=== PATIENT | male | born 1990 | race Caucasian/White ===

== ENCOUNTER 2020-07-27 10:48 | Outpatient (REF) | payer OTHER, SELFPAY ==
[2020-07-27 11:26] LABS: COVID-19 Test Negative (Negative); IDNOW Serial# 55D5AD1C
== END 2020-07-27 10:49 | disposition home or self-care (01) ==
LOC: HO.LAB 10:48
PROVIDERS: Visit Provider Internal Medicine
DX: Z20.822 Contact with and (suspected) exposure to COVID-19 (principal)
CPT/HCPCS: 36415; 87635; C9803

== ENCOUNTER 2021-02-19 04:57 | Inpatient (IN) | payer MEDICAID, SELFPAY ==
--- NOTE | ~2021-02-19 | MR_ITS ---
EXAMINATION: MR ABDOMEN WITHOUT CONTRAST CLINICAL INFORMATION: Acute gallstone pancreatitis COMPARISON: None. TECHNIQUE: MR abdomen is performed without gadolinium contrast. MRCP sequences were also performed. FINDINGS: LUNG BASES: The visualized lung bases are unremarkable. LIVER, GALLBLADDER, AND BILIARY TREE: The liver is normal in size, smooth in contour, and normal in signal. No focal hepatic lesion. There are gallstones in the gallbladder. The gallbladder wall is thickened and edematous. The gallbladder wall measures up to 1 cm. The gallbladder is normal in size. There is no intrahepatic biliary duct dilatation. The common bile duct is minimally dilated measuring 8 to 9 mm. No common bile duct stone is seen. PANCREAS: The pancreas is enlarged. There is diffuse interstitial edema of the pancreas. The main pancreatic duct does not appear dilated. There is peripancreatic fluid and small amount of fluid in the bilateral anterior pararenal spaces and bilateral paracolic gutters likely related to pancreatitis. No focal fluid in or adjacent to the pancreas is seen. SPLEEN: Unremarkable. ADRENAL GLANDS: Unremarkable. KIDNEYS AND URETERS: The kidneys are normal in size and shape. No hydronephrosis. No perinephric stranding. GASTROINTESTINAL TRACT: No bowel obstruction. No ascites or fluid collection. ABDOMINAL WALL: No significant hernia is appreciated. LYMPH NODES: No lymphadenopathy. VASCULAR: Unremarkable. OSSEOUS STRUCTURES: Marrow signal normal. MR/MR MRCP IMPRESSION: Acute interstitial pancreatitis similar to recent CT scan. Small amount of ascites. No organized fluid collection or pancreatic duct dilatation seen. Gallstones. Diffuse gallbladder wall thickening and edema. Normal caliber intrahepatic bile ducts. Minimally dilated common bile duct measuring 8 to 9 mm. No common bile duct stone seen.
--- NOTE | ~2021-02-19 | US_ITS ---
EXAMINATION: US ABDOMEN LIMITED CLINICAL INFORMATION: Right upper quadrant pain. COMPARISON: Corresponding CT abdomen pelvis TECHNIQUE: Real-time imaging of the right upper quadrant abdominal viscera. Today's examination is mildly limited secondary to overlying bowel gas. FINDINGS: PANCREAS: The pancreas is primarily obscured by overlying bowel gas and therefore not accurately evaluated. A small amount of peripancreatic fluid is noted. LIVER: The liver is normal in size. The liver contour is normal. Parenchymal echogenicity is normal. No focal hepatic lesion. Trace intrahepatic biliary ductal dilatation demonstrated. GALLBLADDER: Abnormal appearance of the gallbladder. The gallbladder wall demonstrates diffuse heterogeneous thickening measuring up to 1.7 cm. Fluid is noted within the gallbladder wall. Echogenic foci in the uterus of the gallbladder wall suggests adenomyomatosis. Gallstones are also noted within the gallbladder lumen. A sonographic Su sign is also present. COMMON BILE DUCT: Poorly visualized but measures approximately 8 mm in diameter. RIGHT KIDNEY: Normal. No hydronephrosis. No renal calculi or focal parenchymal lesions. The kidney measures 11.2 cm in maximum dimension. FREE FLUID: Minimal US/US abdomen limited IMPRESSION: 1. The pancreas is poorly visualized although peripancreatic fluid is noted consistent with suspected pancreatitis identified on corresponding CT imaging. 2. Abnormal appearance of the gallbladder demonstrates gallstones, diffuse gallbladder wall thickening and a positive sonographic Su's sign. Ultrasound findings would be consistent with acute cholecystitis, however, it is also possible they are reactive secondary to adjacent pancreatitis. Clinical correlation is recommended. Short-term interval follow-up imaging is recommended at a minimum.
--- NOTE | ~2021-02-19 | CT_ITS ---
EXAMINATION: CT ABDOMEN AND PELVIS WITH CONTRAST CLINICAL INFORMATION: Follow-up pancreatitis COMPARISON: Previous CT scan, ultrasound and MRI of the abdomen 02/19/2021 TECHNIQUE: Multidetector volumetric images were obtained from the superior aspect of the liver through the pubic symphysis following administration 85 mL of Omnipaque 350 intravenous contrast. Sagittal and coronal reformatted images were obtained on the technologist's workstation. Oral contrast: Yes This CT examination was performed using dose optimization techniques as appropriate, variously including the following: *Automated exposure control *Adjustment of mA and/or kV according to patient size (this includes techniques or standardized protocols for targeted exams where dose is matched to indication/reason for exam; i.e. extremities or head) *Use of iterative reconstruction technique DLP: 499 mGy-cm FINDINGS: LUNG BASES: There are bilateral pleural effusions and lower lobe atelectasis/consolidation, left greater than right. This is increased from previous exam. LIVER, GALLBLADDER, AND BILIARY TREE: The liver is normal in size, shape, and attenuation. No focal hepatic lesion or biliary ductal dilatation is present. The gallbladder is normal in size. There is pericholecystic fluid and mild gallbladder wall edema. PANCREAS: The pancreas enhances normally. The pancreas appears enlarged. There is interval increase in fluid seen surrounding the pancreas, in the lesser sac, periportal region, pararenal fascia, small bowel mesentery, bilateral paracolic gutters and pelvis. There is no focal collection in the pancreas. The main pancreatic duct does not appear dilated. SPLEEN: The spleen is slightly enlarged and measures 14 cm in length. The spleen is otherwise unremarkable. ADRENAL GLANDS: Unremarkable. KIDNEYS AND URETERS: The kidneys are normal in size, shape, and attenuation. No hydronephrosis, hydroureter, or calculi seen. No perinephric stranding. BLADDER: Unremarkable. GASTROINTESTINAL TRACT: The small and large bowel are unremarkable. ABDOMINAL WALL: No significant hernia is appreciated. LYMPH NODES: Normal. VASCULAR: Unremarkable. The splenic vein and portal vein are patent. PELVIC VISCERA: Unremarkable. OSSEOUS STRUCTURES: Unremarkable. CT/CT abdomen pelvis w con IMPRESSION: Acute interstitial pancreatitis. The pancreas enhances normally. There is interval increase in ascites and fluid surrounding the pancreas. There is interval increase in bilateral pleural effusions and adjacent lower lobe atelectasis or consolidation.
--- NOTE | ~2021-02-19 | CT_ITS ---
EXAMINATION: CT ABDOMEN AND PELVIS WITH CONTRAST CLINICAL INFORMATION: Follow-up pancreatitis COMPARISON: Previous CT scans most recent 02/23/2021 TECHNIQUE: Multidetector volumetric images were obtained from the superior aspect of the liver through the pubic symphysis following administration 85 mL of Omnipaque 350 intravenous contrast. Sagittal and coronal reformatted images were obtained on the technologist's workstation. Oral contrast: Yes This CT examination was performed using dose optimization techniques as appropriate, variously including the following: *Automated exposure control *Adjustment of mA and/or kV according to patient size (this includes techniques or standardized protocols for targeted exams where dose is matched to indication/reason for exam; i.e. extremities or head) *Use of iterative reconstruction technique DLP: 462 mGy-cm FINDINGS: LUNG BASES: There are bilateral pleural effusions and lower lobe atelectasis or elevation. This consolidation. This LIVER, GALLBLADDER, AND BILIARY TREE: The liver is normal in size, shape, and attenuation. No focal hepatic lesion or biliary ductal dilatation is present. The gallbladder is normal in size. There is gallbladder wall thickening or pericholecystic fluid that appears unchanged. PANCREAS: There is enlargement of the pancreas and peripancreatic fluid again suggestive of acute interstitial pancreatitis. There is no evidence of pancreatic necrosis. No focal fluid collection in the pancreas or pancreatic duct dilatation is seen. There are fluid collections are seen surrounding the pancreas, surrounding the stomach and spleen, in the lesser sac, periportal region, bilateral pararenal spaces and at the root of the small bowel mesentery. There is a small amount of fluid around the liver and in the pelvis. This does not appear appreciably changed from most recent exam 02/23/2021. SPLEEN: The spleen is slightly enlarged measuring 14.5 cm in length. ADRENAL GLANDS: Unremarkable. KIDNEYS AND URETERS: The kidneys are normal in size, shape, and attenuation. No hydronephrosis, hydroureter, or calculi seen. No perinephric stranding. BLADDER: Unremarkable. GASTROINTESTINAL TRACT: The small and large bowel are unremarkable. The appendix is unremarkable. ABDOMINAL WALL: No significant hernia is appreciated. LYMPH NODES: Normal. VASCULAR: Unremarkable. PELVIC VISCERA: Unremarkable. OSSEOUS STRUCTURES: Unremarkable. CT/CT abdomen pelvis w con IMPRESSION: No change in acute pancreatitis and surrounding peripancreatic fluid and ascites from most recent exam 02/23/2021. Bilateral pleural effusions and adjacent lower lobe atelectasis or consolidation which appears slightly improved on the right.
--- NOTE | ~2021-02-19 | CT_ITS ---
EXAMINATION: CT ABDOMEN AND PELVIS WITH CONTRAST CLINICAL INFORMATION: Severe diffuse abdominal pain, nausea and vomiting for 2 days. COMPARISON: Abdomen CT from 01/24/2016 TECHNIQUE: Multidetector volumetric images were obtained from the superior aspect of the liver through the pubic symphysis following administration 85 mL of Omnipaque 350 intravenous contrast. Sagittal and coronal reformatted images were obtained on the technologist's workstation. Oral contrast was given. This CT examination was performed using dose optimization techniques as appropriate, variously including the following: *Automated exposure control *Adjustment of mA and/or kV according to patient size (this includes techniques or standardized protocols for targeted exams where dose is matched to indication/reason for exam; i.e. extremities or head) *Use of iterative reconstruction technique DLP: 511 mGy-cm FINDINGS: LUNG BASES: Normal. No pulmonary consolidation or pleural effusion at either lung base. HEPATOBILIARY: Liver has normal size and contour. No focal liver lesion. Gallbladder wall is diffusely thickened/edematous, and this appears to be reactive to the pancreatitis. No radiopaque gallstones. Common bile duct measures up to 0.7 cm. There are no radiopaque stones within the common duct. PANCREAS: Diffuse interstitial edema and enlargement of the pancreas without focal necrosis. Peripancreatic fluid is present without focal organized collection. No pancreatic ductal dilatation. SPLEEN: Normal size. There appears to be a very small subcapsular cyst in the superior spleen. ADRENAL GLANDS: Normal. KIDNEYS AND URETERS: The kidneys have normal size and cortical thickness. No perinephric fluid collection. No urolithiasis or hydroureteronephrosis. BLADDER: Normal. No calculi or wall thickening. BOWEL AND PERITONEUM: Stomach is unremarkable. No dilated loops of bowel. The appendix is normal. No overt bowel wall thickening or mesenteric fat stranding. No pneumoperitoneum. Small volume of ascitic fluid is present in the abdomen and pelvis.. ABDOMINAL WALL: Unremarkable. VASCULATURE: Unremarkable. LYMPH NODES: No pathologic sized lymph nodes in the abdomen or pelvis. No inguinal lymphadenopathy. PELVIC VISCERA: Prostate gland is unremarkable. SKELETAL: The visualized lower thoracic and lumbar vertebra are unremarkable. There is a bone island of the proximal right femur. No suspicious osseous lesion. CT/CT abdomen pelvis w con IMPRESSION: * Acute interstitial pancreatitis with peripancreatic fluid. No focal organized collection. * The diffuse gallbladder wall thickening/edema appears to be reactive to the pancreatitis. No gallstones are seen. * Small amount of ascitic fluid is present in the abdomen and pelvis.
[2021-02-19 05:10] VITALS: BP 181/114; PULSE 58; RESP 16; TEMP 36.7; O2SAT 97; BMI 28.2
--- NOTE | 2021-02-19 05:26 | ED.ABDPAIN ---
HPI - Abdominal Pain General Chief Complaint: Abdominal Pain Stated Complaint: stomach pain Time Seen by Provider: 02/19/21 05:18 Source: patient Mode of arrival: ambulatory Limitations: no limitations History of Present Illness HPI narrative: 30-year-old male who presents emergency department for evaluation of 3 days of abdominal pain, nausea and vomiting. The patient states that he is having pain throughout his entire abdomen. The pain is a constant, ripping like pain which is 10/10 at its worst. Patient complains of constant nausea with 2-3 episodes of vomiting per day. States he has not been able to eat or drink the last 24 hours. The patient denied change in his bowel movements; he has had no diarrhea, dark tarry stools or bloody stools. He states that he is constipated is not moved his bowels and 24 hours. He denied fever, chills, chest pain, shortness of breath, frequency, urgency or dysuria. This is his 1st episode of this type of severe pain. The patient denies alcohol and drug use. Related Data Home Medications Medication Instructions Recorded Confirmed bismuth subsalicylate 525 mg/15 mL 525 mg PO Q30M PRN 02/19/21 02/19/21 oral suspension ibuprofen 200 mg tablet 400 mg PO Q6H PRN 02/19/21 02/19/21 Allergies Allergy/AdvReac Type Severity Reaction Status Date / Time No Known Allergies Allergy Verified 02/19/21 05:10 [No Known Allergies*] Review of Systems Review of Systems Yes all other systems are reviewed and are negative Physical Exam Vital Signs: Vital Signs: Last Vital Signs Temp 98 F 02/21/21 15:43 Pulse 100 02/21/21 15:43 Resp 18 02/21/21 15:43 BP 165/90 H 02/21/21 15:43 Pulse Ox 94 02/21/21 15:43 Body Mass Index 28.2 Const: Other: Awake, alert, male patient, he does appear to be pale, jaundice with icteric sclera, he also appears to be in distress secondary to his abdominal pain. He is able to answer all questions appropriately. HENMT: Head: Yes normal to inspection, Yes normocephalic and Yes atraumatic Ears: external ears normal General nose exam: Normal external nose present Face and sinus: Yes normal facial exam Mouth: Normal oral and palatal mucosa present Throat: Yes posterior oropharynx normal Eyes: Alignment and Position: position normal Periorbital: periorbital findings normal Eyelids: Yes eyelids normal Conjunctivae: conjunctivae normal Sclerae: scleral abnormal (Icteric) Pupils: Equal, round and reactive pupils present Neck: Neck: Yes normal visual inspection, Yes no lymphadenopathy, Yes trachea midline and Yes supple Chest: Chest palpation & inspection: normal inspection of the chest and normal palpation of entire chest wall Resp: Effort & Inspection: normal respiratory effort and able to speak in complete sentences Auscultation: clear to auscultation bilaterally Cardio: Rate: regular rate Rhythm: regular rhythm Heart sounds: S1 normal heart sound present, S2 normal heart sound present and no murmurs GI: Inspection: Yes normal to inspection Palpation (GI): Soft to palpation, Tenderness to palpation present (GI) in the epigastrum (Mild), in the LLQ (Mild), in the RLQ (Moderate), in the LUQ (Mild) and in the RUQ (Moderate) and no guarding Auscultation: normal bowel sounds : General: Yes no CVA tenderness Back/Spine/Pelvis: Back: no CVA tenderness Skin: Other: Pale, jaundice Neuro: Cranial nerves: Yes CN's II-XII intact bilaterally and Yes Equal, round and reactive pupils present Cognition (Neuro): normal cognition Motor exam (neuro): 5/5 motor strength present throughout Extrem: General: Yes normal to inspection Psych: Appearance: grossly normal Speech and movement: Normal speech and movement present Affect: normal affect Attitude: cooperative Thought process: Normal thought process present Thought content: Normal thought content present Course Course Course Narrative: 30-year-old male with a history of hypertension not on medications who presents emergency department for evaluation of 2-3 days severe abdominal pain with constant nausea and 2-3 episodes of vomiting per day. Patient is not been able to eat or drink for lost 24 hours secondary to symptoms. The patient's vital signs did reveal that he was hypertensive with a blood pressure of 181/114 otherwise were unremarkable. The patient appeared to be pale, his skin was jaundice and sq tearing. The patient abdominal exam revealed diffuse abdominal tenderness with increased tenderness in the right upper quadrant and right lower quadrant. The differential includes was not limited to gastritis, esophagitis, biliary disease, appendicitis, diverticulitis, gallstone pancreatitis, acute hepatitis, infectious hepatitis. I ordered a CBC, CMP, lipase, urinalysis, alcohol level, urine drug screen. CT scan of the abdomen pelvis with IV contrast will also be obtained . The patient's's pain was treated Toradol 30 mg IV, Zofran 4 mg IV and normal saline x1 L. 0643: The patient got no improvement with the Toradol and I did order morphine 4 mg IV. The patient's laboratory evaluation [place] [address], and elevated H&H of 17 and 53 and an elevated platelet count of 459. The patient's LFTs were abnormal with an elevated AST and ALT of 119 into 139. Patient's alk-phos was elevated 243 in the patient's total bilirubin was elevated at 6.3. These findings suggest that the patient does have an obstructive process, most likely gallstone pancreatitis. Patient's lipase is pending but the lab states that his high and they are trying to dilute it to get a number. Given the potential for pancreatic necrosis, I did order lactic acid lipase and blood cultures x2. Patient will be treated with Zosyn 4.5 g IV. 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 He states however he does purchase gabapentin and takes 6000 mg of gabapentin per day. It is possible that high does the gabapentin could be causing his pancreatitis as well. At the end of my shift, the lipase is pending in the patient's CT scan is pending. The patient's care was turned over to my colleague, Dr. Coffey. MDM - Abdominal Pain Lab Data Result diagrams: 02/21/21 08:35 02/21/21 08:35 Labs: Lab Results 02/19/21 02/19/21 02/19/21 Range/Units 05:24 05:24 05:24 WBC 23.7 H (4.8-10.8) X10*3/uL RBC 6.31 H (4.60-5.80) X10*6/uL Hgb 17.2 (14.0-18.0) g/dl Hct 53.0 H (42.0-52.0) % MCV 84.0 (80.0-98.0) fL MCH 27.3 (27.0-33.0) pg MCHC 32.5 (31.0-36.0) g/dl RDW 15.0 (11.0-16.0) % Plt Count 459 H (160-400) X10*3/uL MPV 10.8 (9.4-12.4) fL Immature Gran % (Auto) 0.5 H (0.0-0.4) % Neut % (Auto) 87.8 H (45-73) % Lymph % (Auto) 4.5 L (20-40) % [place] % (Auto) 7.0 (2-11) % Eos % (Auto) 0.0 (0-4) % Baso % (Auto) 0.2 (0-2) % Lymph # (Auto) 1.1 L (1.2-4.9) X10*3/uL [place] # (Auto) 1.7 H (0.1-1.2) X10*3/uL Eos # (Auto) 0.0 (0.0-0.4) X10*3/uL Baso # (Auto) 0.1 (0.0-0.2) X10*3/uL Abs Immat Gran (auto) 0.11 H (0.00-0.03) X10*3/uL Absolute Neuts (auto) 20.8 H (2.0-8.3) x10*3/uL Absolute Nucleated RBC 0.000 (0.0-0.012) X10*3/uL Nucleated RBC % (auto) 0.0 (0.0-0.2) /100WBC Smear Tech's Comments VERIFIED Sodium 142 (135-145) mmol/L Potassium 4.2 (3.3-5.1) mmol/L Chloride 99 (96-108) mmol/L Carbon Dioxide 26 (22-29) mmol/L Anion Gap 21 H (12-20) BUN 8 L (9-16) mg/dL Creatinine 1.04 (0.5-1.4) mg/dL Estim Creat Clear Calc 105.3 Estimated GFR > 60 Random Glucose TNP Fasting Glucose 197 H (60-99) mg/dL Lactic Acid (0.5-2.0) mmol/L Calcium 9.5 (8.4-10.2) mg/dL Total Bilirubin 6.2 H (0.0-1.0) mg/dL AST 119 H (5-37) U/L ALT 239 H (0-40) U/L Alkaline Phosphatase 243 H (39-117) U/L Total Protein 7.9 (6.5-8.0) g/dL Albumin 4.7 (3.5-5.0) g/dL Triglycerides 121 mg/dL Lipase 39218 H (8-78) U/L Ethyl Alcohol < 10 mg/dL COVID-19 ([facility]) (Negative) COVID-19 Clin Com 02/19/21 02/19/21 Range/Units 05:37 07:21 WBC (4.8-10.8) X10*3/uL RBC (4.60-5.80) X10*6/uL Hgb (14.0-18.0) g/dl Hct (42.0-52.0) % MCV (80.0-98.0) fL MCH (27.0-33.0) pg MCHC (31.0-36.0) g/dl RDW (11.0-16.0) % Plt Count (160-400) X10*3/uL MPV (9.4-12.4) fL Immature Gran % (Auto) (0.0-0.4) % Neut % (Auto) (45-73) % Lymph % (Auto) (20-40) % [place] % (Auto) (2-11) % Eos % (Auto) (0-4) % Baso % (Auto) (0-2) % Lymph # (Auto) (1.2-4.9) X10*3/uL [place] # (Auto) (0.1-1.2) X10*3/uL Eos # (Auto) (0.0-0.4) X10*3/uL Baso # (Auto) (0.0-0.2) X10*3/uL Abs Immat Gran (auto) (0.00-0.03) X10*3/uL Absolute Neuts (auto) (2.0-8.3) x10*3/uL Absolute Nucleated RBC (0.0-0.012) X10*3/uL Nucleated RBC % (auto) (0.0-0.2) /100WBC Smear Tech's Comments Sodium (135-145) mmol/L Potassium (3.3-5.1) mmol/L Chloride (96-108) mmol/L Carbon Dioxide (22-29) mmol/L Anion Gap (12-20) BUN (9-16) mg/dL Creatinine (0.5-1.4) mg/dL Estim Creat Clear Calc Estimated GFR Random Glucose Fasting Glucose (60-99) mg/dL Lactic Acid 1.3 (0.5-2.0) mmol/L Calcium (8.4-10.2) mg/dL Total Bilirubin (0.0-1.0) mg/dL AST (5-37) U/L ALT (0-40) U/L Alkaline Phosphatase (39-117) U/L Total Protein (6.5-8.0) g/dL Albumin (3.5-5.0) g/dL Triglycerides mg/dL Lipase (8-78) U/L Ethyl Alcohol mg/dL COVID-19 (LESLY) Negative (Negative) COVID-19 Clin Com See Note Discharge Plan Discharge Clinical Impression: Pancreatitis Patient Disposition: Admitted As Inpatient Interventions: Admission Worksheet (ED) Last Done: 02/20/21 07:50 Discharge Date/Time: 02/20/21 07:53 [facility] Past Medical History [facility] Narrative: Social history: The patient denies tobacco use. He denies alcohol use. He denies drug use. Medical History HTN (hypertension) Social History Social History Household Members: Family Housing: Apartment Do you presently have visiting nurse or other home services: No Patient Tobacco Use Status: Never used Tobacco Use of substances other than those prescribed or required for medical reasons: No Substance Use Type: Former Substance User Currently Displaying Signs/Symptoms of Drug Intoxication Withdrawal: No Have you been hit, kicked, punched, or otherwise hurt by someone within the past year? If so, by whom?: No Do you feel safe in your current relationship?: Yes Is there a partner from a previous relationship who is making you feel unsafe now?: No Are you made to feel afraid or neglected: No Advance Directives: No Advance Directives Information Provided: Yes Advance Directives on File: No Do you have thoughts of harming others: None Do you have a plan to hurt others: No Plan Recently lost weight without trying: No Nutrition Risks: No Nutritional Risk Poor oral hygiene: No service: No Current occupational status: employed
[2021-02-19] MEDS: ondansetron HCL 4 MG/2 ML VIAL IVPUSH (05:32)
[2021-02-19] MEDS: Ketorolac Tromethamine 15 MG/ML VIAL 30 MG IVPUSH (05:32)
[2021-02-19 05:33] LABS: Basophils Absolute Auto 0.1 X10*3/uL (0.0-0.2); Basophils Percent Auto 0.2 % (0-2); Hemoglobin 17.2 g/dl (14.0-18.0); Imm Gran Abs Auto 0.11 X10*3/uL (0.00-0.03); Imm Gran Pct Auto 0.5 % (0.0-0.4); Lymphocytes Absolute Auto 1.1 X10*3/uL (1.2-4.9); Lymphocytes Percent Auto 4.5 % (20-40); MANUAL DIFF FLAG SCAN; Mean Corpuscular HGB Conc 32.5 g/dl (31.0-36.0); Mean Corpuscular Hemoglobin 27.3 pg (27.0-33.0); Mean Platelet Volume 10.8 fL (9.4-12.4); Monocytes Absolute Auto 1.7 X10*3/uL (0.1-1.2); Neutrophils Absolute Auto 20.8 x10*3/uL (2.0-8.3); Neutrophils Percent Auto 87.8 % (45-73); Platelet Count 459 X10*3/uL (160-400); Red Blood Count 6.31 X10*6/uL (4.60-5.80); SCAN SMEAR FLAG 1; White Blood Count 23.7 X10*3/uL (4.8-10.8)
[2021-02-19] MEDS: 0.9 % Sodium Chloride 1,000 ML 999 ML IV ×2 (05:34→07:23)
[2021-02-19 05:49] LABS: SLIDE REVIEW VERIFIED
[2021-02-19 05:55] LABS: Ethanol < 10 mg/dL
[2021-02-19 05:57] LABS: COVID-19 Test Negative (Negative)
[2021-02-19 06:06] LABS: Alanine Aminotransferase 239 U/L (0-40); Albumin Level 4.7 g/dL (3.5-5.0); Alkaline Phosphatase 243 U/L (39-117); Anion Gap 21 (12-20); Aspartate Amino Transferase 119 U/L (5-37); Bilirubin Total 6.2 mg/dL (0.0-1.0); Blood Urea Nitrogen 8 mg/dL (9-16); Calcium 9.5 mg/dL (8.4-10.2); Carbon Dioxide 26 mmol/L (22-29); Chloride 99 mmol/L (96-108); Creatinine Clr Calc Pharmacy 105.3; Estimated Glomerular Filt Rate > 60; Glucose Fasting 197 mg/dL (60-99); Potassium 4.2 mmol/L (3.3-5.1); Sodium 142 mmol/L (135-145); Total Protein 7.9 g/dL (6.5-8.0)
[2021-02-19] MEDS: Morphine Sulfate 4 MG/ML CARTRIDGE IVPUSH (06:20)
[2021-02-19] MEDS: iohexoL 350 MG/ML 100 ML INFUS..BTL 85 ML IV (06:53)
[2021-02-19 06:57] LABS: Lipase 12376 U/L (8-78)
[2021-02-19] MEDS: HYDROmorphone HCl 1 MG/ML SYRINGE IVPUSH ×3 (07:23→22:31)
[2021-02-19] MEDS: Piperacillin Sodium/Tazobactam 4.5 GM in 0.9 % Sodium Chloride 100 ML IV (07:24)
[2021-02-19 07:43] LABS: Lactic Acid 1.3 mmol/L (0.5-2.0)
[2021-02-19] MEDS: HYDROmorphone HCl 0.5 MG/0.5 ML SYRINGE IVPUSH ×3 (08:10→11:18)
--- NOTE | 2021-02-19 08:12 | PHA.MEDREC ---
Pharmacy Consult ? Medication Reconciliation Pharmacy has completed the medication reconciliation. Patient reports taking up to 6000 mg of gabapentin throughout the day. Reports he gets gabapentin from off the street. Iveth Muller, TracyD
[2021-02-19] MEDS: cefTRIAXone sodium 2 GM in 0.9 % Sodium Chloride 50 ML IV (09:36)
[2021-02-19 10:00] VITALS: BP 132/68; PULSE 58; RESP 16; TEMP 36.6; O2SAT 97
--- NOTE | 2021-02-19 10:51 | PM.IMHP ---
History of Present Illness Date of Service: 02/19/21 Chief Complaint: Abdominal pain 30 year make with history of substance use but has been clean for 3 years, but has been using gabapentin up to 6000 mg a day. He presents with abdominal pain since 3 days, described as epigastric pain that very severe initially intermittent and now persistent, and can't get comfortable in any position, associated with nausea and vomitting. His work up has revealed severe pancreatitis with Lipase of 12, 376, CT shows pancreatitis, US demonstarate gallstones and diffuse gallbladder wall thickening. Some [facility] releieve with dilaudid Review of Systems Review of Systems: No fever, abdominal pain N/V PENDING SALE TO [facility] Medical History HTN (hypertension) Social History Household Members: Family Housing: Apartment Do you presently have visiting nurse or other home services: No Patient Tobacco Use Status: Never used Tobacco Use of substances other than those prescribed or required for medical reasons: No Substance Use Type: Former Substance User Currently Displaying Signs/Symptoms of Drug Intoxication Withdrawal: No Have you been hit, kicked, punched, or otherwise hurt by someone within the past year? If so, by whom?: No Do you feel safe in your current relationship?: Yes Is there a partner from a previous relationship who is making you feel unsafe now?: No Are you made to feel afraid or neglected: No Advance Directives: No Advance Directives Information Provided: Yes Advance Directives on File: No Do you have thoughts of harming others: None Do you have a plan to hurt others: No Plan Recently lost weight without trying: No Nutrition Risks: No Nutritional Risk Poor oral hygiene: No service: No Current occupational status: employed Meds Allergies Allergy/AdvReac Type Severity Reaction Status Date / Time No Known Allergies Allergy Verified 02/19/21 05:10 [No Known Allergies*] Active Medications: Current Medications Pharmacy Consult (Consult Rx Perform Med Rec) 1 each MISCELLANE ONCE PRN PRN Reason: Consult order Home Medications Medication Instructions Recorded Confirmed Last Taken Type bismuth subsalicylate 525 mg/15 mL 525 mg PO Q30M PRN 02/19/21 02/19/21 02/19/21 History oral suspension ibuprofen 200 mg tablet 400 mg PO Q6H PRN 02/19/21 02/19/21 Unknown History Physical Exam Vital Signs and Narrative: Vital Signs: Last Vital Signs Temp 98.0 F 02/19/21 05:10 Pulse 58 02/19/21 05:10 Resp 16 02/19/21 05:10 BP 181/114 H 02/19/21 05:10 Pulse Ox 97 02/19/21 05:10 Body Mass Index 28.2 Const: Other: Constitutional: Alert, in no distress, overweight. Mental Status: Oriented to person, place and time. Eyes: Pupils are equal, round and reactive to light. Sclear icteris Ear, Nose and Throat: Oropharynx clear, mucous membranes moist. Respiratory: Clear to auscultation. No wheezing, rales or rhonchi. Cardiovascular: S1 S2 regular. No murmurs, rubs or gallops. Gastrointestinal: Abdomen soft, epigastric tenderness Neurologic: Cranial nerves II-XII grossly intact. No focal neurological deficits. Moves all extremities spontaneously.? Skin: No rashes or lesions.? Musculoskeletal: No cyanosis or clubbing. Psychiatric: Normal mood and affect? Results Labs CBC and Chem 7: 02/20/21 06:33 02/20/21 06:33 Labs: Laboratory Results - last 24 hr 02/19/21 02/19/21 02/19/21 05:24 05:24 05:24 MCV 84.0 MCH 27.3 MCHC 32.5 RDW 15.0 Plt Count 459 H MPV 10.8 Immature Gran % (Auto) 0.5 H Neut % (Auto) 87.8 H Lymph % (Auto) 4.5 L [place] % (Auto) 7.0 Eos % (Auto) 0.0 Baso % (Auto) 0.2 Lymph # (Auto) 1.1 L [place] # (Auto) 1.7 H Eos # (Auto) 0.0 Baso # (Auto) 0.1 Abs Immat Gran (auto) 0.11 H Absolute Neuts (auto) 20.8 H Absolute Nucleated RBC 0.000 Nucleated RBC % (auto) 0.0 Smear Tech's Comments VERIFIED Anion Gap 21 H Estim Creat Clear Calc 105.3 Estimated GFR > 60 Random Glucose TNP Fasting Glucose 197 H Lactic Acid Calcium 9.5 Total Bilirubin 6.2 H AST 119 H ALT 239 H Alkaline Phosphatase 243 H Total Protein 7.9 Albumin 4.7 Lipase 80700 H Ethyl Alcohol < 10 COVID-19 ([facility]) COVID-19 Clin Com 02/19/21 02/19/21 05:37 07:21 MCV MCH MCHC RDW Plt Count MPV Immature Gran % (Auto) Neut % (Auto) Lymph % (Auto) [place] % (Auto) Eos % (Auto) Baso % (Auto) Lymph # (Auto) [place] # (Auto) Eos # (Auto) Baso # (Auto) Abs Immat Gran (auto) Absolute Neuts (auto) Absolute Nucleated RBC Nucleated RBC % (auto) Smear Tech's Comments Anion Gap Estim Creat Clear Calc Estimated GFR Random Glucose Fasting Glucose Lactic Acid 1.3 Calcium Total Bilirubin AST ALT Alkaline Phosphatase Total Protein Albumin Lipase Ethyl Alcohol COVID-19 (LESLY) Negative COVID-19 Clin Com See Note Imaging Radiologist's Impressions: Impressions Abdomen/Pelvis CT 02/19/21 05:25 IMPRESSION: * Acute interstitial pancreatitis with peripancreatic fluid. No focal organized collection. * The diffuse gallbladder wall thickening/edema appears to be reactive to the pancreatitis. No gallstones are seen. * Small amount of ascitic fluid is present in the abdomen and pelvis. Abdomen Ultrasound 02/19/21 07:38 IMPRESSION: 1. The pancreas is poorly visualized although peripancreatic fluid is noted consistent with suspected pancreatitis identified on corresponding CT imaging. 2. Abnormal appearance of the gallbladder demonstrates gallstones, diffuse gallbladder wall thickening and a positive sonographic Su's sign. Ultrasound findings would be consistent with acute cholecystitis, however, it is also possible they are reactive secondary to adjacent pancreatitis. Clinical correlation is recommended. Short-term interval follow-up imaging is recommended at a minimum. Assessment and Plan (1) Pancreatitis, acute: Status: Acute 30 year old male with acute severe pancraitis, gallstone, elevated LFTS. Suspect gallstone pancreatitis or possible drug induced, ie gabapentin Plan: Acute pancreatitis Elevated LFTS -NPO, IVF, Dilaudid for pain -LFTS tomorrow -WBC level tomorrow -MRCP showed no stone -Empiric Zosyn if fever -Dilaudid for pain Quality Stroke Does the patient have a stroke diagnosis?: No VTE Prior VTE?: No VTE Risk Level:: Medical - low VTE Device Contraindication: Treatment Not Indicated VTE Drug Contraindication: Treatment Not Indicated
[2021-02-19 11:04] VITALS: BP 173/94; PULSE 54; RESP 22; TEMP 36.5; O2SAT 97
[2021-02-19 11:20] LABS: Triglycerides 121 mg/dL
[2021-02-19] MEDS: Dextrose 5 % and 0.45 % NaCl 1,000 ML 200 ML IVCONT ×2 (11:40→18:56)
--- NOTE | 2021-02-19 12:20 | P.CONGS_ITS ---
History of Present Illness Consult details Consult date: 02/19/21 Narrative: 30-year-old male referred for gallstone pancreatitis. He came to the ER this morning because of epigastric pain. He said that this has been going on for about 2-3 days now. He says that the pain extends to the entire upper abdomen. This seems to have been constant starting last night that so I decided to come to the ER early this morning. He has a little bit of nausea but no vomiting. He says he has had no similar problems in the past. He does have a history of drug abuse before. Review of Systems Constitutional: Constitutional: Denies chills and Denies fever(s) Cardiovascular: Cardiovascular: Denies chest pain, Denies dyspnea and Denies dyspnea on exertion Respiratory: Respiratory: Denies cough, Denies dyspnea and Denies dyspnea on exertion Gastrointestinal: Gastrointestinal: Denies hematochezia and Denies change in bowel habits Genitourinary: Genitourinary: Denies hematuria and Denies difficulty urinating Musculoskeletal: Musculoskeletal: Denies back pain and Denies limited range of motion Neurologic: Denies focal weakness and Denies convulsions Psychiatric: Psychiatric: Denies depression and Denies mood swings PMFSH Past Medical History Medical History HTN (hypertension) Social History Social History Household Members: Family Housing: Apartment Do you presently have visiting nurse or other home services: No Patient Tobacco Use Status: Never used Tobacco Use of substances other than those prescribed or required for medical reasons: No Substance Use Type: Former Substance User Currently Displaying Signs/Symptoms of Drug Intoxication Withdrawal: No Have you been hit, kicked, punched, or otherwise hurt by someone within the past year? If so, by whom?: No Do you feel safe in your current relationship?: Yes Is there a partner from a previous relationship who is making you feel unsafe now?: No Are you made to feel afraid or neglected: No Advance Directives: No Advance Directives Information Provided: Yes Advance Directives on File: No Do you have thoughts of harming others: None Do you have a plan to hurt others: No Plan Recently lost weight without trying: No Nutrition Risks: No Nutritional Risk Poor oral hygiene: No service: No Current occupational status: employed Meds Allergies Allergy/AdvReac Type Severity Reaction Status Date / Time No Known Allergies Allergy Verified 02/19/21 05:10 [No Known Allergies*] Active Medications: Current Medications Hydromorphone HCl (Hydromorphone Hcl 0.5 Mg/0.5 Ml Syringe) 0.5 mg SUBCUT Q4H PRN; Protocol PRN Reason: Pain, Severe (Pain Scale 7-10) Dextrose/Sodium Chloride (D51/2ns) 1,000 mls @ 200 mls/hr IVCONT .Q5H [facility] Melatonin (Melatonin 3 Mg Tablet) 6 mg PO BEDTIME PRN PRN Reason: Insomnia Ondansetron HCl (Ondansetron Hcl 4 Mg/2 Ml Vial) 4 mg IVPUSH Q8H PRN PRN Reason: Nausea and Vomiting Pharmacy Consult (Consult Rx Perform Med Rec) 1 each MISCELLANE ONCE PRN PRN Reason: Consult order Sodium Chloride (0.9 % Sodium Chloride Flush 3 Ml Syringe) 3 ml IVFLUSH QSHIFT [facility] Home Medications Medication Instructions Recorded Confirmed Last Taken Type bismuth subsalicylate 525 mg/15 mL 525 mg PO Q30M PRN 02/19/21 02/19/21 02/19/21 History oral suspension ibuprofen 200 mg tablet 400 mg PO Q6H PRN 02/19/21 02/19/21 Unknown History Physical Exam 2 Vital Signs: Vital Signs: Last Vital Signs Temp 97.7 F 02/19/21 11:04 Pulse 54 02/19/21 11:04 Resp 22 H 02/19/21 11:04 BP 173/94 H 02/19/21 11:04 Pulse Ox 97 02/19/21 11:04 Body Mass Index 28.2 Const: General: comfortable and no acute distress Orientation/consciousness: patient oriented x3 Neck: Neck: Yes no lymphadenopathy Resp: Auscultation: clear to auscultation bilaterally Cardio: Rhythm: regular rhythm GI: Other: Tender on the epigastric area, no guarding rebound, not distended Palpation (GI): Soft to palpation, no guarding and not rigid Neuro: General: patient oriented x3 Results Labs Result diagrams: 02/20/21 06:33 02/20/21 06:33 Labs: Abnormal lab results 02/19/21 02/19/21 Range/Units 05:24 05:24 WBC 23.7 H (4.8-10.8) X10*3/uL RBC 6.31 H (4.60-5.80) X10*6/uL Hct 53.0 H (42.0-52.0) % Plt Count 459 H (160-400) X10*3/uL Immature Gran % (Auto) 0.5 H (0.0-0.4) % Neut % (Auto) 87.8 H (45-73) % Lymph % (Auto) 4.5 L (20-40) % Lymph # (Auto) 1.1 L (1.2-4.9) X10*3/uL [place] # (Auto) 1.7 H (0.1-1.2) X10*3/uL Abs Immat Gran (auto) 0.11 H (0.00-0.03) X10*3/uL Absolute Neuts (auto) 20.8 H (2.0-8.3) x10*3/uL Anion Gap 21 H (12-20) BUN 8 L (9-16) mg/dL Fasting Glucose 197 H (60-99) mg/dL Total Bilirubin 6.2 H (0.0-1.0) mg/dL AST 119 H (5-37) U/L ALT 239 H (0-40) U/L Alkaline Phosphatase 243 H (39-117) U/L Lipase 55922 H (8-78) U/L Short CBC 02/19/21 Range/Units 05:24 WBC 23.7 H (4.8-10.8) X10*3/uL Hgb 17.2 (14.0-18.0) g/dl Hct 53.0 H (42.0-52.0) % Plt Count 459 H (160-400) X10*3/uL BMP 02/19/21 05:24 Sodium 142 Potassium 4.2 Chloride 99 Carbon Dioxide 26 BUN 8 L Creatinine 1.04 Calcium 9.5 Liver Function 02/19/21 Range/Units 05:24 Total Bilirubin 6.2 H (0.0-1.0) mg/dL AST 119 H (5-37) U/L ALT 239 H (0-40) U/L Alkaline Phosphatase 243 H (39-117) U/L Albumin 4.7 (3.5-5.0) g/dL All other labs normal. Imaging Abdomen CT scan report/results: report reviewed and image reviewed CT scan - pelvis: report reviewed and image reviewed Assessment and Plan (1) Pancreatitis, acute: Status: Acute He came in with with a 2-3 day history of epigastric pain. His CAT scan is consistent with pancreatitis. His lipase is at 12,000 as well. He denies any history of alcohol bingeing alcohol abuse. He said it has been about 4 years since he had alcohol. His ultrasound does show gallstones and this may be the likely etiology, although a lipase this high is unusual for gallstone pancreatitis. The changes seen on the gallbladder appears to be more of reactive from the pancreatitis. Management at this time is mostly supportive with pain management. He should be on clear liquids only at this point as well. His leukocytosis should be followed along with his lipase levels. I will follow along while he is in the hospital. His mother was with him during the discussion. I explained to both of them the plan and they said that they understand. Procedures Date of Service Date of Service: 02/19/21
--- NOTE | 2021-02-19 12:42 | PC.NURSE ---
pt medicated with Dilauded 0.5mg as documented in JUN. transporter at bedside to take pt to MRI. Pt requesting additional pain medication at this time, will message
[2021-02-19 12:46] LABS: Appearance Urine CLEAR; Color Urine DK YELLOW; Glucose Urine UA NEG (NEG); Leukocyte Esterase Urine NEG (NEG); Nitrite Urine NEG (NEG); PH 5.5 (5.0-8.0); Specific Gravity - Urine 1.015 (1.005-1.025); Urine Blood NEG (NEG); Urine Ketones 15 MG/DL (NEG); Urine Protein TRACE MG/DL (NEG-TRACE)
[2021-02-19 13:05] LABS: Amphetamine Screen Urine Not Detected (Not Detect); Barbiturates, Urine Not Detected (Not Detect); Benzodiazepines Screen Urine Not Detected (Not Detect); Cannabinoid Screen Urine POSITIVE (Not Detect); Cocaine Screen Urine Not Detected (Not Detect); Fentanyl, urine Not Detected (Not Detect); Opiate Screen Urine POSITIVE (Not Detect); Phencyclidine Screen Urine Not Detected (Not Detect)
[2021-02-19 14:33] VITALS: BP 152/70; PULSE 56
[2021-02-19] MEDS: HYDROmorphone HCl 0.5 MG/0.5 ML SYRINGE SUBCUT (15:04)
[2021-02-19 15:17] LABS: Hematocrit 49.6 % (42.0-52.0); Hemoglobin 16.2 g/dl (14.0-18.0); Mean Corpuscular HGB Conc 32.7 g/dl (31.0-36.0); Mean Corpuscular Hemoglobin 27.2 pg (27.0-33.0); Mean Corpuscular Volume 83.2 fL (80.0-98.0); Mean Platelet Volume 10.9 fL (9.4-12.4); Platelet Count 393 X10*3/uL (160-400); Red Blood Count 5.96 X10*6/uL (4.60-5.80); Red Cell Distribution Width 15.2 % (11.0-16.0); White Blood Count 18.8 X10*3/uL (4.8-10.8)
[2021-02-19 16:17] LABS: Lipase 3002 U/L (8-78)
--- NOTE | 2021-02-19 17:24 | PM.EVENT ---
Event Note Date of Service: 02/19/21 Event Note: still with epigastric pain responding well to pain meds, but says he needs this more frequently abd soft, tender on epig area stable VS lipase much improved, WBC lower this afternoon await GI consult - bilirubin elevated pain mgt - increased frequency of pain meds MRCP - no obvious CBD stone ffup labs ordered for tomorrow - lfts, lipase
[2021-02-19] MEDS: oxyCODONE HCl Immed Release 5 MG TABLET 10 MG PO (17:29)
--- NOTE | 2021-02-19 17:59 | PC.NURSE ---
Addendum entered by Janet Villegas RN 02/19/21 18:02: phone Original Note: ok to talk to aunt Shakila per pt
[2021-02-19 22:23] VITALS: BP 159/97; PULSE 102; RESP 16; TEMP 36.6; O2SAT 98
--- NOTE | 2021-02-19 22:37 | PC.NURSE ---
pt calm and cooperative, awaiting bed assignment.
--- NOTE | 2021-02-19 23:05 | MHC.CM.PN ---
CM attempted to meet with admitted patient with bed assignment pending. Pt sleeping. Unable to wake. CM to follow for d/c needs.
[2021-02-19 23:27] VITALS: BP 142/93; PULSE 95; RESP 16; O2SAT 97
[2021-02-20] VITALS (9 sets, daily range): BP systolic 133–165; BP diastolic 77–95; PULSE 69–108; RESP 16–20; TEMP 36.3–36.9; O2SAT 94–96
[2021-02-20] MEDS: Dextrose 5 % and 0.45 % NaCl 1,000 ML 200 ML IVCONT ×5 (00:09→22:09)
[2021-02-20] MEDS: HYDROmorphone HCl 1 MG/ML SYRINGE IVPUSH ×8 (02:04→23:29)
[2021-02-20 06:44] LABS: Hematocrit 53.1 % (42.0-52.0); Hemoglobin 17.1 g/dl (14.0-18.0); Mean Corpuscular HGB Conc 32.2 g/dl (31.0-36.0); Mean Corpuscular Hemoglobin 27.1 pg (27.0-33.0); Mean Corpuscular Volume 84.3 fL (80.0-98.0); Mean Platelet Volume 11.4 fL (9.4-12.4); Platelet Count 407 X10*3/uL (160-400); White Blood Count 21.3 X10*3/uL (4.8-10.8)
[2021-02-20 07:36] LABS: Alanine Aminotransferase 94 U/L (0-40); Albumin Level 3.4 g/dL (3.5-5.0); Alkaline Phosphatase 140 U/L (39-117); Anion Gap 11 (12-20); Aspartate Amino Transferase 18 U/L (5-37); Bilirubin Direct 1.1 mg/dL (0.0-0.5); Bilirubin Total 2.3 mg/dL (0.0-1.0); Blood Urea Nitrogen 8 mg/dL (9-16); Calcium 7.7 mg/dL (8.4-10.2); Carbon Dioxide 26 mmol/L (22-29); Chloride 104 mmol/L (96-108); Estimated Glomerular Filt Rate > 60; Glucose Random 138 mg/dL (60-115); Potassium 4.1 mmol/L (3.3-5.1); Sodium 137 mmol/L (135-145); Total Protein 5.3 g/dL (6.5-8.0)
--- NOTE | 2021-02-20 07:49 | PC.NURSE ---
nurse to nurse given to iván. pt aware of plan of care for admission to hosp.
[2021-02-20] MEDS: 0.9 % Sodium Chloride Flush 3 ML SYRINGE IVFLUSH (08:13)
--- NOTE | 2021-02-20 09:06 | MHC.CM.PN ---
PATIENT IS FULLY INDEPENDENT. HE USES NO DME OR VNA SERVICES AND IS EMPLOYED AND ABLE TO TRANSPORT SELF. HE HAS NO INSURANCE OR PCP. HE IS IN AGREEMENT WITH REQUEST FOR ASSIST FROM [facility] [employer] FACE SHEET FAXED ALONG WITH REQUEST FOR ASSIST. PATIENT STATES THAT HE HAS HAD THE FULL PFIZER SERIES, WITH THE LAST DOSE AT [facility] ON [address] IN [place] HE IS UNABLE TO RECALL THE DATES, BUT DOES STATE THAT HIS VACCINATION CARD IS IN HIS CAR NO HCP ON FILE AND PATIENT OFFERED ASSISTANCE FOR COMPLETION OF DOCUMENTATION IF HE CHOOSES AN AGENT CASE MANAGEMENT FOLLOWING..
--- NOTE | 2021-02-20 10:36 | P.PNIM_ITS ---
Subjective Subjective Date of Service: 02/20/21 Interval History: F/u on acute pancreatitis, elevated LFTs. Pain is controlled Review of Systems abd pain no fever Physical Exam Vital Signs: Vital Signs: Last Vital Signs Temp 97.5 F 02/20/21 08:00 Pulse 99 02/20/21 08:00 Resp 18 02/20/21 08:00 BP 154/90 H 02/20/21 08:00 Pulse Ox 95 02/20/21 08:00 Body Mass Index 28.2 Const: Other: General: AO X 3, no acute distress Resp: CTA bilateral CVS: S1,S2,RRR GI: +epgi tenderness, no guarding, no rebound Skin: No rash Neuro: motor grossly intact Psych: appropriate affect Objective Data Active Medications Hydromorphone HCl (Hydromorphone Hcl 1 Mg/Ml Syringe) 1 mg IVPUSH Q3H PRN; Protocol PRN Reason: Pain, Severe (Pain Scale 7-10) Last Admin: 02/20/21 08:14 Dose: 1 mg Documented by: PAU Dextrose/Sodium Chloride (D51/2ns) 1,000 mls @ 200 mls/hr IVCONT .Q5H [facility] Last Admin: 02/20/21 09:01 Dose: Not Given Documented by: PAU Non-Admin Reason: IV Running Piperacillin Sod/Tazobactam (Sod 3.375 gm/ Sodium Chloride) 50 mls @ 100 mls/hr IV Q6H [facility] Melatonin (Melatonin 3 Mg Tablet) 6 mg PO BEDTIME PRN PRN Reason: Insomnia Ondansetron HCl (Ondansetron Hcl 4 Mg/2 Ml Vial) 4 mg IVPUSH Q8H PRN PRN Reason: Nausea and Vomiting Oxycodone HCl (Oxycodone Hcl Immed Release 5 Mg Tablet) 10 mg PO Q4H PRN PRN Reason: Pain, Moderate (Pain Scale 4-6 Last Admin: 02/19/21 17:29 Dose: 10 mg Documented by: ALEJANDRINA Pharmacy Consult (Consult Rx Perform Med Rec) 1 each MISCELLANE ONCE PRN PRN Reason: Consult order Sodium Chloride (0.9 % Sodium Chloride Flush 3 Ml Syringe) 3 ml IVFLUSH QSHIFT [facility] Last Admin: 02/20/21 08:13 Dose: 3 ml Documented by: PAU Labs CBC & Chem 7: 02/20/21 06:33 02/20/21 06:33 Labs: Laboratory Results - last 24 hr 02/19/21 02/19/21 02/19/21 05:24 05:24 12:37 WBC 23.7 H MCV MCH MCHC RDW Plt Count MPV Absolute Nucleated RBC Nucleated RBC % (auto) Anion Gap Estim Creat Clear Calc Estimated GFR Random Glucose Calcium Total Bilirubin Direct Bilirubin AST ALT Alkaline Phosphatase Total Protein Albumin Triglycerides 121 Lipase Urine Color Urine Appearance Urine pH Ur Specific [place] Urine Protein Urine Glucose (UA) Urine Ketones Urine Blood Urine Nitrite Ur Leukocyte Esterase Urine Opiates Screen POSITIVE H Urine Fentanyl Screen Not Detected Ur Barbiturates Screen Not Detected Ur Phencyclidine Scrn Not Detected Ur Amphetamines Screen Not Detected U Benzodiazepines Scrn Not Detected Urine Cocaine Screen Not Detected U Marijuana (THC) Screen POSITIVE H 02/19/21 02/19/21 02/19/21 12:37 15:11 15:11 WBC 18.8 H MCV 83.2 MCH 27.2 MCHC 32.7 RDW 15.2 Plt Count 393 MPV 10.9 Absolute Nucleated RBC 0.000 Nucleated RBC % (auto) 0.0 Anion Gap Estim Creat Clear Calc Estimated GFR Random Glucose Calcium Total Bilirubin Direct Bilirubin AST ALT Alkaline Phosphatase Total Protein Albumin Triglycerides Lipase 3002 H Urine Color DK YELLOW Urine Appearance CLEAR Urine pH 5.5 Ur Specific [place] 1.015 Urine Protein TRACE Urine Glucose (UA) NEG Urine Ketones 15 Urine Blood NEG Urine Nitrite NEG Ur Leukocyte Esterase NEG Urine Opiates Screen Urine Fentanyl Screen Ur Barbiturates Screen Ur Phencyclidine Scrn Ur Amphetamines Screen U Benzodiazepines Scrn Urine Cocaine Screen U Marijuana (THC) Screen 02/20/21 02/20/21 06:33 06:33 WBC 21.3 H MCV 84.3 MCH 27.1 MCHC 32.2 RDW 16.0 Plt Count 407 H MPV 11.4 Absolute Nucleated RBC 0.000 Nucleated RBC % (auto) 0.0 Anion Gap 11 L Estim Creat Clear Calc 146.0 Estimated GFR > 60 Random Glucose 138 H Calcium 7.7 L D Total Bilirubin 2.3 H Direct Bilirubin 1.1 H AST 18 D ALT 94 H Alkaline Phosphatase 140 H D Total Protein 5.3 L D Albumin 3.4 L D Triglycerides Lipase > 1101 H Urine Color Urine Appearance Urine pH Ur Specific [place] Urine Protein Urine Glucose (UA) Urine Ketones Urine Blood Urine Nitrite Ur Leukocyte Esterase Urine Opiates Screen Urine Fentanyl Screen Ur Barbiturates Screen Ur Phencyclidine Scrn Ur Amphetamines Screen U Benzodiazepines Scrn Urine Cocaine Screen U Marijuana (THC) Screen Microbiology Microbiology Results: Microbiology 02/19/21 07:21 Blood Culture - Preliminary Blood - Venous No growth after 24 hours. 02/19/21 07:21 Blood Culture - Preliminary Blood - Venous No growth after 24 hours. Assessment and Plan (1) Pancreatitis, acute: Status: Acute Assessment and Plan: 30 year old male with acute severe pancraitis, gallstone, elevated LFTS. Suspect gallstone pancreatitis or possible drug induced, ie gabapentin Plan: Acute pancreatitis, probably related to [place] Elevated LFTS--coming down WBC is up, no fever -Start liquid diet -continue IVF -continue dialudid -Empiric Zosyn for increasing WBC Out of bed, ambulate Quality Stroke Does the patient have a stroke diagnosis?: No VTE Prior VTE?: No VTE Risk Level:: Medical - low VTE Device Contraindication: Treatment Not Indicated VTE Drug Contraindication: Treatment Not Indicated
[2021-02-20] MEDS: Piperacillin Sodium/Tazobactam 3.375 GM in 0.9 % Sodium Chloride 50 ML IV ×3 (10:38→23:29)
[2021-02-20] MEDS: Magnesium Hydrox/Alum Hydrox 30 ML ORAL.SUSP 15 ML PO (11:10)
--- NOTE | 2021-02-20 11:33 | PM.GICN ---
History of Present Illness Data of Consult Service Date: 02/20/21 Requesting physician: Beto Ga Primary Care Provider: Unknown Physician HPI Reason for consult: pancreatitis 30 yr old m w/ hx of prior substance use who I am seeing for assessment of pancreatitis. He had 3 d hx of worsening 10/10 epigastric pain, initially intermittent but then more persistent with restlessness associated with nausea and non bloody emesis. Denies fevers or chills. He never had this pain before. No new meds or OTC meds, on gabapentin chronically. Denies alcohol use. Initial Imaging with CT and US revealed pancreatitis, with galltones and GB thickening and labs with marked lipase and elevated LFT with Bili 6. He then had an MRCP with mild dilated CBD and gallstones but no CBD stone. LFT also trending down. Patient now on clear liquid diet. Review of Systems Review of Systems: abd pain no fever Yes all other systems are reviewed and are negative Constitutional: Constitutional: Denies chills and Denies fever(s) Cardiovascular: Cardiovascular: Denies chest pain, Denies dyspnea and Denies dyspnea on exertion Respiratory: Respiratory: Denies cough, Denies dyspnea and Denies dyspnea on exertion Gastrointestinal: Gastrointestinal: Denies hematochezia and Denies change in bowel habits Genitourinary: Genitourinary: Denies hematuria and Denies difficulty urinating Musculoskeletal: Musculoskeletal: Denies back pain and Denies limited range of motion Neurologic: Denies focal weakness and Denies convulsions Psychiatric: Psychiatric: Denies depression and Denies mood swings PMFSH Past Medical History Medical History HTN (hypertension) Social History Social History Household Members: Family Housing: Apartment Do you presently have visiting nurse or other home services: No Patient Tobacco Use Status: Never used Tobacco Use of substances other than those prescribed or required for medical reasons: No Substance Use Type: Former Substance User Currently Displaying Signs/Symptoms of Drug Intoxication Withdrawal: No Have you been hit, kicked, punched, or otherwise hurt by someone within the past year? If so, by whom?: No Do you feel safe in your current relationship?: Yes Is there a partner from a previous relationship who is making you feel unsafe now?: No Are you made to feel afraid or neglected: No Advance Directives: No Advance Directives Information Provided: Yes Advance Directives on File: No Do you have thoughts of harming others: None Do you have a plan to hurt others: No Plan Recently lost weight without trying: No Nutrition Risks: No Nutritional Risk Poor oral hygiene: No service: No Current occupational status: employed Meds Allergies Allergy/AdvReac Type Severity Reaction Status Date / Time No Known Allergies Allergy Verified 02/19/21 05:10 [No Known Allergies*] Active Medications: Current Medications Al Hydroxide/Mg Hydroxide (Magnesium Hydrox/Alum Hydrox 30 Ml Oral.Susp) 15 ml PO Q6H PRN PRN Reason: Dyspepsia Last Admin: 02/20/21 11:10 Dose: 15 ml Documented by: Hydromorphone HCl (Hydromorphone Hcl 1 Mg/Ml Syringe) 1 mg IVPUSH Q3H PRN; Protocol PRN Reason: Pain, Severe (Pain Scale 7-10) Last Admin: 02/20/21 11:09 Dose: 1 mg Documented by: Dextrose/Sodium Chloride (D51/2ns) 1,000 mls @ 200 mls/hr IVCONT .Q5H [facility] Last Admin: 02/20/21 09:01 Dose: Not Given Documented by: Piperacillin Sod/Tazobactam (Sod 3.375 gm/ Sodium Chloride) 50 mls @ 100 mls/hr IV Q6H [facility] Last Infusion: 02/20/21 11:13 Dose: Infused Documented by: Melatonin (Melatonin 3 Mg Tablet) 6 mg PO BEDTIME PRN PRN Reason: Insomnia Ondansetron HCl (Ondansetron Hcl 4 Mg/2 Ml Vial) 4 mg IVPUSH Q8H PRN PRN Reason: Nausea and Vomiting Oxycodone HCl (Oxycodone Hcl Immed Release 5 Mg Tablet) 10 mg PO Q4H PRN PRN Reason: Pain, Moderate (Pain Scale 4-6 Last Admin: 02/19/21 17:29 Dose: 10 mg Documented by: Pharmacy Consult (Consult Rx Perform Med Rec) 1 each MISCELLANE ONCE PRN PRN Reason: Consult order Sodium Chloride (0.9 % Sodium Chloride Flush 3 Ml Syringe) [facility] Last Admin: 02/20/21 08:13 Dose: 3 ml Documented by: Home Medications Medication Instructions Recorded Confirmed Last Taken Type bismuth subsalicylate 525 mg/15 mL 525 mg PO Q30M PRN 02/19/21 02/19/21 02/19/21 History oral suspension ibuprofen 200 mg tablet 400 mg PO Q6H PRN 02/19/21 02/19/21 Unknown History Physical Exam Vital Signs: Vital Signs: Last Vital Signs Temp 97.5 F 02/20/21 08:00 Pulse 99 02/20/21 08:00 Resp 18 02/20/21 08:00 BP 154/90 H 02/20/21 08:00 Pulse Ox 95 02/20/21 08:00 Body Mass Index 28.2 Const: Other: General: AO X 3, no acute distress Resp: CTA bilateral CVS: S1,S2,RRR GI: +epgi tenderness, no guarding, no rebound Skin: No rash Neuro: motor grossly intact Psych: appropriate affect General: comfortable and no acute distress Orientation/consciousness: patient oriented x3 HENMT: Head: Yes normal to inspection, Yes normocephalic and Yes atraumatic Ears: external ears normal General nose exam: Normal external nose present Face and sinus: Yes normal facial exam Mouth: Normal oral and palatal mucosa present Throat: Yes posterior oropharynx normal Eyes: General: appearance normal, both eyes and all related structures Alignment and Position: position normal Periorbital: periorbital findings normal Eyelids: Yes eyelids normal Conjunctivae: conjunctivae normal Sclerae: scleral abnormal (Icteric) Pupils: Equal, round and reactive pupils present Neck: Neck: Yes normal visual inspection, Yes no lymphadenopathy, Yes trachea midline and Yes supple Chest: Chest palpation & inspection: normal inspection of the chest and normal palpation of entire chest wall Resp: Effort & Inspection: normal respiratory effort and able to speak in complete sentences Auscultation: clear to auscultation bilaterally Cardio: Rate: regular rate Rhythm: regular rhythm Heart sounds: S1 normal heart sound present, S2 normal heart sound present and no murmurs GI: Other: Tender on the epigastric area, no guarding rebound, not distended Inspection: Yes normal to inspection Palpation (GI): Soft to palpation, Tenderness to palpation present (GI) in the epigastrum (Mild), in the LLQ (Mild), in the RLQ (Moderate), in the LUQ (Mild) and in the RUQ (Moderate), no guarding and not rigid Auscultation: normal bowel sounds : General: Yes no CVA tenderness Back/Spine/Pelvis: Back: no CVA tenderness Skin: Other: Pale, jaundice General skin exam: jaundice Neuro: General: patient oriented x3 Cranial nerves: Yes CN's II-XII intact bilaterally and Yes Equal, round and reactive pupils present Cognition (Neuro): normal cognition Motor exam (neuro): 5/5 motor strength present throughout Extrem: General: Yes normal to inspection Psych: Appearance: grossly normal Speech and movement: Normal speech and movement present Affect: normal affect Attitude: cooperative Thought process: Normal thought process present Thought content: Normal thought content present Results Labs CBC & Chem 7: 02/20/21 06:33 02/20/21 06:33 Labs: Short CBC 02/19/21 02/20/21 Range/Units 15:11 06:33 WBC 18.8 H 21.3 H (4.8-10.8) X10*3/uL Hgb 16.2 17.1 (14.0-18.0) g/dl Hct 49.6 53.1 H (42.0-52.0) % Plt Count 393 407 H (160-400) X10*3/uL BMP 02/20/21 06:33 Sodium 137 Potassium 4.1 Chloride 104 Carbon Dioxide 26 BUN 8 L Creatinine 0.75 Calcium 7.7 L D Liver Function 02/20/21 Range/Units 06:33 Total Bilirubin 2.3 H (0.0-1.0) mg/dL Direct Bilirubin 1.1 H (0.0-0.5) mg/dL AST 18 D (5-37) U/L ALT 94 H (0-40) U/L Alkaline Phosphatase 140 H D (39-117) U/L Albumin 3.4 L D (3.5-5.0) g/dL Urine 02/19/21 Range/Units 12:37 Urine Color DK YELLOW Urine Appearance CLEAR Urine pH 5.5 (5.0-8.0) Ur Specific [place] 1.015 (1.005-1.025) Urine Protein TRACE (NEG-TRACE) MG/DL Urine Glucose (UA) NEG (NEG) MG/DL Microbiology Microbiology Results: Microbiology 02/19/21 07:21 Blood - Venous Blood Culture - Preliminary No growth after 24 hours. 02/19/21 07:21 Blood - Venous Blood Culture - Preliminary No growth after 24 hours. Assessment and Plan (1) Acute gallstone pancreatitis: Status: Acute 1/ Acute gallstone associated pancreatitis, seems to have passed the stone as evidenced by down trending LFT and improving sx. Unlikely to have pancreatitis from gabapentin PLAN: 1/ Advance diet as tolerated 2/ Analgesia prn 3/ fluids as doing preferably LR --10ml/kg bolus and maintain 3 ml/kg/hr until on PO diet 4/ f/u with surgery for cholecystectomy, no indication for ERCP right now but if LFT worsen then can reconsider Procedures Date of Service Date of Service: 02/20/21
[2021-02-20] MEDS: oxyCODONE HCl Immed Release 5 MG TABLET 10 MG PO ×2 (13:13→19:27)
[2021-02-20] MEDS: ondansetron HCL 4 MG/2 ML VIAL IVPUSH ×2 (13:13→23:29)
--- NOTE | 2021-02-20 14:38 | PM.PNGS ---
Subjective Subjective Date of Service: 02/20/21 Interval history: Says he has noticed better pain control Does admit that he still has epigastric pain Otherwise had an uneventful night Physical Exam Vital Signs: Vital Signs: Last Vital Signs Temp 97.5 F 02/20/21 11:56 Pulse 97 02/20/21 11:56 Resp 18 02/20/21 11:56 BP 158/89 H 02/20/21 11:56 Pulse Ox 94 02/20/21 11:56 Body Mass Index 28.2 Const: Other: Chemistry 02/19/21 02/20/21 05:24 06:33 Sodium 142 137 Potassium 4.2 4.1 Carbon Dioxide 26 26 BUN 8 L 8 L Creatinine 1.04 0.75 Calcium 9.5 7.7 L D Hematology 02/19/21 02/19/21 02/20/21 05:24 15:11 06:33 WBC 23.7 H 18.8 H 21.3 H Hgb 17.2 16.2 17.1 Plt Count 459 H 393 407 H Urinalysis 02/19/21 12:37 Urine Color DK YELLOW Urine Appearance CLEAR Urine pH 5.5 Ur Specific [place]it y 1.015 Urine Protein TRACE Urine Glucose (UA) NEG Urine Ketones 15 Urine Blood NEG Urine Nitrite NEG Ur Leukocyte Chika ase NEG General: comfortable and no acute distress Eyes: Sclerae: sclerae normal Resp: Effort & Inspection: normal respiratory effort Cardio: Rate: regular rate GI: Other: Tender mostly epigastric area, no guarding rebound, not distended Palpation (GI): Soft to palpation Procedures Date of Service Date of Service: 02/20/21 Progress Note: A&P Assessment and plan (1) Pancreatitis, acute: Status: Acute Assessment and Plan: Likely gallstone pancreatitis Bilirubin much improved lipase also has trended down significantly He may have passed a stone through the common bile duct WBC up but clinically improving Abdomen remained soft Continue current treatment - but clear liquids only, pain management, IV hydration Kidney function preserved Explained plan to patient as well as his mother at bedside Discussed with GI as well Fall Risk Details Current Medications: Current Medications Al Hydroxide/Mg Hydroxide (Magnesium Hydrox/Alum Hydrox 30 Ml Oral.Susp) 15 ml PO Q6H PRN PRN Reason: Dyspepsia Last Admin: 02/20/21 11:10 Dose: 15 ml Documented by: Hydromorphone HCl (Hydromorphone Hcl 1 Mg/Ml Syringe) 1 mg IVPUSH Q3H PRN; Protocol PRN Reason: Pain, Severe (Pain Scale 7-10) Last Admin: 02/20/21 14:22 Dose: 1 mg Documented by: Dextrose/Sodium Chloride (D51/2ns) 1,000 mls @ 200 mls/hr IVCONT .Q5H [facility] Last Admin: 02/20/21 13:13 Dose: 200 mls/hr Documented by: Piperacillin Sod/Tazobactam (Sod 3.375 gm/ Sodium Chloride) 50 mls @ 100 mls/hr IV Q6H [facility] Last Infusion: 02/20/21 11:13 Dose: Infused Documented by: Melatonin (Melatonin 3 Mg Tablet) 6 mg PO BEDTIME PRN PRN Reason: Insomnia Ondansetron HCl (Ondansetron Hcl 4 Mg/2 Ml Vial) 4 mg IVPUSH Q8H PRN PRN Reason: Nausea and Vomiting Last Admin: 02/20/21 13:13 Dose: 4 mg Documented by: Oxycodone HCl (Oxycodone Hcl Immed Release 5 Mg Tablet) 10 mg PO Q4H PRN PRN Reason: Pain, Moderate (Pain Scale 4-6 Last Admin: 02/20/21 13:13 Dose: 10 mg Documented by: Pharmacy Consult (Consult Rx Perform Med Rec) 1 each MISCELLANE ONCE PRN PRN Reason: Consult order Sodium Chloride (0.9 % Sodium Chloride Flush 3 Ml Syringe) 3 ml IVFLUSH QSHIFT [facility] Last Admin: 02/20/21 14:23 Dose: Not Given Documented by: Time Spent With Patient Time: Total time spent is greater than 50% in coordination of care (as documented) at patient's floor/unit and/or counseling patient: Time with patient: 15 - 24 minutes Quality Stroke Does the patient have a stroke diagnosis?: No VTE Prior VTE?: No VTE Risk Level:: Medical - low VTE Device Contraindication: Treatment Not Indicated VTE Drug Contraindication: Treatment Not Indicated
[2021-02-20] MEDS: Baclofen 10 MG TABLET PO (17:01)
[2021-02-21] MEDS: HYDROmorphone HCl 1 MG/ML SYRINGE IVPUSH ×7 (02:25→23:48)
[2021-02-21] MEDS: oxyCODONE HCl Immed Release 5 MG TABLET 10 MG PO ×4 (03:46→22:02)
[2021-02-21] MEDS: Dextrose 5 % and 0.45 % NaCl 1,000 ML 200 ML IVCONT ×3 (03:47→18:09)
[2021-02-21 04:00] VITALS: BP 149/83; PULSE 93; RESP 18; TEMP 36.7; O2SAT 95
[2021-02-21] MEDS: Piperacillin Sodium/Tazobactam 3.375 GM in 0.9 % Sodium Chloride 50 ML IV ×4 (05:48→23:47)
[2021-02-21 07:14] VITALS: BP 148/81; PULSE 99; RESP 16; TEMP 36.7; O2SAT 95
--- NOTE | 2021-02-21 08:26 | P.PNGS_ITS ---
Subjective Subjective Date of Service: 02/21/21 Interval history: Still having epigastric pain but states that this is definitely improving No events reported States he is still needs IV pain meds frequently Physical Exam Vital Signs: Vital Signs: Last Vital Signs Temp 98.1 F 02/21/21 07:14 Pulse 99 02/21/21 07:14 Resp 16 02/21/21 07:14 BP 148/81 H 02/21/21 07:14 Pulse Ox 95 02/21/21 07:14 Body Mass Index 28.2 Const: Other: Chemistry 02/19/21 02/20/21 05:24 06:33 Sodium 142 137 Potassium 4.2 4.1 Carbon Dioxide 26 26 BUN 8 L 8 L Creatinine 1.04 0.75 Calcium 9.5 7.7 L D Hematology 02/19/21 02/19/21 02/20/21 05:24 15:11 06:33 WBC 23.7 H 18.8 H 21.3 H Hgb 17.2 16.2 17.1 Plt Count 459 H 393 407 H Urinalysis 02/19/21 12:37 Urine Color DK YELLOW Urine Appearance CLEAR Urine pH 5.5 Ur Specific Gravit y 1.015 Urine Protein TRACE Urine Glucose (UA) NEG Urine Ketones 15 Urine Blood NEG Urine Nitrite NEG Ur Leukocyte Chika ase NEG General: no acute distress Resp: Effort & Inspection: normal respiratory effort Cardio: Rhythm: regular rhythm GI: Other: Soft, minimal distention, tender in the epigastric area mostly Procedures Date of Service Date of Service: 02/21/21 Progress Note: A&P Assessment and plan (1) Pancreatitis, acute: Status: Acute Assessment and Plan: Slowly improving Hemodynamically stable Keep on clear liquids Encouraged to get out of bed and ambulate Labs pending Patient denies recent alcohol intake - etiology of pancreatitis likely gallstones Will follow closely Fall Risk Details Current Medications: Current Medications Al Hydroxide/Mg Hydroxide (Magnesium Hydrox/Alum Hydrox 30 Ml Oral.Susp) 15 ml PO Q6H PRN PRN Reason: Dyspepsia Last Admin: 02/20/21 11:10 Dose: 15 ml Documented by: Hydromorphone HCl (Hydromorphone Hcl 1 Mg/Ml Syringe) 1 mg IVPUSH Q3H PRN; Protocol PRN Reason: Pain, Severe (Pain Scale 7-10) Last Admin: 02/21/21 05:49 Dose: 1 mg Documented by: Dextrose/Sodium Chloride (D51/2ns) 1,000 mls @ 200 mls/hr IVCONT .Q5H [facility] Last Admin: 02/21/21 03:47 Dose: 200 mls/hr Documented by: Piperacillin Sod/Tazobactam (Sod 3.375 gm/ Sodium Chloride) 50 mls @ 100 mls/hr IV Q6H [facility] Last Admin: 02/21/21 05:48 Dose: 100 mls/hr Documented by: Melatonin (Melatonin 3 Mg Tablet) 6 mg PO BEDTIME PRN PRN Reason: Insomnia Ondansetron HCl (Ondansetron Hcl 4 Mg/2 Ml Vial) 4 mg IVPUSH Q8H PRN PRN Reason: Nausea and Vomiting Last Admin: 02/20/21 23:29 Dose: 4 mg Documented by: Oxycodone HCl (Oxycodone Hcl Immed Release 5 Mg Tablet) 10 mg PO Q4H PRN PRN Reason: Pain, Moderate (Pain Scale 4-6 Last Admin: 02/21/21 03:46 Dose: 10 mg Documented by: Pharmacy Consult (Consult Rx Perform Med Rec) 1 each MISCELLANE ONCE PRN PRN Reason: Consult order Sodium Chloride (0.9 % Sodium Chloride Flush 3 Ml Syringe) 3 ml IVFLUSH QSHIFT [facility] Last Admin: 02/21/21 00:22 Dose: Not Given Documented by: Time Spent With Patient Time: Total time spent is greater than 50% in coordination of care (as documented) at patient's floor/unit and/or counseling patient: Time with patient: 15 - 24 minutes Quality Stroke Does the patient have a stroke diagnosis?: No VTE Prior VTE?: No VTE Risk Level:: Medical - low VTE Device Contraindication: Treatment Not Indicated VTE Drug Contraindication: Treatment Not Indicated
[2021-02-21 09:37] LABS: Hematocrit 44.3 % (42.0-52.0); Hemoglobin 14.1 g/dl (14.0-18.0); Mean Corpuscular HGB Conc 31.8 g/dl (31.0-36.0); Mean Corpuscular Hemoglobin 26.9 pg (27.0-33.0); Mean Corpuscular Volume 84.4 fL (80.0-98.0); Mean Platelet Volume 11.4 fL (9.4-12.4); Platelet Count 304 X10*3/uL (160-400); Red Blood Count 5.25 X10*6/uL (4.60-5.80); Red Cell Distribution Width 14.9 % (11.0-16.0); White Blood Count 16.9 X10*3/uL (4.8-10.8)
[2021-02-21 09:52] LABS: Alanine Aminotransferase 48 U/L (0-40); Albumin Level 2.9 g/dL (3.5-5.0); Alkaline Phosphatase 93 U/L (39-117); Anion Gap 11 (12-20); Aspartate Amino Transferase 14 U/L (5-37); Bilirubin Direct 0.9 mg/dL (0.0-0.5); Bilirubin Total 1.7 mg/dL (0.0-1.0); Blood Urea Nitrogen 6 mg/dL (9-16); Calcium 7.5 mg/dL (8.4-10.2); Carbon Dioxide 27 mmol/L (22-29); Chloride 99 mmol/L (96-108); Creatinine Clr Calc Pharmacy 152.1; Estimated Glomerular Filt Rate > 60; Glucose Random 129 mg/dL (60-115); Lipase 629 U/L (8-78); Potassium 4.1 mmol/L (3.3-5.1); Sodium 133 mmol/L (135-145); Total Protein 4.7 g/dL (6.5-8.0)
[2021-02-21 11:02] VITALS: BP 166/73; PULSE 85; RESP 16; TEMP 36.8; O2SAT 94
--- NOTE | 2021-02-21 11:24 | P.PNIM_ITS ---
Subjective Subjective Date of Service: 02/21/21 Interval History: f/u on acute pancreatitis, getting better, lipase is down, pain is better, tolerating liquid Review of Systems no fever +abd pain Physical Exam Vital Signs: Vital Signs: Last Vital Signs Temp 98.3 F 02/21/21 11:02 Pulse 85 02/21/21 11:02 Resp 16 02/21/21 11:02 BP 166/73 H 02/21/21 11:02 Pulse Ox 94 02/21/21 11:02 Body Mass Index 28.2 Const: Other: General: AO X 3, no acute distress Resp: CTA bilateral CVS: S1,S2,RRR GI: +epgi tenderness, no guarding, no rebound Skin: No rash Neuro: motor grossly intact Psych: appropriate affect Objective Data Active Medications Al Hydroxide/Mg Hydroxide (Magnesium Hydrox/Alum Hydrox 30 Ml Oral.Susp) 15 ml PO Q6H PRN PRN Reason: Dyspepsia Last Admin: 02/20/21 11:10 Dose: 15 ml Documented by: PAU Hydromorphone HCl (Hydromorphone Hcl 1 Mg/Ml Syringe) 1 mg IVPUSH Q3H PRN; Protocol PRN Reason: Pain, Severe (Pain Scale 7-10) Last Admin: 02/21/21 08:44 Dose: 1 mg Documented by: KEZIA Dextrose/Sodium Chloride (D51/2ns) 1,000 mls @ 200 mls/hr IVCONT .Q5H [facility] Last Admin: 02/21/21 03:47 Dose: 200 mls/hr Documented by: HAWA Piperacillin Sod/Tazobactam (Sod 3.375 gm/ Sodium Chloride) 50 mls @ 100 mls/hr IV Q6H [facility] Last Admin: 02/21/21 11:04 Dose: 100 mls/hr Documented by: KEZIA Melatonin (Melatonin 3 Mg Tablet) 6 mg PO BEDTIME PRN PRN Reason: Insomnia Ondansetron HCl (Ondansetron Hcl 4 Mg/2 Ml Vial) 4 mg IVPUSH Q8H PRN PRN Reason: Nausea and Vomiting Last Admin: 02/20/21 23:29 Dose: 4 mg Documented by: HAWA Oxycodone HCl (Oxycodone Hcl Immed Release 5 Mg Tablet) 10 mg PO Q4H PRN PRN Reason: Pain, Moderate (Pain Scale 4-6 Last Admin: 02/21/21 10:36 Dose: 10 mg Documented by: KEZIA Pharmacy Consult (Consult Rx Perform Med Rec) 1 each MISCELLANE ONCE PRN PRN Reason: Consult order Sodium Chloride (0.9 % Sodium Chloride Flush 3 Ml Syringe) 3 ml IVFLUSH QSHIFT [facility] Last Admin: 02/21/21 00:22 Dose: Not Given Documented by: HAWA Non-Admin Reason: IV Running Labs CBC & Chem 7: 02/21/21 08:35 02/21/21 08:35 Labs: Laboratory Results - last 24 hr 02/21/21 02/21/21 08:35 08:35 MCV 84.4 MCH 26.9 L MCHC 31.8 RDW 14.9 Plt Count 304 D MPV 11.4 Absolute Nucleated RBC 0.000 Nucleated RBC % (auto) 0.0 Anion Gap 11 L Estim Creat Clear Calc 152.1 Estimated GFR > 60 Random Glucose 129 H Calcium 7.5 L Total Bilirubin 1.7 H Direct Bilirubin 0.9 H AST 14 ALT 48 H Alkaline Phosphatase 93 D Total Protein 4.7 L Albumin 2.9 L Lipase 629 H Microbiology Microbiology Results: Microbiology 02/19/21 07:21 Blood Culture - Preliminary Blood - Venous No growth after 48 hours. 02/19/21 07:21 Blood Culture - Preliminary Blood - Venous No growth after 48 hours. Assessment and Plan (1) Pancreatitis, acute: Status: Acute Assessment and Plan: 30 year old male with acute severe pancraitis, gallstone, elevated LFTS. Suspect gallstone pancreatitis or possible drug induced, ie gabapentin Plan: Acute pancreatitis, probably related to Gstone Elevated LFTS, lipase --coming down WBC is down, no fever -Start liquid diet, increase to full liquid DC IVF -continue dialudid -Empiric Zosyn for leukocytosis Out of bed, ambulate HTN--Start Norvasc for high BPs Quality Stroke Does the patient have a stroke diagnosis?: No VTE Prior VTE?: No VTE Risk Level:: Medical - low VTE Device Contraindication: Treatment Not Indicated VTE Drug Contraindication: Treatment Not Indicated
[2021-02-21 15:43] VITALS: BP 165/90; PULSE 100; RESP 18; TEMP 36.6; O2SAT 94
[2021-02-21] MEDS: Baclofen 10 MG TABLET PO (16:22)
[2021-02-21 19:31] VITALS: BP 169/94; PULSE 99; RESP 18; TEMP 36.9; O2SAT 96
[2021-02-21] MEDS: ondansetron HCL 4 MG/2 ML VIAL IVPUSH (23:50)
[2021-02-22] VITALS (10 sets, daily range): BP systolic 132–182; BP diastolic 65–92; PULSE 88–103; RESP 17–19; TEMP 36.2–36.9; O2SAT 95–98
[2021-02-22] MEDS: Dextrose 5 % and 0.45 % NaCl 1,000 ML 200 ML IVCONT ×3 (00:26→07:35)
[2021-02-22] MEDS: HYDROmorphone HCl 1 MG/ML SYRINGE IVPUSH ×8 (02:50→23:52)
[2021-02-22] MEDS: oxyCODONE HCl Immed Release 5 MG TABLET 10 MG PO ×4 (04:38→23:07)
[2021-02-22] MEDS: Piperacillin Sodium/Tazobactam 3.375 GM in 0.9 % Sodium Chloride 50 ML IV ×4 (04:38→23:08)
--- NOTE | 2021-02-22 08:18 | PM.PNGS ---
Subjective Subjective Date of Service: 02/22/21 Interval history: States he feels better although still has significant pain He had lot of hiccups yesterday and states that this improved as well Physical Exam Vital Signs: Vital Signs: Last Vital Signs Temp 97.8 F 02/22/21 07:23 Pulse 88 02/22/21 07:23 Resp 18 02/22/21 07:23 BP 146/90 H 02/22/21 07:23 Pulse Ox 95 02/22/21 07:23 Body Mass Index 28.2 Const: General: comfortable and no acute distress Resp: Effort & Inspection: normal respiratory effort Cardio: Rhythm: regular rhythm GI: Other: Soft, still operator helper in the epigastric area no guarding or rebound Procedures Date of Service Date of Service: 02/22/21 Progress Note: A&P Assessment and plan (1) Pancreatitis, acute: Status: Acute Assessment and Plan: Likely from gallstones Improving steadily Tenderness better He however does not feel he is ready to have surgery for cholecystectomy tomorrow He states that he wants to wait for few more days until he feels better Fall Risk Details Current Medications: Current Medications Al Hydroxide/Mg Hydroxide (Magnesium Hydrox/Alum Hydrox 30 Ml Oral.Susp) 15 ml PO Q6H PRN PRN Reason: Dyspepsia Last Admin: 02/20/21 11:10 Dose: 15 ml Documented by: Baclofen (Baclofen 10 Mg Tablet) 10 mg PO TID PRN PRN Reason: Hicups Last Admin: 02/21/21 16:22 Dose: 10 mg Documented by: Hydromorphone HCl (Hydromorphone Hcl 1 Mg/Ml Syringe) 1 mg IVPUSH Q3H PRN; Protocol PRN Reason: Pain, Severe (Pain Scale 7-10) Last Admin: 02/22/21 05:54 Dose: 1 mg Documented by: Dextrose/Sodium Chloride (D51/2ns) 1,000 mls @ 200 mls/hr IVCONT .Q5H [facility] Last Admin: 02/22/21 07:35 Dose: 200 mls/hr Documented by: Piperacillin Sod/Tazobactam (Sod 3.375 gm/ Sodium Chloride) 50 mls @ 100 mls/hr IV Q6H [facility] Last Infusion: 02/22/21 05:59 Dose: Infused Documented by: Melatonin (Melatonin 3 Mg Tablet) 6 mg PO BEDTIME PRN PRN Reason: Insomnia Ondansetron HCl (Ondansetron Hcl 4 Mg/2 Ml Vial) 4 mg IVPUSH Q8H PRN PRN Reason: Nausea and Vomiting Last Admin: 02/21/21 23:50 Dose: 4 mg Documented by: Oxycodone HCl (Oxycodone Hcl Immed Release 5 Mg Tablet) 10 mg PO Q4H PRN PRN Reason: Pain, Moderate (Pain Scale 4-6 Last Admin: 02/22/21 04:38 Dose: 10 mg Documented by: Pharmacy Consult (Consult Rx Perform Med Rec) 1 each MISCELLANE ONCE PRN PRN Reason: Consult order Sodium Chloride (0.9 % Sodium Chloride Flush 3 Ml Syringe) 3 ml IVFLUSH [facility] Last Admin: 02/22/21 07:13 Dose: Not Given Documented by: Time Spent With Patient Time: Total time spent is greater than 50% in coordination of care (as documented) at patient's floor/unit and/or counseling patient: Time with patient: 15 - 24 minutes Quality Stroke Does the patient have a stroke diagnosis?: No VTE Prior VTE?: No VTE Risk Level:: Medical - low VTE Device Contraindication: Treatment Not Indicated VTE Drug Contraindication: Treatment Not Indicated
[2021-02-22 08:21] LABS: Hematocrit 39.5 % (42.0-52.0); Mean Corpuscular HGB Conc 32.9 g/dl (31.0-36.0); Mean Corpuscular Hemoglobin 27.2 pg (27.0-33.0); Mean Corpuscular Volume 82.6 fL (80.0-98.0); Mean Platelet Volume 10.8 fL (9.4-12.4); Platelet Count 292 X10*3/uL (160-400); Red Blood Count 4.78 X10*6/uL (4.60-5.80); Red Cell Distribution Width 14.5 % (11.0-16.0); White Blood Count 12.5 X10*3/uL (4.8-10.8)
[2021-02-22 08:30] LABS: Lipase 141 U/L (8-78)
--- NOTE | 2021-02-22 10:43 | HO.PM.IMPN ---
Subjective Subjective Date of Service: 02/22/21 Interval History: f/u on acute pancreatitis, getting better, lipase is down, pain is better, tolerating present diet Review of Systems no fever +abd pain Physical Exam Vital Signs: Vital Signs: Last Vital Signs Temp 97.8 F 02/22/21 07:23 Pulse 88 02/22/21 07:23 Resp 19 02/22/21 08:52 BP 146/90 H 02/22/21 07:23 Pulse Ox 95 02/22/21 07:23 Body Mass Index 28.2 Const: Other: General: AO X 3, no acute distress Resp: CTA bilateral CVS: S1,S2,RRR GI: +epgi tenderness, no guarding, no rebound Skin: No rash Neuro: motor grossly intact Psych: appropriate affect Objective Data Active Medications Al Hydroxide/Mg Hydroxide (Magnesium Hydrox/Alum Hydrox 30 Ml Oral.Susp) 15 ml PO Q6H PRN PRN Reason: Dyspepsia Last Admin: 02/20/21 11:10 Dose: 15 ml Documented by: PAU Baclofen (Baclofen 10 Mg Tablet) 10 mg PO TID PRN PRN Reason: Hicups Last Admin: 02/21/21 16:22 Dose: 10 mg Documented by: KEZIA Hydromorphone HCl (Hydromorphone Hcl 1 Mg/Ml Syringe) 1 mg IVPUSH Q3H PRN; Protocol PRN Reason: Pain, Severe (Pain Scale 7-10) Last Admin: 02/22/21 08:52 Dose: 1 mg Documented by: COTEMA Dextrose/Sodium Chloride (D51/2ns) 1,000 mls @ 200 mls/hr IVCONT .Q5H [facility] Last Admin: 02/22/21 07:35 Dose: 200 mls/hr Documented by: COTEMA Piperacillin Sod/Tazobactam (Sod 3.375 gm/ Sodium Chloride) 50 mls @ 100 mls/hr IV Q6H [facility] Last Infusion: 02/22/21 05:59 Dose: 0 mls/hr Documented by: ROSE MARY Melatonin (Melatonin 3 Mg Tablet) 6 mg PO BEDTIME PRN PRN Reason: Insomnia Ondansetron HCl (Ondansetron Hcl 4 Mg/2 Ml Vial) 4 mg IVPUSH Q8H PRN PRN Reason: Nausea and Vomiting Last Admin: 02/21/21 23:50 Dose: 4 mg Documented by: ROSE MARY Oxycodone HCl (Oxycodone Hcl Immed Release 5 Mg Tablet) 10 mg PO Q4H PRN PRN Reason: Pain, Moderate (Pain Scale 4-6 Last Admin: 02/22/21 04:38 Dose: 10 mg Documented by: ROSE MARY Pharmacy Consult (Consult Rx Perform Med Rec) 1 each MISCELLANE ONCE PRN PRN Reason: Consult order Sodium Chloride (0.9 % Sodium Chloride Flush 3 Ml Syringe) [facility] Last Admin: 02/22/21 07:13 Dose: Not Given Documented by: JAZMIN Non-Admin Reason: IV Running Labs CBC & Chem 7: 02/22/21 08:05 02/21/21 08:35 Labs: Laboratory Results - last 24 hr 02/22/21 02/22/21 08:05 08:05 MCV 82.6 MCH 27.2 MCHC 32.9 RDW 14.5 Plt Count 292 MPV 10.8 Absolute Nucleated RBC 0.000 Nucleated RBC % (auto) 0.0 Lipase 141 H Microbiology Microbiology Results: Microbiology 02/19/21 07:21 Blood Culture - Preliminary Blood - Venous No growth after 48 hours. 02/19/21 07:21 Blood Culture - Preliminary Blood - Venous No growth after 48 hours. Assessment and Plan (1) Acute gallstone pancreatitis: Status: Acute Assessment and Plan: 30 year old male with acute severe pancraitis, gallstone, elevated LFTS. Suspect gallstone pancreatitis or possible drug induced, ie gabapentin Plan: Acute pancreatitis, probably related to [place], Elevated LFTS, lipase --continue to trend down WBC is down, no fever -Advance diet -continue dialudid -Empiric Zosyn for leukocytosis Out of bed, ambulate -Surgery to arrange for Cholecystectomy as soon as tomorrow HTN--Start Norvasc for high BPs Hicups--Baclofen PRN Quality Stroke Does the patient have a stroke diagnosis?: No VTE Prior VTE?: No VTE Risk Level:: Medical - low VTE Device Contraindication: Treatment Not Indicated VTE Drug Contraindication: Treatment Not Indicated
[2021-02-22] MEDS: Baclofen 10 MG TABLET PO (11:05)
--- NOTE | 2021-02-22 14:02 | MHC.CM.PN ---
PATIENT STILL EXPERIENCING PAIN. PLAN IS O.R. FRIDAY.
[2021-02-22] MEDS: Lactated Ringers 1,000 ML 125 ML IVCONT ×2 (14:18→23:09)
[2021-02-22] MEDS: oxyCODONE HCl Immed Release 5 MG TABLET PO (19:58)
[2021-02-22] MEDS: ondansetron HCL 4 MG/2 ML VIAL IVPUSH (23:18)
[2021-02-23] VITALS (9 sets, daily range): BP systolic 133–188; BP diastolic 73–100; PULSE 80–103; RESP 16–19; TEMP 36.2–37.2; O2SAT 93–99
[2021-02-23] MEDS: HYDROmorphone HCl 1 MG/ML SYRINGE IVPUSH ×8 (02:48→23:14)
[2021-02-23] MEDS: Baclofen 10 MG TABLET PO (04:48)
[2021-02-23] MEDS: oxyCODONE HCl Immed Release 5 MG TABLET 10 MG PO ×4 (04:48→21:35)
[2021-02-23] MEDS: Piperacillin Sodium/Tazobactam 3.375 GM in 0.9 % Sodium Chloride 50 ML IV ×4 (04:48→23:14)
[2021-02-23 06:00] LABS: Alanine Aminotransferase 33 U/L (0-40); Alkaline Phosphatase 82 U/L (39-117); Aspartate Amino Transferase 14 U/L (5-37); Bilirubin Direct 0.7 mg/dL (0.0-0.5); Bilirubin Total 1.3 mg/dL (0.0-1.0); Lipase 54 U/L (8-78)
[2021-02-23] MEDS: Lactated Ringers 1,000 ML 125 ML IVCONT ×3 (06:28→18:07)
[2021-02-23] MEDS: oxyCODONE HCl Immed Release 5 MG TABLET PO (08:08)
[2021-02-23] MEDS: iohexoL 350 MG/ML 100 ML INFUS..BTL IV (08:45)
--- NOTE | 2021-02-23 09:41 | P.PNIM_ITS ---
Subjective Subjective Date of Service: 02/23/21 Interval History: f/u on acute pancreatitis, Lipase and LFTs now normal but still with persistent pain and repeat CT today shows significant Galblader edema edema Review of Systems no fever +abd pain Physical Exam Vital Signs: Vital Signs: Last Vital Signs Temp 98 F 02/23/21 08:00 Pulse 96 02/23/21 08:00 Resp 16 02/23/21 08:00 BP 163/90 H 02/23/21 08:00 Pulse Ox 96 02/23/21 08:00 Body Mass Index 28.2 Const: Other: General: AO X 3, no acute distress Resp: CTA bilateral CVS: S1,S2,RRR GI: mild to moderate tenderness Skin: No rash Neuro: motor grossly intact Psych: appropriate affect Objective Data Active Medications Al Hydroxide/Mg Hydroxide (Magnesium Hydrox/Alum Hydrox 30 Ml Oral.Susp) 15 ml PO Q6H PRN PRN Reason: Dyspepsia Last Admin: 02/20/21 11:10 Dose: 15 ml Documented by: PAU Baclofen (Baclofen 10 Mg Tablet) 10 mg PO TID PRN PRN Reason: Hicups Last Admin: 02/23/21 04:48 Dose: 10 mg Documented by: ROSE MARY Hydromorphone HCl (Hydromorphone Hcl 1 Mg/Ml Syringe) 1 mg IVPUSH Q3H PRN; Protocol PRN Reason: Pain, Severe (Pain Scale 7-10) Last Admin: 02/23/21 06:24 Dose: 1 mg Documented by: ROSE MARY Piperacillin Sod/Tazobactam (Sod 3.375 gm/ Sodium Chloride) 50 mls @ 100 mls/hr IV Q6H [facility] Last Infusion: 02/23/21 05:42 Dose: 0 mls/hr Documented by: ROSE MARY Lactated Ringer's (Lr) 1,000 mls @ 125 mls/hr IVCONT .Q8H [facility] Last Admin: 02/23/21 08:52 Dose: 125 mls/hr Documented by: COTEMA Melatonin (Melatonin 3 Mg Tablet) 6 mg PO BEDTIME PRN PRN Reason: Insomnia Ondansetron HCl (Ondansetron Hcl 4 Mg/2 Ml Vial) 4 mg IVPUSH Q8H PRN PRN Reason: Nausea and Vomiting Last Admin: 02/22/21 23:18 Dose: 4 mg Documented by: ROSE MARY Oxycodone HCl (Oxycodone Hcl Immed Release 5 Mg Tablet) 10 mg PO Q4H PRN PRN Reason: Pain, Moderate (Pain Scale 4-6 Last Admin: 02/23/21 08:52 Dose: 10 mg Documented by: COTMAX Oxycodone HCl (Oxycodone Hcl Immed Release 5 Mg Tablet) 5 mg PO Q6H PRN PRN Reason: Pain, Severe (Pain Scale 7-10) Last Admin: 02/23/21 08:08 Dose: 5 mg Documented by: JAZMIN Pharmacy Consult (Consult Rx Perform Med Rec) 1 each MISCELLANE ONCE PRN PRN Reason: Consult order Sodium Chloride (0.9 % Sodium Chloride Flush 3 Ml Syringe) [facility] Last Admin: 02/23/21 07:10 Dose: Not Given Documented by: JAZMIN Non-Admin Reason: IV Running Labs CBC & Chem 7: 02/22/21 08:05 02/21/21 08:35 Labs: Laboratory Results - last 24 hr 02/23/21 05:14 Total Bilirubin 1.3 H Direct Bilirubin 0.7 H AST 14 ALT 33 Alkaline Phosphatase 82 Total Protein 5.0 L Albumin 3.0 L Lipase 54 Assessment and Plan (1) Acute gallstone pancreatitis: Status: Acute (2) Pancreatitis, acute: Status: Acute Assessment and Plan: 30 year old male with acute severe pancraitis, gallstone, elevated LFTS. Suspect gallstone pancreatitis or possible drug induced, ie gabapentin Plan: Acute pancreatitis, probably related to [place] repeat CT--Acute interstitial pancreatitis similar to recent CT scan. Small amount of ascites. No organized fluid collection or pancreatic duct dilatation seen.Gallstones. Diffuse gallbladder wall thickening and edema. Normal caliber intrahepatic bile ducts. Minimally dilated common bile duct measuring 8 to 9 mm. No common bile duct stone seen. Elevated LFTS, lipase --now normal but persistent pain WBC is down, no fever -Liquid diet and advance as tolerated -continue dialudid -Empiric Zosyn for leukocytosis Out of bed, ambulate -Surgery to arrange for Cholecystectomy friday HTN--Norvasc Hicups--Baclofen PRN Quality Stroke Does the patient have a stroke diagnosis?: No VTE Prior VTE?: No VTE Risk Level:: Medical - low VTE Device Contraindication: Treatment Not Indicated VTE Drug Contraindication: Treatment Not Indicated
[2021-02-23] MEDS: amLODIPine Besylate 5 MG TABLET PO (10:23)
--- NOTE | 2021-02-23 14:27 | MHC.CM.PN ---
NEW PLAN- PATIENT TO HAVE SURGICAL INTERVENTION Friday02/26/21.
--- NOTE | 2021-02-23 15:26 | P.PNGS_ITS ---
Subjective Subjective Date of Service: 02/26/21 Interval history: Abdominal pain little better he says but states he needs more pain medications at night No nausea or vomiting Physical Exam Vital Signs: Vital Signs: Last Vital Signs Temp 98.9 F 02/23/21 15:18 Pulse 100 02/23/21 15:18 Resp 18 02/23/21 15:18 BP 173/82 H 02/23/21 15:18 Pulse Ox 96 02/23/21 15:18 Body Mass Index 28.2 Const: Other: Chemistry 02/21/21 08:35 Sodium 133 L Potassium 4.1 Carbon Dioxide 27 BUN 6 L Creatinine 0.72 Calcium 7.5 L Hematology 02/21/21 02/22/21 08:35 08:05 WBC 16.9 H 12.5 H Hgb 14.1 13.0 L Plt Count 304 D 292 General: no acute distress Resp: Effort & Inspection: normal respiratory effort Cardio: Rhythm: regular rhythm GI: Other: Soft, tender in the upper abdomen, no guarding rebound Objective Data Active Medications Al Hydroxide/Mg Hydroxide (Magnesium Hydrox/Alum Hydrox 30 Ml Oral.Susp) 15 ml PO Q6H PRN PRN Reason: Dyspepsia Last Admin: 02/20/21 11:10 Dose: 15 ml Documented by: PAU Amlodipine Besylate (Amlodipine Besylate 5 Mg Tablet) 5 mg PO DAILY [facility]; Protocol Last Admin: 02/23/21 10:23 Dose: 5 mg Documented by: MORE Baclofen (Baclofen 10 Mg Tablet) 10 mg PO TID PRN PRN Reason: Hicups Last Admin: 02/23/21 04:48 Dose: 10 mg Documented by: ROSE MARY Hydromorphone HCl (Hydromorphone Hcl 1 Mg/Ml Syringe) 1 mg IVPUSH Q3H PRN; Protocol PRN Reason: Pain, Severe (Pain Scale 7-10) Last Admin: 02/23/21 13:25 Dose: 1 mg Documented by: SILVANO Piperacillin Sod/Tazobactam (Sod 3.375 gm/ Sodium Chloride) 50 mls @ 100 mls/hr IV Q6H [facility] Last Infusion: 02/23/21 11:26 Dose: 0 mls/hr Documented by: SILVANO Lactated Ringer's (Lr) 1,000 mls @ 125 mls/hr IVCONT .Q8H [facility] Last Admin: 02/23/21 13:20 Dose: Not Given Documented by: JAZMIN Non-Admin Reason: IV Running Cefotetan Disodium 2 gm/ (Sodium Chloride) 50 mls @ 100 mls/hr IV PREOP ONE Stop: 02/26/21 15:14 Melatonin (Melatonin 3 Mg Tablet) 6 mg PO BEDTIME PRN PRN Reason: Insomnia Ondansetron HCl (Ondansetron Hcl 4 Mg/2 Ml Vial) 4 mg IVPUSH Q8H PRN PRN Reason: Nausea and Vomiting Last Admin: 02/22/21 23:18 Dose: 4 mg Documented by: ROSE MARY Oxycodone HCl (Oxycodone Hcl Immed Release 5 Mg Tablet) 10 mg PO Q4H PRN PRN Reason: Pain, Moderate (Pain Scale 4-6 Last Admin: 02/23/21 15:08 Dose: 10 mg Documented by: JAZMIN Oxycodone HCl (Oxycodone Hcl Immed Release 5 Mg Tablet) 5 mg PO Q6H PRN PRN Reason: Pain, Severe (Pain Scale 7-10) Last Admin: 02/23/21 08:08 Dose: 5 mg Documented by: JAZMIN Pharmacy Consult (Consult Rx Perform Med Rec) 1 each MISCELLANE ONCE PRN PRN Reason: Consult order Sodium Chloride (0.9 % Sodium Chloride Flush 3 Ml Syringe) 3 ml IVFLUSH QSHIFT [facility] Last Admin: 02/23/21 14:54 Dose: Not Given Documented by: JAZMIN Non-Admin Reason: IV Running Labs CBC & Chem 7: 02/22/21 08:05 02/21/21 08:35 Labs: Laboratory Results - last 24 hr 02/23/21 05:14 Total Bilirubin 1.3 H Direct Bilirubin 0.7 H AST 14 ALT 33 Alkaline Phosphatase 82 Total Protein 5.0 L Albumin 3.0 L Lipase [address] scan - abdomen: Radiologist's impression: Impressions Abdomen/Pelvis CT 02/23/21 07:00 IMPRESSION: Acute interstitial pancreatitis. The pancreas enhances normally. There is interval increase in ascites and fluid surrounding the pancreas. There is interval increase in bilateral pleural effusions and adjacent lower lobe atelectasis or consolidation. Procedures Date of Service Date of Service: 02/26/21 Progress Note: A&P Assessment and plan (1) Pancreatitis, acute: Status: Acute Assessment and Plan: CT scan repeated today - persistent edema, fluid, inflammatory changes surrounding the pancreas, with normal enhancement This is despite improvement in LFT' and lipase I have told him that we in view of the CAT scan findings, I do not feel that it is the right time to do cholecystectomy I may have to repeat this CAT scan prior to scheduling for him for cholecystectomy down the line although he has been temporarily scheduled for this Friday Severity of pancreatitis unusual for gallstones as etiology, but the patient denies recent intake of alcohol He does have a history of polysubstance abuse in the past Diet as tolerated Will decrease interval of p.r.n. Dilaudid to every 2 hours Encouraged patient to get out of bed and ambulate I have discussed the above with patient Fall Risk Details Current Medications: Current Medications Al Hydroxide/Mg Hydroxide (Magnesium Hydrox/Alum Hydrox 30 Ml Oral.Susp) 15 ml PO Q6H PRN PRN Reason: Dyspepsia Last Admin: 02/20/21 11:10 Dose: 15 ml Documented by: Amlodipine Besylate (Amlodipine Besylate 5 Mg Tablet) 5 mg PO DAILY [facility]; Protocol Last Admin: 02/23/21 10:23 Dose: 5 mg Documented by: Baclofen (Baclofen 10 Mg Tablet) 10 mg PO TID PRN PRN Reason: Hicups Last Admin: 02/23/21 04:48 Dose: 10 mg Documented by: Hydromorphone HCl (Hydromorphone Hcl 1 Mg/Ml Syringe) 1 mg IVPUSH Q3H PRN; Protocol PRN Reason: Pain, Severe (Pain Scale 7-10) Last Admin: 02/23/21 13:25 Dose: 1 mg Documented by: Piperacillin Sod/Tazobactam (Sod 3.375 gm/ Sodium Chloride) 50 mls @ 100 mls/hr IV Q6H [facility] Last Infusion: 02/23/21 11:26 Dose: Infused Documented by: Lactated Ringer's (Lr) 1,000 mls @ 125 mls/hr IVCONT .Q8H [facility] Last Admin: 02/23/21 13:20 Dose: Not Given Documented by: Cefotetan Disodium 2 gm/ (Sodium Chloride) 50 mls @ 100 mls/hr IV PREOP ONE Stop: 02/26/21 15:14 Melatonin (Melatonin 3 Mg Tablet) 6 mg PO BEDTIME PRN PRN Reason: Insomnia Ondansetron HCl (Ondansetron Hcl 4 Mg/2 Ml Vial) 4 mg IVPUSH Q8H PRN PRN Reason: Nausea and Vomiting Last Admin: 02/22/21 23:18 Dose: 4 mg Documented by: Oxycodone HCl (Oxycodone Hcl Immed Release 5 Mg Tablet) 10 mg PO Q4H PRN PRN Reason: Pain, Moderate (Pain Scale 4-6 Last Admin: 02/23/21 15:08 Dose: 10 mg Documented by: Oxycodone HCl (Oxycodone Hcl Immed Release 5 Mg Tablet) 5 mg PO Q6H PRN PRN Reason: Pain, Severe (Pain Scale 7-10) Last Admin: 02/23/21 08:08 Dose: 5 mg Documented by: Pharmacy Consult (Consult Rx Perform Med Rec) 1 each MISCELLANE ONCE PRN PRN Reason: Consult order Sodium Chloride (0.9 % Sodium Chloride Flush 3 Ml Syringe) 3 ml IVFLUSH [facility] Last Admin: 02/23/21 14:54 Dose: Not Given Documented by: Time Spent With Patient Time: Total time spent is greater than 50% in coordination of care (as documented) at patient's floor/unit and/or counseling patient: Time with patient: 15 - 24 minutes Quality Stroke Does the patient have a stroke diagnosis?: No VTE Prior VTE?: No VTE Risk Level:: Medical - low VTE Device Contraindication: Treatment Not Indicated VTE Drug Contraindication: Treatment Not Indicated
[2021-02-24] VITALS: BP 155/77; PULSE 93; RESP 16; TEMP 37.1; O2SAT 98
[2021-02-24] MEDS: HYDROmorphone HCl 1 MG/ML SYRINGE IVPUSH ×10 (01:36→22:11)
[2021-02-24] MEDS: oxyCODONE HCl Immed Release 5 MG TABLET 10 MG PO ×2 (02:29→15:52)
[2021-02-24] MEDS: Lactated Ringers 1,000 ML 125 ML IVCONT ×3 (02:30→22:12)
[2021-02-24 04:00] VITALS: BP 132/64; PULSE 74; RESP 16; TEMP 36.8; O2SAT 98
[2021-02-24] MEDS: Piperacillin Sodium/Tazobactam 3.375 GM in 0.9 % Sodium Chloride 50 ML IV ×4 (06:09→22:12)
[2021-02-24 08:16] VITALS: BP 168/89; PULSE 99; RESP 18; TEMP 37.2; O2SAT 98
[2021-02-24] MEDS: amLODIPine Besylate 5 MG TABLET PO (08:24)
--- NOTE | 2021-02-24 08:38 | HO.PM.IMPN ---
Subjective Subjective Date of Service: 02/24/21 Interval History: f/u on acute pancreatitis, gallstones, still has pain, slept well. Review of Systems no fever +abd pain Physical Exam Vital Signs: Vital Signs: Last Vital Signs Temp 99.0 F 02/24/21 08:16 Pulse 99 02/24/21 08:16 Resp 18 02/24/21 08:16 BP 168/89 H 02/24/21 08:16 Pulse Ox 98 02/24/21 08:16 Body Mass Index 28.2 Const: Other: General: AO X 3, no acute distress Resp: CTA bilateral CVS: S1,S2,RRR GI: mild to moderate tenderness Skin: No rash Neuro: motor grossly intact Psych: appropriate affect Objective Data Active Medications Al Hydroxide/Mg Hydroxide (Magnesium Hydrox/Alum Hydrox 30 Ml Oral.Susp) 15 ml PO Q6H PRN PRN Reason: Dyspepsia Last Admin: 02/20/21 11:10 Dose: 15 ml Documented by: PAU Amlodipine Besylate (Amlodipine Besylate 5 Mg Tablet) 5 mg PO DAILY [facility]; Protocol Last Admin: 02/24/21 08:24 Dose: 5 mg Documented by: DORINA Baclofen (Baclofen 10 Mg Tablet) 10 mg PO TID PRN PRN Reason: Hicups Last Admin: 02/23/21 04:48 Dose: 10 mg Documented by: ROSE MARY Hydromorphone HCl (Hydromorphone Hcl 1 Mg/Ml Syringe) 1 mg IVPUSH Q2H PRN; Protocol PRN Reason: Pain, Severe (Pain Scale 7-10) Last Admin: 02/24/21 08:23 Dose: 1 mg Documented by: DORINA Piperacillin Sod/Tazobactam (Sod 3.375 gm/ Sodium Chloride) 50 mls @ 100 mls/hr IV Q6H [facility] Last Infusion: 02/24/21 07:44 Dose: 0 mls/hr Documented by: DORINA Lactated Ringer's (Lr) 1,000 mls @ 125 mls/hr IVCONT .Q8H [facility] Last Admin: 02/24/21 07:43 Dose: Not Given Documented by: DORINA Non-Admin Reason: IV Running Cefotetan Disodium 2 gm/ (Sodium Chloride) 50 mls @ 100 mls/hr IV PREOP ONE Stop: 02/26/21 15:14 Melatonin (Melatonin 3 Mg Tablet) 6 mg PO BEDTIME PRN PRN Reason: Insomnia Ondansetron HCl (Ondansetron Hcl 4 Mg/2 Ml Vial) 4 mg IVPUSH Q8H PRN PRN Reason: Nausea and Vomiting Last Admin: 02/22/21 23:18 Dose: 4 mg Documented by: ROSE MARY Oxycodone HCl (Oxycodone Hcl Immed Release 5 Mg Tablet) 10 mg PO Q4H PRN PRN Reason: Pain, Moderate (Pain Scale 4-6 Last Admin: 02/24/21 02:29 Dose: 10 mg Documented by: HAWA Oxycodone HCl (Oxycodone Hcl Immed Release 5 Mg Tablet) 5 mg PO Q6H PRN PRN Reason: Pain, Severe (Pain Scale 7-10) Last Admin: 02/23/21 08:08 Dose: 5 mg Documented by: COTEMA Pharmacy Consult (Consult Rx Perform Med Rec) 1 each MISCELLANE ONCE PRN PRN Reason: Consult order Sodium Chloride (0.9 % Sodium Chloride Flush 3 Ml Syringe) 3 ml IVFLUSH QSHIFT [facility] Last Admin: 02/24/21 08:09 Dose: Not Given Documented by: DORINA Non-Admin Reason: IV Running Labs CBC & Chem 7: 02/22/21 08:05 02/21/21 08:35 Assessment and Plan (1) Acute gallstone pancreatitis: Status: Acute (2) Pancreatitis: Status: Acute (3) Pancreatitis, acute: Status: Acute Assessment and Plan: 30 year old male with acute severe pancraitis, gallstone, elevated LFTS. Suspect gallstone pancreatitis or possible drug induced, ie gabapentin Plan: Acute pancreatitis, probably related to [place] repeat CT 02/23--Acute interstitial pancreatitis similar to recent CT scan. Small amount of ascites. No organized fluid collection or pancreatic duct dilatation seen.Gallstones. Diffuse gallbladder wall thickening and edema. Normal caliber intrahepatic bile ducts. Minimally dilated common bile duct measuring 8 to 9 mm. No common bile duct stone seen. Elevated LFTS, lipase --now normal but persistent pain WBC is down, no fever -Liquid diet -continue dialudid -Empiric Zosyn for leukocytosis Out of bed, ambulate -Surgery to arrange for Cholecystectomy friday HTN--Norvasc Hicups--Baclofen PRN Quality Stroke Does the patient have a stroke diagnosis?: No VTE Prior VTE?: No VTE Risk Level:: Medical - low VTE Device Contraindication: Treatment Not Indicated VTE Drug Contraindication: Treatment Not Indicated
[2021-02-24 11:57] VITALS: BP 160/86; PULSE 97; RESP 18; TEMP 36.9; O2SAT 100
--- NOTE | 2021-02-24 12:58 | P.PNGS_ITS ---
Subjective Subjective Date of Service: 02/24/21 Interval history: Feels a little bit better today, but reports ongoing significant upper abdominal pain. No nausea. Notes swelling around flank area Physical Exam Vital Signs: Vital Signs: Last Vital Signs Temp 98.4 F 02/24/21 11:57 Pulse 97 02/24/21 11:57 Resp 18 02/24/21 11:57 BP 160/86 H 02/24/21 11:57 Pulse Ox 100 02/24/21 11:57 Body Mass Index 28.2 Const: General: cooperative, no acute distress, alert, awake and ill appearing HENMT: Head: Yes normocephalic and Yes atraumatic Neck: Neck: Yes trachea midline and Yes supple Resp: Effort & Inspection: normal respiratory effort Auscultation: clear to auscultation bilaterally Cardio: Rate: regular rate Rhythm: regular rhythm GI: Other: Round, soft, moderately tender upper abdomen and left lower quadrant, bowel sounds active, mild fullness flank areas without discoloration Skin: Other: Normal color, warm and dry Objective Data Active Medications Al Hydroxide/Mg Hydroxide (Magnesium Hydrox/Alum Hydrox 30 Ml Oral.Susp) 15 ml PO Q6H PRN PRN Reason: Dyspepsia Last Admin: 02/20/21 11:10 Dose: 15 ml Documented by: PAU Amlodipine Besylate (Amlodipine Besylate 5 Mg Tablet) 5 mg PO DAILY [facility]; Protocol Last Admin: 02/24/21 08:24 Dose: 5 mg Documented by: DORINA Baclofen (Baclofen 10 Mg Tablet) 10 mg PO TID PRN PRN Reason: Hicups Last Admin: 02/23/21 04:48 Dose: 10 mg Documented by: ROSE MARY Hydromorphone HCl (Hydromorphone Hcl 1 Mg/Ml Syringe) 1 mg IVPUSH Q2H PRN; Protocol PRN Reason: Pain, Severe (Pain Scale 7-10) Last Admin: 02/24/21 12:50 Dose: 1 mg Documented by: DORINA Piperacillin Sod/Tazobactam (Sod 3.375 gm/ Sodium Chloride) 50 mls @ 100 mls/hr IV Q6H [facility] Last Infusion: 02/24/21 12:05 Dose: 0 mls/hr Documented by: DORINA Lactated Ringer's (Lr) 1,000 mls @ 125 mls/hr IVCONT .Q8H [facility] Last Admin: 02/24/21 12:45 Dose: 125 mls/hr Documented by: DORINA Cefotetan Disodium 2 gm/ (Sodium Chloride) 50 mls @ 100 mls/hr IV PREOP ONE Stop: 02/26/21 15:14 Melatonin (Melatonin 3 Mg Tablet) 6 mg PO BEDTIME PRN PRN Reason: Insomnia Ondansetron HCl (Ondansetron Hcl 4 Mg/2 Ml Vial) 4 mg IVPUSH Q8H PRN PRN Reason: Nausea and Vomiting Last Admin: 02/22/21 23:18 Dose: 4 mg Documented by: ROSE MARY Oxycodone HCl (Oxycodone Hcl Immed Release 5 Mg Tablet) 10 mg PO Q4H PRN PRN Reason: Pain, Moderate (Pain Scale 4-6 Last Admin: 02/24/21 02:29 Dose: 10 mg Documented by: HAWA Oxycodone HCl (Oxycodone Hcl Immed Release 5 Mg Tablet) 5 mg PO Q6H PRN PRN Reason: Pain, Severe (Pain Scale 7-10) Last Admin: 02/23/21 08:08 Dose: 5 mg Documented by: COTEMA Pharmacy Consult (Consult Rx Perform Med Rec) 1 each MISCELLANE ONCE PRN PRN Reason: Consult order Sodium Chloride (0.9 % Sodium Chloride Flush 3 Ml Syringe) 3 ml IVFLUSH QSHIFT [facility] [place] Last Admin: 02/24/21 08:09 Dose: Not Given Documented by: DORINA Non-Admin Reason: IV Running Labs CBC & Chem 7: 02/22/21 08:05 02/21/21 08:35 Microbiology Microbiology Results: Microbiology 02/19/21 07:21 Blood Culture - Final Blood - Venous No growth after 5 days. 02/19/21 07:21 Blood Culture - Final Blood - Venous No growth after 5 days. Procedures Date of Service Date of Service: 02/24/21 Progress Note: A&P Assessment and plan (1) Acute gallstone pancreatitis: Status: Acute Assessment and Plan: 30-year-old male with resolving gallstone pancreatitis. On clear liquid diet. Plan to proceed with laparoscopic cholecystectomy once symptoms of pancreatitis have improved significantly. Fall Risk Details Current Medications: Current Medications Al Hydroxide/Mg Hydroxide (Magnesium Hydrox/Alum Hydrox 30 Ml Oral.Susp) 15 ml PO Q6H PRN PRN Reason: Dyspepsia Last Admin: 02/20/21 11:10 Dose: 15 ml Documented by: Amlodipine Besylate (Amlodipine Besylate 5 Mg Tablet) 5 mg PO DAILY [facility] [place]; Protocol Last Admin: 02/24/21 08:24 Dose: 5 mg Documented by: Baclofen (Baclofen 10 Mg Tablet) 10 mg PO TID PRN PRN Reason: Hicups Last Admin: 02/23/21 04:48 Dose: 10 mg Documented by: Hydromorphone HCl (Hydromorphone Hcl 1 Mg/Ml Syringe) 1 mg IVPUSH Q2H PRN; Protocol PRN Reason: Pain, Severe (Pain Scale 7-10) Last Admin: 02/24/21 12:50 Dose: 1 mg Documented by: Piperacillin Sod/Tazobactam (Sod 3.375 gm/ Sodium Chloride) 50 mls @ 100 mls/hr IV Q6H [facility] [place] Last Infusion: 02/24/21 12:05 Dose: Infused Documented by: Lactated Ringer's (Lr) 1,000 mls @ 125 mls/hr IVCONT .Q8H [facility] [place] Last Admin: 02/24/21 12:45 Dose: 125 mls/hr Documented by: Cefotetan Disodium 2 gm/ (Sodium Chloride) 50 mls @ 100 mls/hr IV PREOP ONE Stop: 02/26/21 15:14 Melatonin (Melatonin 3 Mg Tablet) 6 mg PO BEDTIME PRN PRN Reason: Insomnia Ondansetron HCl (Ondansetron Hcl 4 Mg/2 Ml Vial) 4 mg IVPUSH Q8H PRN PRN Reason: Nausea and Vomiting Last Admin: 02/22/21 23:18 Dose: 4 mg Documented by: Oxycodone HCl (Oxycodone Hcl Immed Release 5 Mg Tablet) 10 mg PO Q4H PRN PRN Reason: Pain, Moderate (Pain Scale 4-6 Last Admin: 02/24/21 02:29 Dose: 10 mg Documented by: Oxycodone HCl (Oxycodone Hcl Immed Release 5 Mg Tablet) 5 mg PO Q6H PRN PRN Reason: Pain, Severe (Pain Scale 7-10) Last Admin: 02/23/21 08:08 Dose: 5 mg Documented by: Pharmacy Consult (Consult Rx Perform Med Rec) 1 each MISCELLANE ONCE PRN PRN Reason: Consult order Sodium Chloride (0.9 % Sodium Chloride Flush 3 Ml Syringe) [address] [facility] Last Admin: 02/24/21 08:09 Dose: Not Given Documented by: Time Spent With Patient Time: Total time spent is greater than 50% in coordination of care (as documented) at patient's floor/unit and/or counseling patient: Time with patient: less than 15 minutes Quality Stroke Does the patient have a stroke diagnosis?: No VTE Prior VTE?: No VTE Risk Level:: Medical - low VTE Device Contraindication: Treatment Not Indicated VTE Drug Contraindication: Treatment Not Indicated
[2021-02-24 16:00] VITALS: BP 161/87; PULSE 101; RESP 17; TEMP 37.5; O2SAT 96
[2021-02-24 19:47] VITALS: BP 154/90; PULSE 96; RESP 16; TEMP 37.3; O2SAT 97
[2021-02-24] MEDS: ondansetron HCL 4 MG/2 ML VIAL IVPUSH (22:11)
[2021-02-25] VITALS (7 sets, daily range): BP systolic 125–165; BP diastolic 59–91; PULSE 75–98; RESP 17–20; TEMP 36.2–37.6; O2SAT 95–99
[2021-02-25] MEDS: HYDROmorphone HCl 1 MG/ML SYRINGE IVPUSH ×10 (00:03→22:10)
[2021-02-25] MEDS: Piperacillin Sodium/Tazobactam 3.375 GM in 0.9 % Sodium Chloride 50 ML IV ×4 (04:33→22:10)
[2021-02-25] MEDS: Lactated Ringers 1,000 ML 125 ML IVCONT (06:10)
--- NOTE | 2021-02-25 08:23 | P.PNIM_ITS ---
Subjective Subjective Date of Service: 02/25/21 Interval History: f/u on acute pancreatitis, gallston. Pain is much better conroled Review of Systems no fever +abd pain, better, no n/v Physical Exam Vital Signs: Vital Signs: Last Vital Signs Temp 98.6 F 02/25/21 08:00 Pulse 88 02/25/21 08:00 Resp 18 02/25/21 08:00 BP 156/88 H 02/25/21 08:00 Pulse Ox 99 02/25/21 08:00 Body Mass Index 28.2 Const: Other: General: AO X 3, no acute distress Resp: CTA bilateral CVS: S1,S2,RRR GI: mild tenderness Skin: No rash Neuro: motor grossly intact Psych: appropriate affect Objective Data Active Medications Al Hydroxide/Mg Hydroxide (Magnesium Hydrox/Alum Hydrox 30 Ml Oral.Susp) 15 ml PO Q6H PRN PRN Reason: Dyspepsia Last Admin: 02/20/21 11:10 Dose: 15 ml Documented by: PAU Amlodipine Besylate (Amlodipine Besylate 5 Mg Tablet) 5 mg PO DAILY [facility]; Protocol Last Admin: 02/24/21 08:24 Dose: 5 mg Documented by: DORINA Baclofen (Baclofen 10 Mg Tablet) 10 mg PO TID PRN PRN Reason: Hicups Last Admin: 02/23/21 04:48 Dose: 10 mg Documented by: ROSE MARY Hydromorphone HCl (Hydromorphone Hcl 1 Mg/Ml Syringe) 1 mg IVPUSH Q2H PRN; Protocol PRN Reason: Pain, Severe (Pain Scale 7-10) Last Admin: 02/25/21 06:10 Dose: 1 mg Documented by: TONI Piperacillin Sod/Tazobactam (Sod 3.375 gm/ Sodium Chloride) 50 mls @ 100 mls/hr IV Q6H [facility] Last Infusion: 02/25/21 05:21 Dose: 0 mls/hr Documented by: TONI Lactated Ringer's (Lr) 1,000 mls @ 125 mls/hr IVCONT .Q8H [facility] Last Admin: 02/25/21 06:10 Dose: 125 mls/hr Documented by: TONI Cefotetan Disodium 2 gm/ (Sodium Chloride) 50 mls @ 100 mls/hr IV PREOP ONE Stop: 02/26/21 15:14 Melatonin (Melatonin 3 Mg Tablet) 6 mg PO BEDTIME PRN PRN Reason: Insomnia Ondansetron HCl (Ondansetron Hcl 4 Mg/2 Ml Vial) 4 mg IVPUSH Q8H PRN PRN Reason: Nausea and Vomiting Last Admin: 02/24/21 22:11 Dose: 4 mg Documented by: TONI Oxycodone HCl (Oxycodone Hcl Immed Release 5 Mg Tablet) 5 mg PO Q6H PRN PRN Reason: Pain, Severe (Pain Scale 7-10) Last Admin: 02/23/21 08:08 Dose: 5 mg Documented by: COTEMA Pharmacy Consult (Consult Rx Perform Med Rec) 1 each MISCELLANE ONCE PRN PRN Reason: Consult order Sodium Chloride (0.9 % Sodium Chloride Flush 3 Ml Syringe) [facility] Last Admin: 02/24/21 23:53 Dose: Not Given Documented by: TONI Non-Admin Reason: IV Running Labs CBC & Chem 7: 02/22/21 08:05 02/21/21 08:35 Microbiology Microbiology Results: Microbiology 02/19/21 07:21 Blood Culture - Final Blood - Venous No growth after 5 days. 02/19/21 07:21 Blood Culture - Final Blood - Venous No growth after 5 days. Assessment and Plan (1) Acute gallstone pancreatitis: Status: Acute (2) Pancreatitis, acute: Status: Acute Assessment and Plan: 30 year old male with acute severe pancraitis, gallstone, elevated LFTS. Suspect gallstone pancreatitis or possible drug induced, ie gabapentin Plan: Acute pancreatitis, related to [place] repeat CT 02/23--Acute interstitial pancreatitis similar to recent CT scan. Small amount of ascites. No organized fluid collection or pancreatic duct dilatation seen.Gallstones. Diffuse gallbladder wall thickening and edema. Normal caliber intrahepatic bile ducts. Minimally dilated common bile duct measuring 8 to 9 mm. No common bile duct stone seen. Elevated LFTS, lipase --now normal but persistent pain WBC is down, no fever -Liquid diet -continue dialudid -Empiric Zosyn for leukocytosis Out of bed, ambulate -Surgery to arrange for Cholecystectomy tomorrow HTN--Norvasc Hicups--Baclofen PRN Quality Stroke Does the patient have a stroke diagnosis?: No VTE Prior VTE?: No VTE Risk Level:: Medical - low VTE Device Contraindication: Treatment Not Indicated VTE Drug Contraindication: Treatment Not Indicated
[2021-02-25] MEDS: amLODIPine Besylate 5 MG TABLET PO (08:28)
--- NOTE | 2021-02-25 12:52 | PM.PNGS ---
Subjective Subjective Date of Service: 02/25/21 Interval history: Feels better. Abdominal pain is still present but is decreasing. He was able to sleep last night. Feels like he will be ready for surgery tomorrow. Tolerating liquids and some solid food. Physical Exam Vital Signs: Vital Signs: Last Vital Signs Temp 99.7 F 02/25/21 11:46 Pulse 98 02/25/21 11:46 Resp 18 02/25/21 11:46 BP 157/84 H 02/25/21 11:46 Pulse Ox 96 02/25/21 11:46 Body Mass Index 28.2 Const: General: comfortable, alert and awake HENMT: Head: Yes normocephalic and Yes atraumatic Resp: Effort & Inspection: normal respiratory effort Auscultation: clear to auscultation bilaterally Cardio: Rate: regular rate Rhythm: regular rhythm GI: Other: Round, soft, mildly to moderately tender upper abdomen and left lower quadrant significantly improved from yesterday Skin: Other: Normal color, warm and dry Objective Data Active Medications Al Hydroxide/Mg Hydroxide (Magnesium Hydrox/Alum Hydrox 30 Ml Oral.Susp) 15 ml PO Q6H PRN PRN Reason: Dyspepsia Last Admin: 02/20/21 11:10 Dose: 15 ml Documented by: PAU Amlodipine Besylate (Amlodipine Besylate 5 Mg Tablet) 5 mg PO DAILY [facility]; Protocol Last Admin: 02/25/21 08:28 Dose: 5 mg Documented by: MCKAY Baclofen (Baclofen 10 Mg Tablet) 10 mg PO TID PRN PRN Reason: Hicups Last Admin: 02/23/21 04:48 Dose: 10 mg Documented by: ROSE MARY Hydromorphone HCl (Hydromorphone Hcl 1 Mg/Ml Syringe) 1 mg IVPUSH Q2H PRN; Protocol PRN Reason: Pain, Severe (Pain Scale 7-10) Last Admin: 02/25/21 11:22 Dose: 1 mg Documented by: MCKAY Piperacillin Sod/Tazobactam (Sod 3.375 gm/ Sodium Chloride) 50 mls @ 100 mls/hr IV Q6H [facility] Last Infusion: 02/25/21 11:54 Dose: 0 mls/hr Documented by: MCKAY Lactated Ringer's (Lr) 1,000 mls @ 125 mls/hr IVCONT .Q8H [facility] Last Admin: 02/25/21 06:10 Dose: 125 mls/hr Documented by: TONI Cefotetan Disodium 2 gm/ (Sodium Chloride) 50 mls @ 100 mls/hr IV PREOP ONE Stop: 02/26/21 15:14 Melatonin (Melatonin 3 Mg Tablet) 6 mg PO BEDTIME PRN PRN Reason: Insomnia Ondansetron HCl (Ondansetron Hcl 4 Mg/2 Ml Vial) 4 mg IVPUSH Q8H PRN PRN Reason: Nausea and Vomiting Last Admin: 02/24/21 22:11 Dose: 4 mg Documented by: TONI Oxycodone HCl (Oxycodone Hcl Immed Release 5 Mg Tablet) 5 mg PO Q6H PRN PRN Reason: Pain, Severe (Pain Scale 7-10) Last Admin: 02/23/21 08:08 Dose: 5 mg Documented by: COTEMA Pharmacy Consult (Consult Rx Perform Med Rec) 1 each MISCELLANE ONCE PRN PRN Reason: Consult order Sodium Chloride (0.9 % Sodium Chloride Flush 3 Ml Syringe) 3 ml IVFLUSH QSHIFT [facility] Last Admin: 02/25/21 08:30 Dose: Not Given Documented by: MCKAY Non-Admin Reason: IV Running Labs CBC & Chem 7: 02/22/21 08:05 02/21/21 08:35 Microbiology Microbiology Results: Microbiology 02/19/21 07:21 Blood Culture - Final Blood - Venous No growth after 5 days. 02/19/21 07:21 Blood Culture - Final Blood - Venous No growth after 5 days. Procedures Date of Service Date of Service: 02/25/21 Progress Note: A&P Assessment and plan (1) Acute gallstone pancreatitis: Status: Acute Assessment and Plan: Improving gallstone pancreatitis. Scheduled for laparoscopic cholecystectomy tomorrow. Will keep NPO after midnight. Fall Risk Details Current Medications: Current Medications Al Hydroxide/Mg Hydroxide (Magnesium Hydrox/Alum Hydrox 30 Ml Oral.Susp) 15 ml PO Q6H PRN PRN Reason: Dyspepsia Last Admin: 02/20/21 11:10 Dose: 15 ml Documented by: Amlodipine Besylate (Amlodipine Besylate 5 Mg Tablet) 5 mg PO DAILY [facility]; Protocol Last Admin: 02/25/21 08:28 Dose: 5 mg Documented by: Baclofen (Baclofen 10 Mg Tablet) 10 mg PO TID PRN PRN Reason: Hicups Last Admin: 02/23/21 04:48 Dose: 10 mg Documented by: Hydromorphone HCl (Hydromorphone Hcl 1 Mg/Ml Syringe) 1 mg IVPUSH Q2H PRN; Protocol PRN Reason: Pain, Severe (Pain Scale 7-10) Last Admin: 02/25/21 11:22 Dose: 1 mg Documented by: Piperacillin Sod/Tazobactam (Sod 3.375 gm/ Sodium Chloride) 50 mls @ 100 mls/hr IV Q6H [facility] Last Infusion: 02/25/21 11:54 Dose: Infused Documented by: Lactated Ringer's (Lr) 1,000 mls @ 125 mls/hr IVCONT .Q8H [facility] Last Admin: 02/25/21 06:10 Dose: 125 mls/hr Documented by: Cefotetan Disodium 2 gm/ (Sodium Chloride) 50 mls @ 100 mls/hr IV PREOP ONE Stop: 02/26/21 15:14 Melatonin (Melatonin 3 Mg Tablet) 6 mg PO BEDTIME PRN PRN Reason: Insomnia Ondansetron HCl (Ondansetron Hcl 4 Mg/2 Ml Vial) 4 mg IVPUSH Q8H PRN PRN Reason: Nausea and Vomiting Last Admin: 02/24/21 22:11 Dose: 4 mg Documented by: Oxycodone HCl (Oxycodone Hcl Immed Release 5 Mg Tablet) 5 mg PO Q6H PRN PRN Reason: Pain, Severe (Pain Scale 7-10) Last Admin: 02/23/21 08:08 Dose: 5 mg Documented by: Pharmacy Consult (Consult Rx Perform Med Rec) 1 each MISCELLANE ONCE PRN PRN Reason: Consult order Sodium Chloride (0.9 % Sodium Chloride Flush 3 Ml Syringe) [facility] Last Admin: 02/25/21 08:30 Dose: Not Given Documented by: Time Spent With Patient Time: Total time spent is greater than 50% in coordination of care (as documented) at patient's floor/unit and/or counseling patient: Time with patient: less than 15 minutes Quality Stroke Does the patient have a stroke diagnosis?: No VTE Prior VTE?: No VTE Risk Level:: Medical - low VTE Device Contraindication: Treatment Not Indicated VTE Drug Contraindication: Treatment Not Indicated
[2021-02-25] MEDS: 0.9 % Sodium Chloride Flush 3 ML SYRINGE IVFLUSH (17:06)
[2021-02-25] MEDS: Magnesium Hydrox/Alum Hydrox 30 ML ORAL.SUSP 15 ML PO (19:55)
[2021-02-25] MEDS: Dextrose 5 % and Lactated Ring 1,000 ML 50 ML IVCONT (19:56)
[2021-02-25] MEDS: Melatonin 3 MG TABLET 6 MG PO (22:43)
[2021-02-26] VITALS (12 sets, daily range): BP systolic 132–173; BP diastolic 75–109; PULSE 75–132; RESP 16–20; TEMP 36.2–37.2; O2SAT 95–98
[2021-02-26] MEDS: HYDROmorphone HCl 1 MG/ML SYRINGE IVPUSH ×10 (00:42→23:54)
[2021-02-26] MEDS: Piperacillin Sodium/Tazobactam 3.375 GM in 0.9 % Sodium Chloride 50 ML IV ×4 (05:46→23:53)
--- NOTE | 2021-02-26 07:48 | P.PNIM_ITS ---
Subjective Subjective Date of Service: 02/26/21 Interval History: f/u on acute pancreatitis, gallston. Pain continues to improve Review of Systems no fever +abd pain, better, no n/v Physical Exam Vital Signs: Vital Signs: Last Vital Signs Temp 97.2 F 02/26/21 04:00 Pulse 75 02/26/21 04:00 Resp 16 02/26/21 05:46 BP 144/85 H 02/26/21 04:00 Pulse Ox 97 02/26/21 04:00 Body Mass Index 28.2 Const: Other: General: AO X 3, no acute distress Resp: CTA bilateral CVS: S1,S2,RRR GI: mild tenderness Skin: No rash Neuro: motor grossly intact Psych: appropriate affect Objective Data Active Medications Al Hydroxide/Mg Hydroxide (Magnesium Hydrox/Alum Hydrox 30 Ml Oral.Susp) 15 ml PO Q6H PRN PRN Reason: Dyspepsia Last Admin: 02/25/21 19:55 Dose: 15 ml Documented by: SHERRELL Amlodipine Besylate (Amlodipine Besylate 5 Mg Tablet) 5 mg PO DAILY [facility]; Protocol Last Admin: 02/25/21 08:28 Dose: 5 mg Documented by: MCKAY Baclofen (Baclofen 10 Mg Tablet) 10 mg PO TID PRN PRN Reason: Hicups Last Admin: 02/23/21 04:48 Dose: 10 mg Documented by: ROSE MARY Hydromorphone HCl (Hydromorphone Hcl 1 Mg/Ml Syringe) 1 mg IVPUSH Q2H PRN; Protocol PRN Reason: Pain, Severe (Pain Scale 7-10) Last Admin: 02/26/21 05:46 Dose: 1 mg Documented by: ARLIN Piperacillin Sod/Tazobactam (Sod 3.375 gm/ Sodium Chloride) 50 mls @ 100 mls/hr IV Q6H [facility] Last Infusion: 02/26/21 06:34 Dose: 0 mls/hr Documented by: ARLIN Cefotetan Disodium 2 gm/ (Sodium Chloride) 50 mls @ 100 mls/hr IV PREOP ONE Stop: 02/26/21 15:14 Dextrose/Lactated Ringer's (D5lr) 1,000 mls @ 50 mls/hr IVCONT .Q20H [facility] Last Admin: 02/25/21 19:56 Dose: 50 mls/hr Documented by: SHERRELL Melatonin (Melatonin 3 Mg Tablet) 6 mg PO BEDTIME PRN PRN Reason: Insomnia Last Admin: 02/25/21 22:43 Dose: 6 mg Documented by: SHERRELL Ondansetron HCl (Ondansetron Hcl 4 Mg/2 Ml Vial) 4 mg IVPUSH Q8H PRN PRN Reason: Nausea and Vomiting Last Admin: 02/24/21 22:11 Dose: 4 mg Documented by: TONI Oxycodone HCl (Oxycodone Hcl Immed Release 5 Mg Tablet) 5 mg PO Q6H PRN PRN Reason: Pain, Severe (Pain Scale 7-10) Last Admin: 02/23/21 08:08 Dose: 5 mg Documented by: ANTONIOEMA Pharmacy Consult (Consult Rx Perform Med Rec) 1 each MISCELLANE ONCE PRN PRN Reason: Consult order Sodium Chloride (0.9 % Sodium Chloride Flush 3 Ml Syringe) [facility] Last Admin: 02/26/21 01:07 Dose: Not Given Documented by: ARLIN Non-Admin Reason: IV Running Labs CBC & Chem 7: 02/22/21 08:05 02/21/21 08:35 Assessment and Plan (1) Acute gallstone pancreatitis: Status: Acute (2) Pancreatitis: Status: Acute (3) Pancreatitis, acute: Status: Acute Assessment and Plan: 30 year old male with acute severe pancraitis, gallstone, elevated LFTS. Suspect gallstone pancreatitis or possible drug induced, ie gabapentin Plan: Acute pancreatitis, related to [place] repeat CT 02/23--Acute interstitial pancreatitis similar to recent CT scan. Small amount of ascites. No organized fluid collection or pancreatic duct dilatation seen.Gallstones. Diffuse gallbladder wall thickening and edema. Normal caliber intrahepatic bile ducts. Minimally dilated common bile duct measuring 8 to 9 mm. No common bile duct stone seen. Elevated LFTS, lipase --now normal but persistent pain WBC is down, no fever -Liquid diet -continue dialudid -Empiric Zosyn for leukocytosis Out of bed, ambulate -Another CT of abdomen is planned today, then CCY tomorrow HTN--Norvasc Hicups--Baclofen PRN Quality Stroke Does the patient have a stroke diagnosis?: No VTE Prior VTE?: No VTE Risk Level:: Medical - low VTE Device Contraindication: Treatment Not Indicated VTE Drug Contraindication: Treatment Not Indicated
[2021-02-26] MEDS: amLODIPine Besylate 5 MG TABLET PO (08:01)
--- NOTE | 2021-02-26 08:04 | PM.PNGS ---
Subjective Subjective Date of Service: 02/28/21 Interval history: says he stilll has abdominal pain but thinks this is improving Some hiccups still asks for Dilaudid Physical Exam Vital Signs: Vital Signs: Last Vital Signs Temp 97.2 F 02/26/21 04:00 Pulse 75 02/26/21 04:00 Resp 16 02/26/21 05:46 BP 144/85 H 02/26/21 04:00 Pulse Ox 97 02/26/21 04:00 Body Mass Index 28.2 Const: General: comfortable and no acute distress Resp: Effort & Inspection: normal respiratory effort Cardio: Rate: regular rate GI: Other: Some tenderness to be gastric area Palpation (GI): Soft to palpation, not firm and no guarding Objective Data Active Medications Al Hydroxide/Mg Hydroxide (Magnesium Hydrox/Alum Hydrox 30 Ml Oral.Susp) 15 ml PO Q6H PRN PRN Reason: Dyspepsia Last Admin: 02/25/21 19:55 Dose: 15 ml Documented by: SHERRELL Amlodipine Besylate (Amlodipine Besylate 5 Mg Tablet) 5 mg PO DAILY [facility]; Protocol Last Admin: 02/25/21 08:28 Dose: 5 mg Documented by: MCKAY Baclofen (Baclofen 10 Mg Tablet) 10 mg PO TID PRN PRN Reason: Hicups Last Admin: 02/23/21 04:48 Dose: 10 mg Documented by: ROSE MARY Hydromorphone HCl (Hydromorphone Hcl 1 Mg/Ml Syringe) 1 mg IVPUSH Q2H PRN; Protocol PRN Reason: Pain, Severe (Pain Scale 7-10) Last Admin: 02/26/21 05:46 Dose: 1 mg Documented by: ARLIN Piperacillin Sod/Tazobactam (Sod 3.375 gm/ Sodium Chloride) 50 mls @ 100 mls/hr IV Q6H [facility] Last Infusion: 02/26/21 06:34 Dose: 0 mls/hr Documented by: ARLIN Cefotetan Disodium 2 gm/ (Sodium Chloride) 50 mls @ 100 mls/hr IV PREOP ONE Stop: 02/26/21 15:14 Dextrose/Lactated Ringer's (D5lr) 1,000 mls @ 50 mls/hr IVCONT .Q20H [facility] Last Admin: 02/25/21 19:56 Dose: 50 mls/hr Documented by: SHERRELL Melatonin (Melatonin 3 Mg Tablet) 6 mg PO BEDTIME PRN PRN Reason: Insomnia Last Admin: 02/25/21 22:43 Dose: 6 mg Documented by: SHERRELL Ondansetron HCl (Ondansetron Hcl 4 Mg/2 Ml Vial) 4 mg IVPUSH Q8H PRN PRN Reason: Nausea and Vomiting Last Admin: 02/24/21 22:11 Dose: 4 mg Documented by: TONI Oxycodone HCl (Oxycodone Hcl Immed Release 5 Mg Tablet) 5 mg PO Q6H PRN PRN Reason: Pain, Severe (Pain Scale 7-10) Last Admin: 02/23/21 08:08 Dose: 5 mg Documented by: JAZMIN Pharmacy Consult (Consult Rx Perform Med Rec) 1 each MISCELLANE ONCE PRN PRN Reason: Consult order Sodium Chloride (0.9 % Sodium Chloride Flush 3 Ml Syringe) 3 ml IVFLUSH [facility] Last Admin: 02/26/21 01:07 Dose: Not Given Documented by: ARLIN Non-Admin Reason: IV Running Labs CBC & Chem 7: 02/28/21 05:16 02/28/21 05:16 Procedures Date of Service Date of Service: 02/26/21 Progress Note: A&P Assessment and plan (1) Pancreatitis, acute: Status: Acute Assessment and Plan: Seems to be improving with regards to abdominal pain CT scan last Friday showed worsening of ascites and peripancreatic fluid Plan to repeat CT scan today If this shows significant improvement of peripancreatic inflammatory changes, plan on surgery tomorrow Explained this to patient Fall Risk Details Current Medications: Current Medications Al Hydroxide/Mg Hydroxide (Magnesium Hydrox/Alum Hydrox 30 Ml Oral.Susp) 15 ml PO Q6H PRN PRN Reason: Dyspepsia Last Admin: 02/25/21 19:55 Dose: 15 ml Documented by: Amlodipine Besylate (Amlodipine Besylate 5 Mg Tablet) 5 mg PO DAILY [facility]; Protocol Last Admin: 02/25/21 08:28 Dose: 5 mg Documented by: Baclofen (Baclofen 10 Mg Tablet) 10 mg PO TID PRN PRN Reason: Hicups Last Admin: 02/23/21 04:48 Dose: 10 mg Documented by: Hydromorphone HCl (Hydromorphone Hcl 1 Mg/Ml Syringe) 1 mg IVPUSH Q2H PRN; Protocol PRN Reason: Pain, Severe (Pain Scale 7-10) Last Admin: 02/26/21 05:46 Dose: 1 mg Documented by: Piperacillin Sod/Tazobactam (Sod 3.375 gm/ Sodium Chloride) 50 mls @ 100 mls/hr IV Q6H [facility] Last Infusion: 02/26/21 06:34 Dose: Infused Documented by: Cefotetan Disodium 2 gm/ (Sodium Chloride) 50 mls @ 100 mls/hr IV PREOP ONE Stop: 02/26/21 15:14 Dextrose/Lactated Ringer's (D5lr) 1,000 mls @ 50 mls/hr IVCONT .Q20H [facility] Last Admin: 02/25/21 19:56 Dose: 50 mls/hr Documented by: Melatonin (Melatonin 3 Mg Tablet) 6 mg PO BEDTIME PRN PRN Reason: Insomnia Last Admin: 02/25/21 22:43 Dose: 6 mg Documented by: Ondansetron HCl (Ondansetron Hcl 4 Mg/2 Ml Vial) 4 mg IVPUSH Q8H PRN PRN Reason: Nausea and Vomiting Last Admin: 02/24/21 22:11 Dose: 4 mg Documented by: Oxycodone HCl (Oxycodone Hcl Immed Release 5 Mg Tablet) 5 mg PO Q6H PRN PRN Reason: Pain, Severe (Pain Scale 7-10) Last Admin: 02/23/21 08:08 Dose: 5 mg Documented by: Pharmacy Consult (Consult Rx Perform Med Rec) 1 each MISCELLANE ONCE PRN PRN Reason: Consult order Sodium Chloride (0.9 % Sodium Chloride Flush 3 Ml Syringe) 3 ml IVFLUSH QSHIFT [facility] Last Admin: 02/26/21 01:07 Dose: Not Given Documented by: Time Spent With Patient Time: Total time spent is greater than 50% in coordination of care (as documented) at patient's floor/unit and/or counseling patient: Time with patient: 15 - 24 minutes Quality Stroke Does the patient have a stroke diagnosis?: No VTE Prior VTE?: No VTE Risk Level:: Medical - low VTE Device Contraindication: Treatment Not Indicated VTE Drug Contraindication: Treatment Not Indicated
[2021-02-26] MEDS: oxyCODONE HCl Immed Release 5 MG TABLET PO ×2 (09:17→20:59)
[2021-02-26] MEDS: iohexoL 350 MG/ML 100 ML INFUS..BTL IV (10:27)
--- NOTE | 2021-02-26 15:50 | MHC.CM.PN ---
nurse care management coordinator note electronic medical rexord reviewed per documentation- (acute gallstone pancreatitis,, elevated lft's, scan worsening ascites and peripancreatic fluid, ?ccyx 02/27/21 continues liquid diet dilaudid, Zosyn)
[2021-02-26] MEDS: Dextrose 5 % and Lactated Ring 1,000 ML 50 ML IVCONT (17:01)
--- NOTE | 2021-02-26 17:30 | PM.EVENT ---
Event Note Date of Service: 02/26/21 Event Note: I had set him up for another CAT scan today this shows persistent inflammatory changes along with ascites and peripancreatic fluid I therefore told him that despite improvement of his lipase, I will hold off on doing his cholecystectomy because of these inflammatory changes. It may be best to wait a little longer for all these inflammatory changes to subside before doing cholecystectomy. He may consider going home to be discharged and have this cholecystectomy done as an outpatient. He is now resected to this He is able to tolerate oral intake at this time. I will follow him again tomorrow
[2021-02-26] MEDS: 0.9 % Sodium Chloride Flush 3 ML SYRINGE IVFLUSH (19:35)
[2021-02-27] VITALS (7 sets, daily range): BP systolic 131–151; BP diastolic 76–91; PULSE 84–110; RESP 17–19; TEMP 36.9–37.4; O2SAT 97–99
[2021-02-27] MEDS: HYDROmorphone HCl 1 MG/ML SYRINGE IVPUSH ×4 (02:12→09:09)
[2021-02-27] MEDS: Piperacillin Sodium/Tazobactam 3.375 GM in 0.9 % Sodium Chloride 50 ML IV (04:17)
[2021-02-27] MEDS: amLODIPine Besylate 5 MG TABLET PO (08:21)
[2021-02-27] MEDS: oxyCODONE HCl Immed Release 5 MG TABLET PO ×2 (12:09→15:09)
--- NOTE | 2021-02-27 16:15 | PM.EVENT ---
Event Note Date of Service: 02/27/21 Event Note: He looks well Stable vital signs Abdomen soft and benign He does state that the still requires pain medications I had a long talk with him along with his mother about pain management The patient feels that 10 mg of oxycodone will be enough for him to go home with I therefore suggested that if requires more than that, including IV pain meds, I would suggest that he states in the hospital to be monitored more closely He is agreeable to this although he seems to prefer to have higher doses of pain medications at home Will hold off on surgery at this point in view of persistent inflammatory changes in and around his pancreas despite improvement of his lipase and LFTs
--- NOTE | 2021-02-27 16:44 | HO.PM.IMPN ---
Subjective Subjective Date of Service: 02/27/21 Interval History: Being followed for gallstone pancreatitis, continued to have abdominal pain and decreased by mouth intake no episode of nausea, vomiting or diarrhea noted, no fever, chills, no other acute issues overnight. Review of Systems General no headache , no dizziness no fever chills. CVS no chest pain, no palpitation. Respiratory no cough, no sob. Gastrointestinal no nausea no vomiting, mid abdominal pain, no radiation to back Physical Exam Vital Signs: Vital Signs: Last Vital Signs Temp 98.5 F 02/27/21 15:06 Pulse 90 02/27/21 15:06 Resp 17 02/27/21 15:06 BP 131/88 02/27/21 15:06 Pulse Ox 97 02/27/21 15:06 Body Mass Index 28.2 General awake alert x3,no acute distress. Neck supple no JVD. CVS regular rate rhythm, Respiratory lungs clear to auscultation, no respiratory distress, no wheeze, no rhonchi. Gastrointestinal abdomen soft, mild tenderness to palpation mid abdomen,no guarding , no rigidity, bowel sounds audible Extremities no edema. Neuro nonfocal Skin no rash Appropriate insight Objective Data Active Medications Al Hydroxide/Mg Hydroxide (Magnesium Hydrox/Alum Hydrox 30 Ml Oral.Susp) 15 ml PO Q6H PRN PRN Reason: Dyspepsia Last Admin: 02/25/21 19:55 Dose: 15 ml Documented by: SHERRELL Amlodipine Besylate (Amlodipine Besylate 5 Mg Tablet) 5 mg PO DAILY [facility]; Protocol Last Admin: 02/27/21 08:21 Dose: 5 mg Documented by: MCKAY Baclofen (Baclofen 10 Mg Tablet) 10 mg PO TID PRN PRN Reason: Hicups Last Admin: 02/23/21 04:48 Dose: 10 mg Documented by: ROSE MARY Hydromorphone HCl (Hydromorphone Hcl 1 Mg/Ml Syringe) 0.75 mg IVPUSH Q4H PRN; Protocol PRN Reason: Pain, Severe (Pain Scale 7-10) Melatonin (Melatonin 3 Mg Tablet) 6 mg PO BEDTIME PRN PRN Reason: Insomnia Last Admin: 02/25/21 22:43 Dose: 6 mg Documented by: SHERRELL Ondansetron HCl (Ondansetron Hcl 4 Mg/2 Ml Vial) 4 mg IVPUSH Q8H PRN PRN Reason: Nausea and Vomiting Last Admin: 02/24/21 22:11 Dose: 4 mg Documented by: TONI Oxycodone HCl (Oxycodone Hcl Immed Release 5 Mg Tablet) 10 mg PO Q6H PRN PRN Reason: Pain, Severe (Pain Scale 7-10) Pharmacy Consult (Consult Rx Perform Med Rec) 1 each MISCELLANE ONCE PRN PRN Reason: Consult order Sodium Chloride (0.9 % Sodium Chloride Flush 3 Ml Syringe) 3 ml IVFLUSH QSHIFT [facility] Last Admin: 02/27/21 09:15 Dose: Not Given Documented by: MCKAY Non-Admin Reason: IV Running Labs CBC & Chem 7: 02/22/21 08:05 02/21/21 08:35 Assessment and Plan (1) Acute gallstone pancreatitis: Status: Acute Assessment and Plan: 30 year old male with acute severe pancraitis, gallstone, elevated LFTS.? Suspect gallstone pancreatitis or possible drug induced, ie gabapentin Acute gallstone pancreatitis repeat CT 02/26, showed no significant change from prior CT scan, No change in acute pancreatitis and surrounding peripancreatic fluid and ascites from most recent exam 02/23/2021. Bilateral pleural effusions and adjacent lower lobe atelectasis or consolidation which appears slightly improved on the right. No organized fluid collection or pancreatic duct dilatation There is gallbladder wall thickening or pericholecystic fluid that appears unchanged. LFTs trended down, lipase normalized Due to persistent changes on CT scan cholecystectomy has been canceled patient has been recommended to have outpatient follow-up with General surgery in 1-2 weeks and to schedule cholecystectomy as outpatient Patient complaining of persistent pain and feels by mouth oxycodone 10 mg is not helping with severe pain therefore will continue with as needed Dilaudid, will repeat LFTs , BMP CBC and lipase at a.m. Recommended Ensure and low-fat diet HTN--BP stable was started on Norvasc due to high blood pressure, will hold Norvasc follow BP Hicups--resolved will continue Baclofen PRN Disposition home when medically stable, case discussed with patient and patient's mom at bedside. Quality Stroke Does the patient have a stroke diagnosis?: No VTE Prior VTE?: No VTE Risk Level:: Medical - low VTE Device Contraindication: Treatment Not Indicated VTE Drug Contraindication: Treatment Not Indicated
[2021-02-27] MEDS: HYDROmorphone HCl 1 MG/ML SYRINGE 0.75 MG IVPUSH (18:15)
[2021-02-27] MEDS: 0.9 % Sodium Chloride Flush 3 ML SYRINGE IVFLUSH (18:16)
[2021-02-27] MEDS: Magnesium Hydrox/Alum Hydrox 30 ML ORAL.SUSP 15 ML PO (20:24)
--- NOTE | 2021-02-27 21:13 | PC.NURSE ---
P patient would like to have IV removed due to pain,refuses to have another one one inserted unless we will needed I Dr. Hart notified E IV removed
[2021-02-27] MEDS: oxyCODONE HCl Immed Release 5 MG TABLET 10 MG PO (22:43)
[2021-02-28] MEDS: oxyCODONE HCl Immed Release 5 MG TABLET 10 MG PO ×2 (03:24→09:19)
[2021-02-28 03:43] VITALS: BP 117/70; PULSE 83; RESP 18; TEMP 36.6; O2SAT 100
[2021-02-28 04:45] VITALS: RESP 18
[2021-02-28 05:41] LABS: MANUAL DIFF FLAG NO
[2021-02-28 05:47] LABS: Basophils Absolute Auto 0.1 X10*3/uL (0.0-0.2); Basophils Percent Auto 0.4 % (0-2); Hematocrit 41.8 % (42.0-52.0); Hemoglobin 13.5 g/dl (14.0-18.0); Imm Gran Abs Auto 0.34 X10*3/uL (0.00-0.03); Imm Gran Pct Auto 2.7 % (0.0-0.4); Lymphocytes Absolute Auto 1.4 X10*3/uL (1.2-4.9); Lymphocytes Percent Auto 11.4 % (20-40); Mean Corpuscular HGB Conc 32.3 g/dl (31.0-36.0); Mean Corpuscular Hemoglobin 26.5 pg (27.0-33.0); Mean Corpuscular Volume 82.1 fL (80.0-98.0); Mean Platelet Volume 10.5 fL (9.4-12.4); Monocytes Absolute Auto 1.1 X10*3/uL (0.1-1.2); Monocytes Percent Auto 8.8 % (2-11); Neutrophils Absolute Auto 9.6 x10*3/uL (2.0-8.3); Neutrophils Percent Auto 76.7 % (45-73); Platelet Count 405 X10*3/uL (160-400); Red Blood Count 5.09 X10*6/uL (4.60-5.80); Red Cell Distribution Width 14.3 % (11.0-16.0); White Blood Count 12.6 X10*3/uL (4.8-10.8)
[2021-02-28 05:59] LABS: Alanine Aminotransferase 44 U/L (0-40); Albumin Level 3.3 g/dL (3.5-5.0); Alkaline Phosphatase 86 U/L (39-117); Anion Gap 15 (12-20); Aspartate Amino Transferase 28 U/L (5-37); Bilirubin Direct 0.4 mg/dL (0.0-0.5); Bilirubin Total 0.6 mg/dL (0.0-1.0); Blood Urea Nitrogen 8 mg/dL (9-16); Calcium 8.5 mg/dL (8.4-10.2); Carbon Dioxide 26 mmol/L (22-29); Chloride 101 mmol/L (96-108); Creatinine Clr Calc Pharmacy 136.9; Estimated Glomerular Filt Rate > 60; Glucose Random 100 mg/dL (60-115); Potassium 4.2 mmol/L (3.3-5.1); Sodium 138 mmol/L (135-145); Total Protein 5.9 g/dL (6.5-8.0)
[2021-02-28 08:00] VITALS: BP 144/81; PULSE 80; RESP 17; TEMP 36.4; O2SAT 98
--- NOTE | 2021-02-28 10:18 | MHC.CM.PN ---
PATIENT IS DISCHARGED HOME - SELF CARE. MOTHER TO PROVIDE TRANSPORT HOME. RN AWARE OF PLAN. PATIENT WILL HAVE TO FOLLOW UP WITH [facility] [facility], THERE IS STILL NO INSURANCE LISTED
--- NOTE | 2021-02-28 12:14 | P.DS_ITS ---
DS: Providers Provider Date of Service: 02/28/21 Date of admission: 02/19/21 11:13 Primary care physician: Unknown Physician Consults: 02/19/21 11:15 Consult to General Surgery Routine Consulting Provider: Matthew Glynn Reason for consultation: acute pancreatitis, abnormal US of gallbldder 02/19/21 17:23 Consult to Gastroenterology Routine Consulting Provider: Molina See Reason for consultation: gallstone pancreatitis, elevated bilirubin DS: Diagnosis Discharge Diagnosis (1) Pancreatitis, acute: Status: Acute DS: Summary Hospital Course Hospital Course: Chief Complaint: Abdominal pain 30 year make with 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 up to 6000 mg a day. He presents with abdominal pain since 3 days, described as epigastric pain that very severe initially intermittent and now persistent, and can't get comfortable in any position, associated with nausea and vomitting. His work up? has revealed severe pancreatitis with Lipase of 12, 376, CT shows pancreatitis, US demonstarate gallstones and diffuse gallbladder wall thickening.? Hospital course 30 year old male admitted with acute severe gallstone pancreatitis , noted to have elevated LFTs normal triglyceride levels, CT scan showed finding suggestive of acute pancreatitis and peripancreatic fluid with ascites and bilateral pleural effusion, patient treated with IV fluids, analgesics and bowel rest , LFTs improved significantly lipase normalized patient was followed closely by General surgery but due to persistent abnormal findings on CT chest cholecystectomy has been planned as outpatient since patient is tolerating diet with significant improvement in abdominal pain he is being discharged home on low-fat diet, oxycodone 10 mg q.6 hours as needed with gradual tapering down he has been recommended to call General surgery in next 7-10 days for outpatient cholecystectomy, patient initially noted to have elevated blood pressure likely due to pain therefore treated with Norvasc, blood pressure significantly improved therefore will hold off on antihypertensive upon discharge. Time Spent with Patient Time attestation: Total time spent providing and/or coordinating discharge services: Discharge coordination time: Greater than 30 minutes Quality: Stroke Does the patient have a stroke diagnosis?: No Physical Exam Vital Signs: Vital Signs: Last Vital Signs Temp 97.5 F 02/28/21 08:00 Pulse 80 02/28/21 08:00 Resp 17 02/28/21 08:00 BP 144/81 H 02/28/21 08:00 Pulse Ox 98 02/28/21 08:00 Body Mass Index 28.2 General awake alert x3,no acute distress.? Neck supple no JVD. CVS? regular rate rhythm, Respiratory lungs clear to auscultation, no respiratory distress, no wheeze, no rhonchi. Gastrointestinal abdomen soft, nontender to palpation,no guarding ,no rigidity, bowel sounds audible Extremities no edema. Neuro nonfocal Skin no rash Appropriate insight DS: Data Data Completed and Pending Labs on day of discharge: Laboratory Results - last 24 hr 02/28/21 02/28/21 05:16 05:16 WBC 12.6 H RBC 5.09 Hgb 13.5 L Hct 41.8 L MCV 82.1 MCH 26.5 L MCHC 32.3 RDW 14.3 Plt Count 405 H D MPV 10.5 Immature Gran % (Auto) 2.7 H Neut % (Auto) 76.7 H Lymph % (Auto) 11.4 L [place] % (Auto) 8.8 Eos % (Auto) 0.0 Baso % (Auto) 0.4 Lymph # (Auto) 1.4 [place] # (Auto) 1.1 Eos # (Auto) 0.0 Baso # (Auto) 0.1 Abs Immat Gran (auto) 0.34 H Absolute Neuts (auto) 9.6 H Absolute Nucleated RBC 0.000 Nucleated RBC % (auto) 0.0 Sodium 138 Potassium 4.2 Chloride 101 Carbon Dioxide 26 Anion Gap 15 BUN 8 L Creatinine 0.80 Estim Creat Clear Calc 136.9 Estimated GFR > 60 Random Glucose 100 Calcium 8.5 D Total Bilirubin 0.6 Direct Bilirubin 0.4 AST 28 D ALT 44 H Alkaline Phosphatase 86 Total Protein 5.9 L Albumin 3.3 L Discharge Plan Discharge Patient Disposition: Home, Self-Care Discharge Diagnosis: Acute gallstone pancreatitis Referrals: Physician,Unknown J [Primary Care Provider] - 1 Week Discharge Medications: New oxycodone 5 mg Tablet 10 mg PO Q6H PRN (Reason: Pain, Severe (Pain Scale 7-10)) Qty: 40 RF: 0 Continued bismuth subsalicylate 525 mg/15 mL Suspension 525 mg PO Q30M PRN (Reason: gi upset) RF: 0 Discontinued ibuprofen 200 mg Tablet 400 mg PO Q6H PRN (Reason: Pain) RF: 0 Discharge Orders: Discharge Order (Routine); Ordered 02/28/21 Ordered By: Saundra Metz Diet: low fat, low cholesterol Activity on Discharge: As tolerated Stand Alone Forms: Patient Portal Discharge page Care Plan Goals: Follow low-fat diet, take oxycodone for pain control follow-up with General surgery in next 7-10 days for cholecystectomy Health Concerns: Take medications as prescribed Plan of Treatment: Outpatient follow-up with primary care physician in next 1-2 weeks and outpatient follow-up with General surgery Dr Matthew Glynn in next 1-2 weeks Assessment: As above Discharge Date/Time: 02/28/21 11:30
== END 2021-02-28 11:30 | disposition home or self-care (01) | DRG 444 ==
LOC: HO.ED 05:17 → HO.EDOVER 11:35 → HO.S3 02-20 06:56
PROVIDERS: Surgery; Admitting Provider Internal Medicine; Emergency Provider Emergency Medicine Emergency Medical Services; Visit Provider Hospitalist
DX: K80.80 Other cholelithiasis without obstruction (principal); K85.10 Biliary acute pancreatitis without necrosis or infection; F11.11 Opioid abuse, in remission; I10 Essential (primary) hypertension; R06.6 Hiccough; Z20.822 Contact with and (suspected) exposure to COVID-19; Z79.899 Other long term (current) drug therapy
CPT/HCPCS: 36415; 74177; 74181; 76705; 80048; 80053; 80076; 80307; 81003; 82077; 83605; 83690; 84478; 85025; 85027; 87040; 87635; 96361; 96365; 96375; 96376; 99285; J0696; J1170; J1885; J2270; J2405; J2543; Q9967

== ENCOUNTER → 2021-03-19 08:48 | Outpatient (BNVA) | payer MEDICAID, SELFPAY | PROVIDERS: Visit Provider Surgery | DX: K85.90 Acute pancreatitis without necrosis or infection, unspecified (principal) | CPT/HCPCS: 99212 ==

== ENCOUNTER 2021-05-10 09:22 | Outpatient (REF) | payer OTHER, SELFPAY ==
--- NOTE | ~2021-05-10 | CT_ITS ---
EXAMINATION: CT ABDOMEN AND PELVIS WITH CONTRAST CLINICAL INFORMATION: Acute pancreatitis without necrosis or infection COMPARISON: Radius CT scan of the abdomen and pelvis most recent February 2021 TECHNIQUE: Multidetector volumetric images were obtained from the superior aspect of the liver through the pubic symphysis following administration 85 mL of Omnipaque 350 intravenous contrast. Sagittal and coronal reformatted images were obtained on the technologist's workstation. Oral contrast: Yes This CT examination was performed using dose optimization techniques as appropriate, variously including the following: *Automated exposure control *Adjustment of mA and/or kV according to patient size (this includes techniques or standardized protocols for targeted exams where dose is matched to indication/reason for exam; i.e. extremities or head) *Use of iterative reconstruction technique DLP: 288 mGy-cm FINDINGS: LUNG BASES: The visualized lung bases are unremarkable. LIVER, GALLBLADDER, AND BILIARY TREE: The liver is normal in size, shape, and attenuation. No focal hepatic lesion or biliary ductal dilatation is present. The gallbladder is contracted. PANCREAS: Pancreas is normal in size. The pancreas enhances normally. There is a small amount of fluid and fat stranding seen adjacent to the tail the pancreas, along the gastric splenic ligament and under the left hemidiaphragm questionable for changes from pancreatitis. This appears significantly improved from February 2021 exam. SPLEEN: Unremarkable. ADRENAL GLANDS: Unremarkable. KIDNEYS AND URETERS: The kidneys are normal in size, shape, and attenuation. No hydronephrosis, hydroureter, or calculi seen. No perinephric stranding. BLADDER: Unremarkable. GASTROINTESTINAL TRACT: There is stool throughout the colon questionable for constipation. The small and large bowel are otherwise unremarkable. The appendix is unremarkable. ABDOMINAL WALL: No significant hernia is appreciated. LYMPH NODES: Normal. VASCULAR: There are left upper quadrant varices. The splenic vein is patent. PELVIC VISCERA: Unremarkable. OSSEOUS STRUCTURES: Unremarkable. CT/CT abdomen pelvis w con IMPRESSION: Normal-appearing pancreas. Minimal fat stranding and small amount of fluid adjacent to the tail the pancreas, in the gastrosplenic ligament and under the left hemidiaphragm probably related to changes from pancreatitis. This is significantly improved from February 2021 exam. Fleischner guidelines were followed.
[2021-05-10] MEDS: iohexoL 350 MG/ML 100 ML INFUS..BTL IV (09:55)
== END 2021-05-10 09:23 | disposition home or self-care (01) ==
LOC: HO.CT 09:22
PROVIDERS: Visit Provider Surgery
DX: K85.90 Acute pancreatitis without necrosis or infection, unspecified (principal)
CPT/HCPCS: 74177; Q9967

== ENCOUNTER → 2021-05-17 14:49 | Outpatient (BNVA) | payer OTHER, SELFPAY | PROVIDERS: PCP Internal Medicine; Referring Provider Internal Medicine; Visit Provider Surgery | DX: K85.90 Acute pancreatitis without necrosis or infection, unspecified (principal) | CPT/HCPCS: 99212 ==

== ENCOUNTER 2022-03-13 21:37 | Emergency (ER) | payer OTHER, SELFPAY ==
[2022-03-13 21:46] VITALS: BP 149/100; PULSE 82; RESP 16; TEMP 37.1; O2SAT 97; BMI 28.1
--- NOTE | 2022-03-13 22:03 | ED_ITS ---
HPI - Recheck/Abnormal Lab/Rx General Chief Complaint: Recheck/Abnormal Lab/Rx Stated Complaint: Medical Clearance Time Seen by Provider: 03/13/22 22:03 Source: patient Mode of arrival: ambulatory Limitations: no limitations History of Present Illness HPI narrative: 31-year-old male presents to the emergency department to test his urine for Suboxone complaint: other (Lab request) Symptoms since prior visit: no new symptoms Associated symptoms: none Related Data Home Medications Medication Instructions Recorded Confirmed bismuth subsalicylate 525 mg/15 mL 525 mg PO Q30M PRN gi upset 02/19/21 05/17/21 oral suspension Previous Rx's Medication Instructions Recorded oxycodone 5 mg tablet 10 mg PO Q6H PRN Pain, Severe 02/28/21 (Pain Scale 7-10) #40 tabs Allergies Allergy/AdvReac Type Severity Reaction Status Date / Time No Known Allergies Allergy Verified 05/17/21 14:58 [No Known Allergies*] Review of Systems Review of Systems: Constitutional: No Fever, No Chills Cardiovascular: No Chest Pain, No SOB Respiratory: No Cough, No Sputum Skin: No Skin Lesions, No rash Psych: No Anxiety, No Depression, No SI/HI/AH/VH Yes all other systems are reviewed and are negative PMFSH Past Medical History Attestation statement: The following information was validated with the patient. Source: old records reviewed Medical History Acute pancreatitis HTN (hypertension) Surgical History History of ankle surgery Social History Social History Household Members: Family Housing: Apartment Do you presently have visiting nurse or other home services: No Patient Tobacco Use Status: Never used Tobacco Substance Use Type: Former Substance User Advance Directives: No Advance Directives Information Provided: No service: No Current occupational status: employed Physical Exam Vital Signs: Vital Signs: Last Vital Signs Temp 98.7 F 03/13/22 21:46 Pulse 82 03/13/22 21:46 Resp 16 03/13/22 21:46 BP 149/100 H 03/13/22 21:46 Pulse Ox 97 11/30/22 21:46 O2 Del Method 03/13/22 21:46 BMI result Body Mass Index 28.1 Appearance: Alert. Oriented X3. No acute distress. Eyes: Pupils equal, round and reactive to lightl. Neck: Normal inspection. CVS: Normal heart rate and rhythm. Respiratory: No respiratory distress. Skin: Normal skin color. Extremities: Gait well balanced well coordinated. Neuro: Cranial nerves 2-12 intact. Course Course Course Narrative: 31-year-old male presents for lab request. States that he would like his urine tested for Suboxone because he tested positive at work. I did inform patient that this is not a medical emergency, and that there is a properly chain of command for drug tests. This [employer] and electronic funds transfer coordinator gave a list of laboratories that would test his urine for illicit substances. Patient does not have any physical complaints. Patient's request was declined by this [employer]. MDM - Recheck/Abnormal Lab/Rx MDM Narrative Medical decision making narrative: Lab request Medical Records Attestation: I reviewed the patient's medical records. Discharge Plan Discharge Clinical Impression: Normal exam Patient Disposition: Home, Self-Care Instructions: Normal Exam (ED) Additional Instructions: You presented to the emergency department requesting a urinalysis for Suboxone. Please present to your local [facility] or detox facility for this request. Your request is not a medical emergency. Thank you for choosing this emergency department for evaluation. Please follow-up with primary care physician as needed. Return to the emergency department for any new, concerning, or worsening symptoms. Prescriptions: No Action bismuth subsalicylate 525 mg/15 mL Suspension 525 mg PO Q30M PRN (Reason: gi upset) oxycodone 5 mg Tablet 10 mg PO Q6H PRN (Reason: Pain, Severe (Pain Scale 7-10)) Qty: 40 0RF Rx Instructions: take oxycodone 10mg by mouth every 6 hours as needed for next 2-3 days, gradually reduced to 5 mg every 6-8 hours as needed when pain gets better.
--- NOTE | 2022-03-13 22:05 | PC.NURSE ---
PT requesting specialist drug test to give to rehab housing. SAVANNA Deleon notified, PA seen pt.
== END 2022-03-13 22:21 | disposition home or self-care (01) ==
LOC: HO.ED 22:07
PROVIDERS: Emergency Provider Internal Medicine
DX: F11.20 Opioid dependence, uncomplicated (principal)
CPT/HCPCS: 99282

== ENCOUNTER 2022-06-12 20:18 | Inpatient (IN) | payer OTHER, SELFPAY ==
--- NOTE | ~2022-06-12 | CT_ITS ---
EXAMINATION: CT ABDOMEN AND PELVIS WITH CONTRAST CLINICAL INFORMATION: Left-sided abdominal pain COMPARISON: 05/10/2021 TECHNIQUE: Multidetector volumetric images were obtained from the superior aspect of the liver through the pubic symphysis following administration 85 mL of Omnipaque 350 intravenous contrast. Sagittal and coronal reformatted images were obtained on the technologist's workstation. Oral contrast: No This CT examination was performed using dose optimization techniques as appropriate, variously including the following: *Automated exposure control *Adjustment of mA and/or kV according to patient size (this includes techniques or standardized protocols for targeted exams where dose is matched to indication/reason for exam; i.e. extremities or head) *Use of iterative reconstruction technique DLP: 523 mGy-cm FINDINGS: LUNG BASES: Dependent atelectasis. LIVER, GALLBLADDER, AND BILIARY TREE: The liver is normal in size, shape, and attenuation. No focal hepatic lesion or biliary ductal dilatation is present. Gallbladder appears somewhat contracted. PANCREAS: There is moderate peripancreatic stranding, suspicious for pancreatitis. SPLEEN: Mildly enlarged. ADRENAL GLANDS: Unremarkable. KIDNEYS AND URETERS: Bilateral nephrograms are symmetric. No hydronephrosis or obstructing calculus identified. BLADDER: Mildly distended and grossly unremarkable. GASTROINTESTINAL TRACT: No evidence of bowel obstruction or significant wall thickening. The appendix is unremarkable. No free air is seen. ABDOMINAL WALL: No significant hernia is appreciated. LYMPH NODES: Normal. VASCULAR: Unremarkable. PELVIC VISCERA: Unremarkable. OSSEOUS STRUCTURES: Unremarkable. CT/CT abdomen pelvis w IV con IMPRESSION: 1. Moderate peripancreatic stranding, suspicious for pancreatitis. Correlation with laboratory values is recommended. 2. Mild splenomegaly.
--- NOTE | ~2022-06-12 | US_ITS ---
EXAMINATION: US ABDOMEN LIMITED CLINICAL INFORMATION: The right upper quadrant pain. COMPARISON: CT 05/10/2021 TECHNIQUE: Real-time imaging of the right upper quadrant abdominal viscera. FINDINGS: PANCREAS: Obscured by overlying bowel gas. LIVER: The liver is normal in size. The liver contour is normal. There is diffusely increased liver parenchymal echogenicity, consistent with hepatic steatosis. No focal hepatic lesion. There is no intrahepatic biliary duct dilatation seen. GALLBLADDER: The gallbladder appears contracted and contains gallstones. Questionable adenomyomatosis. Gallbladder wall thickness appears within normal limits. No appreciable pericholecystic fluid. COMMON BILE DUCT: Normal in caliber measuring 0.3 cm in diameter. RIGHT KIDNEY: No hydronephrosis. No renal calculi or focal parenchymal lesions. The kidney measures 10.8 cm in maximum dimension. FREE FLUID: None. US/US abdomen limited IMPRESSION: 1. Cholelithiasis without additional findings of cholecystitis. 2. Hepatic steatosis.
[2022-06-12 20:28] VITALS: BP 167/94; PULSE 75; O2SAT 98
[2022-06-12 20:30] VITALS: BP 134/78; PULSE 72; RESP 16; TEMP 36.9; O2SAT 97; BMI 29.7
[2022-06-12] MEDS: Ketorolac Tromethamine 30 MG/ML VIAL IVPUSH (21:14)
[2022-06-12] MEDS: ondansetron HCL 4 MG/2 ML VIAL IVPUSH (21:14)
--- NOTE | 2022-06-12 21:14 | ED.ABDPAIN ---
HPI - Abdominal Pain General Chief Complaint: Abdominal Pain Stated Complaint: abd pain Time Seen by Provider: 06/12/22 20:38 History of Present Illness HPI narrative: Patient is a 31-year-old male presents today with having abdominal pain. Mainly over the left side. It was sudden in onset. Similar to previous bouts of pancreatitis. Patient denies any alcohol use. After previous bouts of possible gallstone pancreatitis patient's gallbladder was never removed. Patient denies any fever chills. Was given some medication on the ambulance subsequently symptom was improved. Patient claims the pain is almost gone at this point. Still some mild nausea. Passing gas. No history of obstructions in the past. No chest pain or shortness of breath no diaphoresis. No history of kidney stone. Patient from home. Related Data Home Medications Medication Instructions Recorded Confirmed bismuth subsalicylate 525 mg/15 mL 525 mg PO Q30M PRN gi upset 02/19/21 05/17/21 oral suspension Previous Rx's Medication Instructions Recorded oxycodone 5 mg tablet 10 mg PO Q6H PRN Pain, Severe 02/28/21 (Pain Scale 7-10) #40 tabs Allergies Allergy/AdvReac Type Severity Reaction Status Date / Time No Known Allergies Allergy Verified 06/12/22 20:37 [No Known Allergies*] Review of Systems Review of Systems Positive abdominal pain Yes all other systems are reviewed and are negative PMFSH Past Medical History Attestation statement: The following information was validated with the patient. Medical History Acute pancreatitis HTN (hypertension) Surgical History History of ankle surgery Social History Social History Household Members: Family Housing: Apartment Do you presently have visiting nurse or other home services: No Patient Tobacco Use Status: Never used Tobacco Substance Use Type: Former Substance User Advance Directives: No Advance Directives Information Provided: No service: No Current occupational status: employed Physical Exam ED Vital Signs: Vital Signs - 24 hr 06/12/22 20:30 06/12/22 23:34 Temperature 98.4 F 98.1 F Pulse Rate 72 61 Respiratory Rate 16 14 Blood Pressure 134/78 135/77 Pulse Oximetry 97 97 Oxygen Delivery Method Room Air Room Air BMI result Body Mass Index 29.7 Appearance: Alert. Oriented X3. No acute distress. Eyes: Pupils equal, round and reactive to light. ENT: Pharynx normal. Neck: Normal inspection. Neck supple. No lymph nodes noted. No crepitus CVS: Normal heart rate and rhythm. Pulses normal. Normal S1 and S2 Respiratory: No respiratory distress. Breath sounds normal. No Wheezing. No rales Abdomen: Positive abdominal pain in the epigastric area Skin: Skin warm and dry. Normal skin color. Normal skin turgor. Extremities: No lower extremity edema. Neurovascular intact to all extremities. No Lacerations. No Rash Neuro: Oriented X 3. No motor deficit. No sensory deficit. Moving all extermities. No slurred speech Medical Decision Making Medical Decision Making [facility] Narrative: Patient has abdominal pain mainly over the epigastric area. Likely secondary to pancreatitis. Differential also includes gastritis versus obstruction versus abscess versus perforation. Patient's LFTs slightly elevated. Patient's ultrasound consistent with having gallstones. No evidence for cholecystitis. CT scan of the abdomen pelvis showed evidence for pancreatitis patient's lipase elevated consistent with pancreatitis. No obstruction no abscess no perforation. Patient pain is controlled. Will admit for further evaluation of gallstone pancreatitis. Patient's case discussed with the surgeons Dr. Daigle. Will admit patient for further evaluation. Differential Diagnosis Differential Diagnoses: The differential diagnosis associated with the presentation includes Obstruction abscess perforation pancreatitis gastritis Consult Healthcare Provider General surgery Lab Data [facility] Lab Attestation statement: I reviewed the patient's lab results. 06/12/22 21:34 06/12/22 21:34 Labs: Lab Results 06/12/22 06/12/22 06/12/22 Range/Units 21:23 21:34 21:34 WBC 6.1 (4.8-10.8) X10*3/uL RBC 4.90 (4.60-5.80) X10*6/uL Hgb 14.8 (14.0-18.0) g/dl Hct 43.0 (42.0-52.0) % MCV 87.8 (80.0-98.0) fL MCH 30.2 (27.0-33.0) pg MCHC 34.4 (31.0-36.0) g/dl RDW 12.0 (11.0-16.0) % Plt Count 231 D (160-400) X10*3/uL MPV 10.4 (9.4-12.4) fL Immature Gran % (Auto) 0.3 (0.0-0.4) % Neut % (Auto) 83.9 H (45-73) % Lymph % (Auto) 6.7 L (20-40) % [place] % (Auto) 8.5 (2-11) % Eos % (Auto) 0.3 (0-4) % Baso % (Auto) 0.3 (0-2) % Lymph # (Auto) 0.4 L (1.2-4.9) X10*3/uL [place] # (Auto) 0.5 (0.1-1.2) X10*3/uL Eos # (Auto) 0.0 (0.0-0.4) X10*3/uL Baso # (Auto) 0.0 (0.0-0.2) X10*3/uL Abs Immat Gran (auto) 0.02 (0.00-0.03) X10*3/uL Absolute Neuts (auto) 5.1 (2.0-8.3) x10*3/uL Absolute Nucleated RBC 0.000 (0.0-0.012) X10*3/uL Nucleated RBC % (auto) 0.0 (0.0-0.2) /100WBC Sodium 143 (135-145) mmol/L Potassium 4.1 (3.3-5.1) mmol/L Chloride 108 (96-108) mmol/L Carbon Dioxide 27 (22-29) mmol/L Anion Gap 12 (12-20) BUN 6 L (9-16) mg/dL Creatinine 0.69 (0.5-1.4) mg/dL Estim Creat Clear Calc 161.1 Estimated GFR > 60 Random Glucose 94 (60-115) mg/dL Calcium 8.5 (8.4-10.2) mg/dL Total Bilirubin 4.0 H (0.0-1.0) mg/dL Direct Bilirubin 2.5 H (0.0-0.5) mg/dL AST 220 H (5-37) U/L ALT 199 H (0-40) U/L Alkaline Phosphatase 138 H (39-117) U/L Total Protein 6.2 L (6.5-8.0) g/dL Albumin 3.9 (3.5-5.0) g/dL Lipase 1778 H (8-78) U/L Urine Color Dark Yellow Urine Appearance Clear Urine pH 5.5 (5.0-9.0) Ur Specific [place] 1.025 (1.005-1.025) Urine Protein Trace (Neg-Trace) mg/dL Urine Glucose (UA) Negative (Negative) mg/dL Urine Ketones Negative (Negative) mg/dL Urine Blood Negative (Negative) Urine Nitrite Positive H (Negative) Ur Leukocyte Esterase Small (1+) H (Negative) Urine RBC 0-2 (0-2) /HPF Urine WBC 0-5 (0-5) /HPF Ur Squamous Epith Cells 0-2 (0-2) /HPF Calcium Oxalate Crystal Present Urine Bacteria None Seen (None Seen) Hyaline Casts 0-2 (0-2) /LPF Radiology Impression Discussion of test interpretation with radiology: I have reviewed the radiologist's reading. External Record Review External record reviewed: Inpatient record and Office record Medications Administered Discontinued Medications Generic Name Dose Route Start Last Admin Trade Name Freq PRN Reason Stop Dose Admin Sodium Chloride 1,000 mls @ 999 mls/hr 06/12/22 21:00 06/12/22 21:16 Ns IV 06/12/22 22:00 999 mls/hr .Q1H1M LARON Administration Iohexol 100 ml 06/12/22 22:42 06/12/22 22:43 Iohexol 350 Mg/Ml 100 Ml Infus..Btl IV 06/12/22 22:43 85 ml ONCE ONE Administration Ketorolac Tromethamine 30 mg 06/12/22 20:53 06/12/22 21:14 Ketorolac Tromethamine 30 Mg/Ml Vial IVPUSH 06/12/22 20:54 30 mg ONCE ONE Administration Ondansetron HCl 4 mg 06/12/22 20:53 06/12/22 21:14 Ondansetron Hcl 4 Mg/2 Ml Vial IVPUSH 06/12/22 20:54 4 mg ONCE ONE Administration Discharge Plan Discharge Clinical Impression: Acute gallstone pancreatitis Patient Disposition: Admitted As Inpatient Prescriptions: No Action bismuth subsalicylate 525 mg/15 mL Suspension 525 mg PO Q30M PRN (Reason: gi upset) oxycodone 5 mg Tablet 10 mg PO Q6H PRN (Reason: Pain, Severe (Pain Scale 7-10)) Qty: 40 0RF Rx Instructions: take oxycodone 10mg by mouth every 6 hours as needed for next 2-3 days, gradually reduced to 5 mg every 6-8 hours as needed when pain gets better.
[2022-06-12] MEDS: 0.9 % Sodium Chloride 1,000 ML 999 ML IV (21:16)
[2022-06-12 21:37] LABS: Appearance Urine Clear; Color Urine Dark Yellow; Glucose Urine UA Negative (Negative); Leukocyte Esterase Urine Small (1+) (Negative); Nitrite Urine Positive (Negative); PH 5.5 (5.0-9.0); Specific Gravity - Urine 1.025 (1.005-1.025); UMIC TRIGGER UACC YES; Urine Blood Negative (Negative); Urine Ketones Negative (Negative); Urine Protein Trace mg/dL (Neg-Trace)
[2022-06-12 21:38] LABS: MANUAL DIFF FLAG NO
[2022-06-12 21:39] LABS: Basophils Percent Auto 0.3 % (0-2); Eosinophils Percent Auto 0.3 % (0-4); Hemoglobin 14.8 g/dl (14.0-18.0); Imm Gran Abs Auto 0.02 X10*3/uL (0.00-0.03); Imm Gran Pct Auto 0.3 % (0.0-0.4); Lymphocytes Absolute Auto 0.4 X10*3/uL (1.2-4.9); Lymphocytes Percent Auto 6.7 % (20-40); Mean Corpuscular HGB Conc 34.4 g/dl (31.0-36.0); Mean Corpuscular Hemoglobin 30.2 pg (27.0-33.0); Mean Corpuscular Volume 87.8 fL (80.0-98.0); Mean Platelet Volume 10.4 fL (9.4-12.4); Monocytes Absolute Auto 0.5 X10*3/uL (0.1-1.2); Monocytes Percent Auto 8.5 % (2-11); Neutrophils Absolute Auto 5.1 x10*3/uL (2.0-8.3); Neutrophils Percent Auto 83.9 % (45-73); Platelet Count 231 X10*3/uL (160-400); White Blood Count 6.1 X10*3/uL (4.8-10.8)
[2022-06-12 21:46] LABS: Bacteria Urine None Seen (None Seen); Calcium Oxalate Crystals Urine Present; Hyaline Casts Urine 0-2 /LPF (0-2); RBC Urine 0-2 /HPF (0-2); Squamous Epithelial Cell Urine 0-2 /HPF (0-2); UACC Culture Trigger YES; WBC Urine 0-5 /HPF (0-5)
[2022-06-12 22:01] LABS: Alanine Aminotransferase 199 U/L (0-40); Albumin Level 3.9 g/dL (3.5-5.0); Alkaline Phosphatase 138 U/L (39-117); Anion Gap 12 (12-20); Aspartate Amino Transferase 220 U/L (5-37); Bilirubin Direct 2.5 mg/dL (0.0-0.5); Blood Urea Nitrogen 6 mg/dL (9-16); Calcium 8.5 mg/dL (8.4-10.2); Carbon Dioxide 27 mmol/L (22-29); Chloride 108 mmol/L (96-108); Creatinine Clr Calc Pharmacy 161.1; Estimated Glomerular Filt Rate > 60; Glucose Random 94 mg/dL (60-115); Potassium 4.1 mmol/L (3.3-5.1); Sodium 143 mmol/L (135-145); Total Protein 6.2 g/dL (6.5-8.0)
[2022-06-12 22:12] LABS: Lipase 1778 U/L (8-78)
[2022-06-12] MEDS: iohexoL 350 MG/ML 100 ML INFUS..BTL IV (22:43)
[2022-06-12 23:34] VITALS: BP 135/77; PULSE 61; RESP 14; TEMP 36.7; O2SAT 97
[2022-06-13] VITALS (9 sets, daily range): BP systolic 129–160; BP diastolic 76–103; PULSE 50–86; RESP 14–18; TEMP 36.5–36.9; O2SAT 96–97
--- NOTE | 2022-06-13 00:01 | P.HPGS_ITS ---
History of Present Illness History of Present Illness Date of Service: 06/13/22 Chief complaint: Gallstone Pancreatitis Narrative: Justin Shay is a 31 year old male Presenting with complaints of abdominal pain in the epigastrium and right upper quadrant beginning yesterday. The pain was associated with nausea, fever and chills. He had a previous episode of similar pain in February 2021 and was determined to have gallstone pancreatitis. Initially the plan was to proceed with a laparoscopic cholecystectomy however as symptoms improved he decided to avoid surgery at that time. He now returns with tenderness in the right upper quadrant and epigastrium. Laboratories revealed elevated bilirubin, transaminases, alkaline phosphatase and lipase levels. Findings are consistent with a gallstone pancreatitis. Repeat studies this morning revealed decrease in the liver function tests suggestive of a passed stone. I recommended proceeding with laparoscopic cholecystectomy once the pancreatitis has resolved possibly early next week. He agrees with the plan therefore he will be admitted to the surgical service for IV hydration and be kept NPO. The liver functions and lipase levels will be trended. Will tentatively schedule him for the OR on Friday. Review of Systems Review of Systems: Yes all other systems are reviewed and are negative Constitutional: Constitutional: Reports chills, Reports fever(s), Denies headache(s), Reports poor appetite and Denies weakness ENT: Denies headache(s) Cardiovascular: Cardiovascular: Denies chest pain, Denies irregular heart rhythm, Denies palpitations and Denies dyspnea Respiratory: Respiratory: Denies cough, Denies excessive phlegm production and Denies dyspnea Gastrointestinal: Gastrointestinal: Reports abdominal pain, Denies bloating, Denies change in bowel habits, Denies constipation, Denies heartburn, Denies diarrhea, Reports nausea and Denies vomiting Genitourinary: Genitourinary: Denies difficulty urinating and Denies urinary frequency Musculoskeletal: Musculoskeletal: Denies back pain, Denies muscle weakness and Denies numbness Integumentary/Breasts: Skin/Breast: Denies changing lesions and Denies unusual bruising Neurologic: Denies headache(s), Denies numbness, Denies paresthesias and Denies weakness Psychiatric: Psychiatric: Denies anxiety and Denies depression Endocrine: Endocrine: Denies palpitations Hematologic/Lymphatic: Hematologic/Lymphatic: Denies lymphadenopathy [facility] Past Medical History Medical History Acute pancreatitis HTN (hypertension) Surgical History Surgical History History of ankle surgery Social History Social History Household Members: Family Housing: Apartment Do you presently have visiting nurse or other home services: No Alcohol intake: former Patient Tobacco Use Status: Never used Tobacco Smoked in Last 30 Days: Yes Use of substances other than those prescribed or required for medical reasons: No Substance Use Type: Former Substance User Advance Directives: No Advance Directives Information Provided: No service: No Current occupational status: employed Meds Allergies Allergy/AdvReac Type Severity Reaction Status Date / Time No Known Allergies Allergy Verified 06/12/22 20:37 [No Known Allergies*] Home Medications Medication Instructions Recorded Confirmed Last Taken Type bismuth subsalicylate 525 mg/15 mL 525 mg PO Q30M PRN gi upset 02/19/21 05/17/21 02/19/21 History oral suspension gabapentin 600 mg tablet 1 tab PO TID 06/13/22 Unknown History lisinopril 10 mg tablet 1 tab PO DAILY 06/13/22 Unknown History Physical Exam Vital Signs: Vital Signs: Last Vital Signs Temp 98.1 F 06/12/22 23:34 Pulse 61 06/12/22 23:34 Resp 14 06/12/22 23:34 BP 135/77 06/12/22 23:34 Pulse Ox 97 06/12/22 23:34 O2 Del Method 06/12/22 23:34 BMI result Body Mass Index 29.7 Const: General: cooperative and no acute distress Nutritional Appearance: well nourished Orientation/consciousness: patient oriented x3 Limitations: no limitations HEENT: Head: Yes normocephalic and Yes atraumatic Ears: hearing grossly normal bilaterally Eyes: Sclerae: sclerae normal Resp: Effort & Inspection: normal respiratory effort, no audible wheezes, no cough and no respiratory distress Cardio: Jugular venous distension: no JVD GI: Inspection: Yes normal to inspection Palpation (GI): Soft to palpation, Tenderness to palpation present (GI) in the epigastrum and in the RUQ; Su's sign negative, no guarding, not rigid and No hepatosplenomegaly present Percussion: Yes normal to percussion Auscultation: normal bowel sounds Rectal Exam - Male: Yes deferred Skin: Other: Warm, dry, no rash Neuro: General: patient oriented x3 Extrem: General: Yes no clubbing, cyanosis or edema Results Results Labs: Short CBC 06/12/22 Range/Units 21:34 WBC 6.1 (4.8-10.8) X10*3/uL Hgb 14.8 (14.0-18.0) g/dl Hct 43.0 (42.0-52.0) % Plt Count 231 D (160-400) X10*3/uL BMP 06/12/22 21:34 Sodium 143 Potassium 4.1 Chloride 108 Carbon Dioxide 27 BUN 6 L Creatinine 0.69 Calcium 8.5 Liver Function 06/12/22 Range/Units 21:34 Total Bilirubin 4.0 H (0.0-1.0) mg/dL Direct Bilirubin 2.5 H (0.0-0.5) mg/dL AST 220 H (5-37) U/L ALT 199 H (0-40) U/L Alkaline Phosphatase 138 H (39-117) U/L Albumin 3.9 (3.5-5.0) g/dL Urine 06/12/22 Range/Units 21:23 Urine Color Dark Yellow Urine Appearance Clear Urine pH 5.5 (5.0-9.0) Ur Specific [place] 1.025 (1.005-1.025) Urine Protein Trace (Neg-Trace) mg/dL Urine Glucose (UA) Negative (Negative) mg/dL Assessment and Plan (1) Acute gallstone pancreatitis: Status: Acute Plan Patient has a recurrent episode of acute gallstone pancreatitis. The repeat laboratories this morning seemed indicate improvement in the liver function tests suggestive of a passed gallstone. I will trend his liver function and lipase levels. He will be kept NPO with IV fluids and would Anticipate laparoscopic cholecystectomy once the pancreatitis has resolved. He expressed understanding and agrees with the plan. Time Spent With Patient Time: Total time managing care of this patient today ____ minutes. Quality Stroke Does the patient have a stroke diagnosis?: No VTE Prior VTE?: No VTE Risk Level:: Surgical - low VTE Device Contraindication: N/A - Device Ordered VTE Drug Contraindication: Treatment Not Indicated Procedures Date of Service Date of Service: 06/13/22
[2022-06-13] MEDS: HYDROmorphone HCl 0.5 MG/0.5 ML SYRINGE IVPUSH ×7 (01:13→23:20)
[2022-06-13] MEDS: Dextrose 5 % and Lactated Ring 1,000 ML 125 ML IVCONT ×3 (01:14→17:43)
[2022-06-13] MEDS: 0.9 % Sodium Chloride Flush 3 ML SYRINGE IVFLUSH (01:15)
[2022-06-13 04:51] LABS: MANUAL DIFF FLAG NO
[2022-06-13 04:52] LABS: Basophils Percent Auto 0.5 % (0-2); Eosinophils Absolute Auto 0.1 X10*3/uL (0.0-0.4); Eosinophils Percent Auto 1.5 % (0-4); Hematocrit 40.4 % (42.0-52.0); Imm Gran Abs Auto 0.02 X10*3/uL (0.00-0.03); Imm Gran Pct Auto 0.5 % (0.0-0.4); Lymphocytes Absolute Auto 1.1 X10*3/uL (1.2-4.9); Lymphocytes Percent Auto 26.2 % (20-40); Mean Corpuscular HGB Conc 34.7 g/dl (31.0-36.0); Mean Corpuscular Hemoglobin 30.4 pg (27.0-33.0); Mean Corpuscular Volume 87.6 fL (80.0-98.0); Mean Platelet Volume 10.7 fL (9.4-12.4); Monocytes Absolute Auto 0.4 X10*3/uL (0.1-1.2); Monocytes Percent Auto 8.7 % (2-11); Neutrophils Absolute Auto 2.6 x10*3/uL (2.0-8.3); Neutrophils Percent Auto 62.6 % (45-73); Platelet Count 228 X10*3/uL (160-400); Red Blood Count 4.61 X10*6/uL (4.60-5.80); White Blood Count 4.1 X10*3/uL (4.8-10.8)
[2022-06-13 05:29] LABS: Alanine Aminotransferase 214 U/L (0-40); Albumin Level 3.7 g/dL (3.5-5.0); Alkaline Phosphatase 144 U/L (39-117); Anion Gap 12 (12-20); Aspartate Amino Transferase 147 U/L (5-37); Bilirubin Direct 0.5 mg/dL (0.0-0.5); Bilirubin Total 1.4 mg/dL (0.0-1.0); Blood Urea Nitrogen 5 mg/dL (9-16); Calcium 8.3 mg/dL (8.4-10.2); Carbon Dioxide 28 mmol/L (22-29); Chloride 107 mmol/L (96-108); Creatinine Clr Calc Pharmacy 161.1; Estimated Glomerular Filt Rate > 60; Glucose Random 101 mg/dL (60-115); Sodium 143 mmol/L (135-145); Total Protein 5.8 g/dL (6.5-8.0)
[2022-06-13] MEDS: oxyCODONE HCl Immed Release 5 MG TABLET PO ×2 (05:47→17:43)
[2022-06-13 06:08] LABS: COVID-19 Test Negative (Negative); IDNOW Serial# 6674DD1D
--- NOTE | 2022-06-13 08:45 | HE.PHANOTE ---
RE METHADONE 45MG (GIVEN TAKE HOME BOTTLES UNTIL 06/13/22) [facility]
[2022-06-13] MEDS: methADONE HCl 20 MG/2 ML ORAL.CONC 45 MG PO (09:11)
--- NOTE | 2022-06-13 09:34 | PHA.MEDREC ---
Pharmacy Consult ? Medication Reconciliation Pharmacy has completed the medication reconciliation. Patient states he's getting methadone 45 qd for a 2 week supply from [facility] in [place]. Says he has one more dose at home.
[2022-06-13] MEDS: ondansetron HCL 4 MG/2 ML VIAL IVPUSH (15:22)
--- NOTE | 2022-06-13 15:50 | PC.NURSE ---
Pt ambulated to restroom independently. Stated when arriving back to room that his pain had increased with the movement.
--- NOTE | 2022-06-13 20:12 | PC.NURSE ---
This television writer assumed care of this Pt at 1900. Pt A&Ox4, reports 12/22 lower mid ABD pain, non radiating. Pt states I was resting on my side, now it started to hurt . Medicated per JUN. IV fluids running. New gown given.
[2022-06-13] MEDS: Acetaminophen 325 MG TABLET 650 MG PO (22:03)
--- NOTE | 2022-06-13 23:06 | MHC.CM.PN ---
CM met with admitted patient with bed assignment pending. A&Ox4. Lives with parents. Employed. No DME. HCP on file-HCP/mother Kimmie Shay ([phone]). PCP retired. New PCP at [facility] in [place]. Methadone-2 week supply 45 mg/daily from [facility] [address] [place] [address] in [facility]. [phone]. Pt has concerns about pain medication, especially post op and his methadone. Discussed with Dr. Watson. Options are to increase his methadone, or take as little medication as necessary for pain. Stressed with patient the need for him to speak with Dr. Daigle about his concerns. Pt may benefit from Addiction Medicine Consult. D/C plan: home without services. Mother to transport home. CM will follow for discharge needs.
[2022-06-13] MEDS: Zolpidem Tartrate 5 MG TABLET PO (23:20)
[2022-06-14] MEDS: Dextrose 5 % and Lactated Ring 1,000 ML 125 ML IVCONT ×3 (00:42→16:45)
--- NOTE | 2022-06-14 02:33 | PC.NURSE ---
Pt reports effectiveness to meds given. Reports able to get sleep. Pt independent with bedside urinal, steady gait.
[2022-06-14 04:08] VITALS: BP 133/96; PULSE 56; RESP 16; TEMP 36.8; O2SAT 97
[2022-06-14 04:13] VITALS: RESP 16
[2022-06-14] MEDS: HYDROmorphone HCl 0.5 MG/0.5 ML SYRINGE IVPUSH ×5 (04:13→21:36)
[2022-06-14 06:22] LABS: Hematocrit 37.3 % (42.0-52.0); Mean Corpuscular HGB Conc 34.9 g/dl (31.0-36.0); Mean Corpuscular Volume 85.9 fL (80.0-98.0); Mean Platelet Volume 10.5 fL (9.4-12.4); Platelet Count 211 X10*3/uL (160-400); Red Blood Count 4.34 X10*6/uL (4.60-5.80); Red Cell Distribution Width 11.7 % (11.0-16.0); White Blood Count 3.9 X10*3/uL (4.8-10.8)
[2022-06-14 06:47] LABS: Alanine Aminotransferase 133 U/L (0-40); Albumin Level 3.3 g/dL (3.5-5.0); Alkaline Phosphatase 122 U/L (39-117); Aspartate Amino Transferase 39 U/L (5-37); Bilirubin Direct 0.3 mg/dL (0.0-0.5); Bilirubin Total 0.8 mg/dL (0.0-1.0); Lipase 118 U/L (8-78); Total Protein 5.1 g/dL (6.5-8.0)
[2022-06-14] MEDS: methADONE HCl 20 MG/2 ML ORAL.CONC 45 MG PO (07:49)
--- NOTE | 2022-06-14 07:49 | P.PNGS_ITS ---
Subjective Subjective Date of Service: 06/14/22 Interval history: Hospital day 2, gallstone pancreatitis. Patient continues to have upper abdominal pain, somewhat improved. Denies nausea or vomiting. Physical Exam Vital Signs: Vital Signs: Last Vital Signs Temp 98.3 F 06/14/22 04:08 Pulse 56 06/14/22 04:08 Resp 16 06/14/22 04:13 BP 133/96 H 06/14/22 04:08 Pulse Ox 97 06/14/22 04:08 O2 Del Method 06/14/22 04:08 BMI result Body Mass Index 29.7 Const: General: no acute distress and well developed Nutritional Ap pearance: well nourished Orientation/consciousness: patient oriented x3 Limitations: no limitations Resp: Effort & Inspection: normal respiratory effort, no audible wheezes, no cough and no respiratory distress GI: Inspection: Yes normal to inspection Palpation (GI): Soft to palpation, Tenderness to palpation present (GI) in the epigastrum and in the RUQ; Su's sign negative, no guarding and not rigid Neuro: General: patient oriented x3 Extrem: General: Yes no clubbing, cyanosis or edema Objective Data Active Medications Acetaminophen (Acetaminophen 325 Mg Tablet) 650 mg PO Q6H PRN PRN Reason: Pain, Mild (Pain Scale 1-3) Last Admin: 06/13/22 22:03 Dose: 650 mg Documented By: KATERYNA Hydromorphone HCl (Hydromorphone Hcl 0.5 Mg/0.5 Ml Syringe) 0.5 mg IVPUSH Q3H PRN; Protocol PRN Reason: Pain, Severe (Pain Scale 7-10) Last Admin: 06/14/22 04:13 Dose: 0.5 mg Documented By: KATERYNA Dextrose/Lactated Ringer's (D5lr) 1,000 mls @ 125 mls/hr IVCONT .Q8H LARON Last Admin: 06/14/22 00:42 Dose: 125 mls/hr Documented By: KATERYNA Methadone HCl (Methadone Hcl 20 Mg/2 Ml Oral.Conc) 45 mg PO DAILY [facility] Last Admin: 06/13/22 09:11 Dose: 45 mg Documented By: BRUNO-PARIS Ondansetron HCl (Ondansetron Hcl 4 Mg/2 Ml Vial) 4 mg IVPUSH Q8H PRN PRN Reason: Nausea Last Admin: 06/13/22 15:22 Dose: 4 mg Documented By: BRUNO-MURPEYMAN Oxycodone HCl (Oxycodone Hcl Immed Release 5 Mg Tablet) 5 mg PO Q6H PRN PRN Reason: Pain, Moderate (Pain Scale 4-6 Last Admin: 06/13/22 17:43 Dose: 5 mg Documented By: BRANDIE Sodium Chloride (0.9 % Sodium Chloride Flush 3 Ml Syringe) 3 ml IVFLUSH QSHIFT LARON Last Admin: 06/14/22 00:52 Dose: Not Given Documented By: KATERYNA Non-Admin Reason: IV Running Zolpidem Tartrate (Zolpidem Tartrate 5 Mg Tablet) 5 mg PO BEDTIME PRN PRN Reason: Insomnia Last Admin: 06/13/22 23:20 Dose: 5 mg Documented By: KATERYNA Labs 06/14/22 05:46 06/13/22 04:24 Labs: Laboratory Results - last 24 hr 06/14/22 06/14/22 05:46 05:46 MCV 85.9 MCH 30.0 MCHC 34.9 RDW 11.7 Plt Count 211 MPV 10.5 Absolute Nucleated RBC 0.000 Nucleated RBC % (auto) 0.0 Total Bilirubin 0.8 Direct Bilirubin 0.3 AST 39 H ALT 133 H Alkaline Phosphatase 122 H Total Protein 5.1 L Albumin 3.3 L Lipase 118 H Microbiology Microbiology Results: Microbiology 06/12/22 21:47 Urine Culture - Preliminary Urine clean catch - Urine chau top No growth to date. Procedures Date of Service Date of Service: 06/14/22 Progress Note: A&P Assessment and plan (1) Acute gallstone pancreatitis: Status: Acute Plan Overall patient is improved with decreased abdominal pain. Laboratories are improved with normalizing bilirubin and lipase. He continues to have abdominal pain suggestive of pancreatitis. We discussed laparoscopic cholecystectomy or possible open cholecystectomy once the pancreatitis has resolved. He is tentatively scheduled for surgery on Friday06/17/2022. I reviewed the procedure, risks, and alternatives, he consents to the laparoscopic or possible open cholecystectomy. Time Spent With Patient Time: Total time managing care of this patient today ____ minutes. Quality Stroke Does the patient have a stroke diagnosis?: No VTE Prior VTE?: No VTE Risk Level:: Surgical - low VTE Device Contraindication: N/A - Device Ordered VTE Drug Contraindication: Treatment Not Indicated
--- NOTE | 2022-06-14 07:50 | PC.NURSE ---
patient given PRN pain medication. iv site checked for patency. tegaderm changed- iv flushed without difficulty. using bedside urinal. able to make needs known- call wilson within reach
[2022-06-14 08:28] VITALS: BP 140/88; PULSE 75; RESP 16; TEMP 36.9; O2SAT 99
[2022-06-14 13:03] VITALS: BP 154/94; PULSE 70; RESP 18; TEMP 36.8
[2022-06-14] MEDS: ondansetron HCL 4 MG/2 ML VIAL IVPUSH (15:32)
[2022-06-14 16:00] VITALS: BP 140/90; PULSE 73; RESP 18; TEMP 37.1; O2SAT 99
[2022-06-14] MEDS: 0.9 % Sodium Chloride Flush 3 ML SYRINGE IVFLUSH (21:36)
[2022-06-14] MEDS: Zolpidem Tartrate 5 MG TABLET PO (21:48)
[2022-06-15] MEDS: Dextrose 5 % and Lactated Ring 1,000 ML 125 ML IVCONT ×3 (00:27→22:03)
[2022-06-15 04:00] VITALS: BP 130/80; PULSE 66; RESP 18; TEMP 36.2; O2SAT 95
[2022-06-15] MEDS: HYDROmorphone HCl 0.5 MG/0.5 ML SYRINGE IVPUSH ×3 (05:55→21:58)
[2022-06-15 08:00] VITALS: BP 131/76; PULSE 67; RESP 18; TEMP 36.4; O2SAT 96
[2022-06-15] MEDS: methADONE HCl 20 MG/2 ML ORAL.CONC 45 MG PO (08:56)
[2022-06-15] MEDS: ondansetron HCL 4 MG/2 ML VIAL IVPUSH (11:53)
--- NOTE | 2022-06-15 12:57 | P.PNGS_ITS ---
Subjective Subjective Date of Service: 06/15/22 Interval history: doing well feels better, abdo less painful no nausea or vomiting has had a bowel movement Physical Exam Vital Signs: Vital Signs: Last Vital Signs Temp 97.6 F 06/15/22 08:00 Pulse 67 06/15/22 08:00 Resp 18 06/15/22 08:00 BP 131/76 06/15/22 08:00 Pulse Ox 96 06/15/22 08:00 O2 Del Method 06/15/22 08:00 BMI result Body Mass Index 29.7 Const: General: cooperative, healthy appearing, comfortable and no acute distress Resp: Effort & Inspection: normal respiratory effort Auscultation: clear to auscultation bilaterally Cardio: Rate: regular rate Rhythm: regular rhythm GI: Other: abdo - soft nontender nondistended Skin: Other: nonicteric Psych: Appearance: grossly normal Mental Status: mental status grossly normal Speech and movement: Normal speech and movement present Attitude: cooperative Thought process: Normal thought process present Objective Data Active Medications Acetaminophen (Acetaminophen 325 Mg Tablet) 650 mg PO Q6H PRN PRN Reason: Pain, Mild (Pain Scale 1-3) Last Admin: 06/13/22 22:03 Dose: 650 mg Documented By: KATERYNA Hydromorphone HCl (Hydromorphone Hcl 0.5 Mg/0.5 Ml Syringe) 0.5 mg IVPUSH Q3H PRN; Protocol PRN Reason: Pain, Severe (Pain Scale 7-10) Last Admin: 06/15/22 09:04 Dose: 0.5 mg Documented By: BENOIT Dextrose/Lactated Ringer's (D5lr) 1,000 mls @ 125 mls/hr IVCONT .Q8H [facility] Last Admin: 06/15/22 09:03 Dose: 125 mls/hr Documented By: BENOIT Methadone HCl (Methadone Hcl 20 Mg/2 Ml Oral.Conc) 45 mg PO DAILY [facility] Last Admin: 06/15/22 08:56 Dose: 45 mg Documented By: BENOIT Ondansetron HCl (Ondansetron Hcl 4 Mg/2 Ml Vial) 4 mg IVPUSH Q8H PRN PRN Reason: Nausea Last Admin: 06/15/22 11:53 Dose: 4 mg Documented By: BENOIT Oxycodone HCl (Oxycodone Hcl Immed Release 5 Mg Tablet) 5 mg PO Q6H PRN PRN Reason: Pain, Moderate (Pain Scale 4-6 Last Admin: 06/13/22 17:43 Dose: 5 mg Documented By: BRANDIE Sodium Chloride (0.9 % Sodium Chloride Flush 3 Ml Syringe) 3 ml IVFLUSH QSHIFT [facility] Last Admin: 06/15/22 09:04 Dose: Not Given Documented By: BENOIT Non-Admin Reason: IV Running Zolpidem Tartrate (Zolpidem Tartrate 5 Mg Tablet) 5 mg PO BEDTIME PRN PRN Reason: Insomnia Last Admin: 06/14/22 21:48 Dose: 5 mg Documented By: ANGIE Labs 06/14/22 05:46 06/13/22 04:24 Microbiology Microbiology Results: Microbiology 06/12/22 21:47 Urine Culture - Final Urine clean catch - Urine chau top No growth. Procedures Date of Service Date of Service: 06/15/22 Progress Note: A&P Assessment and plan (1) Acute gallstone pancreatitis: Status: Acute Assessment and Plan: 31 yo male doing better clinically and labs improved. keep on clear liquids, i vf, can shower, make npo friday night for lap sandra on friday . Time Spent With Patient Time: Total time managing care of this patient today ____ minutes. Quality Stroke Does the patient have a stroke diagnosis?: No VTE Prior VTE?: No VTE Risk Level:: Surgical - low VTE Device Contraindication: N/A - Device Ordered VTE Drug Contraindication: Treatment Not Indicated
[2022-06-15 15:34] VITALS: BP 137/90; PULSE 63; RESP 16; TEMP 36.1; O2SAT 94
[2022-06-15 19:51] VITALS: BP 144/96; PULSE 66; RESP 18; TEMP 36.3; O2SAT 96
[2022-06-15] MEDS: Zolpidem Tartrate 5 MG TABLET PO (21:58)
[2022-06-15] MEDS: 0.9 % Sodium Chloride Flush 3 ML SYRINGE IVFLUSH (21:59)
[2022-06-16 03:16] VITALS: BP 124/67; PULSE 88; RESP 18; TEMP 36.3; O2SAT 96
[2022-06-16] MEDS: HYDROmorphone HCl 0.5 MG/0.5 ML SYRINGE IVPUSH ×3 (03:44→21:02)
[2022-06-16] MEDS: Dextrose 5 % and Lactated Ring 1,000 ML 125 ML IVCONT ×2 (05:29→12:47)
[2022-06-16] MEDS: methADONE HCl 20 MG/2 ML ORAL.CONC 45 MG PO (07:30)
[2022-06-16 07:36] VITALS: BP 138/80; PULSE 64; RESP 18; TEMP 36.7; O2SAT 98
--- NOTE | 2022-06-16 11:55 | P.PNGS_ITS ---
Subjective Subjective Date of Service: 06/16/22 Interval history: doing well ready for surgery tomorrow Physical Exam Vital Signs: Vital Signs: Last Vital Signs Temp 98.0 F 06/16/22 07:36 Pulse 64 06/16/22 07:36 Resp 18 06/16/22 07:36 BP 138/80 06/16/22 07:36 Pulse Ox 98 06/16/22 07:36 O2 Del Method 06/16/22 07:36 BMI result Body Mass Index 29.7 GI: Other: abdo soft nontender nondistended Objective Data Active Medications Acetaminophen (Acetaminophen 325 Mg Tablet) 650 mg PO Q6H PRN PRN Reason: Pain, Mild (Pain Scale 1-3) Last Admin: 06/13/22 22:03 Dose: 650 mg Documented By: KATERYNA Hydromorphone HCl (Hydromorphone Hcl 0.5 Mg/0.5 Ml Syringe) 0.5 mg IVPUSH Q3H PRN; Protocol PRN Reason: Pain, Severe (Pain Scale 7-10) Last Admin: 06/16/22 03:44 Dose: 0.5 mg Documented By: ANGIE Methadone HCl (Methadone Hcl 20 Mg/2 Ml Oral.Conc) 45 mg PO DAILY [facility] Last Admin: 06/16/22 07:30 Dose: 45 mg Documented By: BENOIT Ondansetron HCl (Ondansetron Hcl 4 Mg/2 Ml Vial) 4 mg IVPUSH Q8H PRN PRN Reason: Nausea Last Admin: 06/15/22 11:53 Dose: 4 mg Documented By: BENOIT Oxycodone HCl (Oxycodone Hcl Immed Release 5 Mg Tablet) 5 mg PO Q6H PRN PRN Reason: Pain, Moderate (Pain Scale 4-6 Last Admin: 06/13/22 17:43 Dose: 5 mg Documented By: BRANDIE Sodium Chloride (0.9 % Sodium Chloride Flush 3 Ml Syringe) 3 ml IVFLUSH QSHIFT [facility] Last Admin: 06/16/22 07:31 Dose: Not Given Documented By: BENOIT Non-Admin Reason: IV Running Zolpidem Tartrate (Zolpidem Tartrate 5 Mg Tablet) 5 mg PO BEDTIME PRN PRN Reason: Insomnia Last Admin: 03/04/23 21:58 Dose: 5 mg Documented By: ANGIE Labs 06/14/22 05:46 06/13/22 04:24 Procedures Date of Service Date of Service: 06/16/22 Progress Note: A&P Assessment and plan (1) Acute gallstone pancreatitis: Status: Acute Plan 31 year old male with gallstone pancreatitis doing better and plan for lap sandra tomorrow. he agrees with plan Time Spent With Patient Time: Total time managing care of this patient today ____ minutes. Quality Stroke Does the patient have a stroke diagnosis?: No VTE Prior VTE?: No VTE Risk Level:: Surgical - low VTE Device Contraindication: N/A - Device Ordered VTE Drug Contraindication: Treatment Not Indicated
[2022-06-16] MEDS: Famotidine 20 MG TABLET PO ×2 (14:44→20:56)
[2022-06-16] MEDS: ondansetron HCL 4 MG/2 ML VIAL IVPUSH (14:45)
[2022-06-16 15:38] VITALS: BP 136/88; PULSE 94; RESP 18; TEMP 36.4; O2SAT 95
[2022-06-16 19:54] VITALS: BP 142/85; PULSE 77; RESP 18; TEMP 36.4; O2SAT 95
[2022-06-16] MEDS: 0.9 % Sodium Chloride Flush 3 ML SYRINGE IVFLUSH (20:56)
[2022-06-16] MEDS: Zolpidem Tartrate 5 MG TABLET PO (21:01)
[2022-06-16] MEDS: Acetaminophen 325 MG TABLET 650 MG PO (21:01)
[2022-06-17] VITALS (14 sets, daily range): BP systolic 112–158; BP diastolic 60–93; PULSE 60–81; RESP 15–20; TEMP 36.4–37.1; O2SAT 92–97
[2022-06-17] MEDS: HYDROmorphone HCl 0.5 MG/0.5 ML SYRINGE IVPUSH ×5 (01:59→21:50)
[2022-06-17 06:27] LABS: Lipase 17 U/L (8-78)
[2022-06-17 06:32] LABS: Alanine Aminotransferase 50 U/L (0-40); Albumin Level 3.9 g/dL (3.5-5.0); Alkaline Phosphatase 114 U/L (39-117); Anion Gap 11 (12-20); Aspartate Amino Transferase 14 U/L (5-37); Blood Urea Nitrogen 4 mg/dL (9-16); Calcium 9.2 mg/dL (8.4-10.2); Carbon Dioxide 31 mmol/L (22-29); Chloride 105 mmol/L (96-108); Creatinine Clr Calc Pharmacy 152.3; Estimated Glomerular Filt Rate > 60; Glucose Random 84 mg/dL (60-115); Potassium 4.4 mmol/L (3.3-5.1); Sodium 143 mmol/L (135-145); Total Protein 5.9 g/dL (6.5-8.0)
[2022-06-17] MEDS: methADONE HCl 20 MG/2 ML ORAL.CONC 45 MG PO (08:45)
[2022-06-17] MEDS: Famotidine 20 MG TABLET PO ×2 (08:45→19:46)
[2022-06-17] MEDS: Lactated Ringers 1,000 ML 80 ML IVCONT ×2 (08:45→19:47)
[2022-06-17] MEDS: 0.9 % Sodium Chloride Flush 3 ML SYRINGE IVFLUSH (08:45)
--- NOTE | 2022-06-17 10:03 | HO.ANESPROP2 ---
HPI - Anesthesia Eval Consult details Narrative: lap chlectomy for gallstone pancreatitis PMFSH Active Problems Active Problems: All Active Problems (Updated 06/12/22 @ 23:55 by Eva Coffey MD) Acute pancreatitis (Acute) Acute gallstone pancreatitis (Acute) Past Medical History Medical History Acute pancreatitis HTN (hypertension) Surgical History Surgical History History of ankle surgery Social History Social History Household Members: Family Housing: Apartment Do you presently have visiting nurse or other home services: No Alcohol intake: former Patient Tobacco Use Status: Current everyday Tobacco user Tobacco use type: Smokeless Tobacco e-Cigarette/Vaping Use: Currently Using Second Hand Smoke Exposure: No Substance Use Type: Former Substance User service: No Current occupational status: employed Meds Allergies Allergy/AdvReac Type Severity Reaction Status Date / Time No Known Allergies Allergy Verified 06/12/22 20:37 [No Known Allergies*] Active Medications: Current Medications Acetaminophen (Acetaminophen 325 Mg Tablet) 650 mg PO Q6H PRN PRN Reason: Pain, Mild (Pain Scale 1-3) Last Admin: 06/16/22 21:01 Dose: 650 mg Famotidine (Famotidine 20 Mg Tablet) 20 mg PO BID [facility] Last Admin: 06/17/22 08:45 Dose: 20 mg Hydromorphone HCl (Hydromorphone Hcl 0.5 Mg/0.5 Ml Syringe) 0.5 mg IVPUSH Q3H PRN; Protocol PRN Reason: Pain, Severe (Pain Scale 7-10) Last Admin: 06/17/22 08:50 Dose: 0.5 mg Lactated Ringer's (Lr) 1,000 mls @ 80 mls/hr IVCONT .[id number] [facility] Last Admin: 06/17/22 08:45 Dose: 80 mls/hr Methadone HCl (Methadone Hcl 20 Mg/2 Ml Oral.Conc) 45 mg PO DAILY [facility] Last Admin: 06/17/22 08:45 Dose: 45 mg Ondansetron HCl (Ondansetron Hcl 4 Mg/2 Ml Vial) 4 mg IVPUSH Q8H PRN PRN Reason: Nausea Last Admin: 06/16/22 14:45 Dose: 4 mg Oxycodone HCl (Oxycodone Hcl Immed Release 5 Mg Tablet) 5 mg PO Q6H PRN PRN Reason: Pain, Moderate (Pain Scale 4-6 Last Admin: 06/13/22 17:43 Dose: 5 mg Sodium Chloride (0.9 % Sodium Chloride Flush 3 Ml Syringe) 3 ml IVFLUSH QSHIFT [facility] Last Admin: 06/17/22 08:45 Dose: 3 ml Zolpidem Tartrate (Zolpidem Tartrate 5 Mg Tablet) 5 mg PO BEDTIME PRN PRN Reason: Insomnia Last Admin: 06/16/22 21:01 Dose: 5 mg Home Medications Medication Instructions Recorded Confirmed Last Taken Type gabapentin 600 mg tablet 600 mg PO TID 06/13/22 06/13/22 06/12/22 History methadone 10 mg/mL oral 45 mg PO DAILY 06/13/22 06/13/22 Unknown History concentrate (Methadone Intensol) Exam Exam Date and Time: June 17, 2022 1003 Height,Weight and Vital Signs: Height 5 ft 7 in Weight 86.183 kg Last Vital Signs Temp 98.6 F 06/17/22 09:31 Pulse 81 06/17/22 09:31 Resp 16 06/17/22 09:31 BP 146/93 H 06/17/22 09:31 Pulse Ox 96 06/17/22 09:31 O2 Del Method 06/17/22 09:31 Pertinent Lab Results Pertinent Lab Results: Laboratory Tests 06/12/22 06/12/22 06/12/22 21:23 21:34 21:34 WBC 6.1 RBC 4.90 Hgb 14.8 Hct 43.0 MCV 87.8 MCH 30.2 MCHC 34.4 RDW 12.0 Plt Count 231 D MPV 10.4 Immature Gran % (Auto) 0.3 Neut % (Auto) 83.9 H Lymph % (Auto) 6.7 L [place] % (Auto) 8.5 Eos % (Auto) 0.3 Baso % (Auto) 0.3 Lymph # (Auto) 0.4 L [place] # (Auto) 0.5 Eos # (Auto) 0.0 Baso # (Auto) 0.0 Abs Immat Gran (auto) 0.02 Absolute Neuts (auto) 5.1 Absolute Nucleated RBC 0.000 Nucleated RBC % (auto) 0.0 Sodium 143 Potassium 4.1 Chloride 108 Carbon Dioxide 27 Anion Gap 12 BUN 6 L Creatinine 0.69 Estim Creat Clear Calc 161.1 Estimated GFR > 60 Random Glucose 94 Calcium 8.5 Total Bilirubin 4.0 H Direct Bilirubin 2.5 H AST 220 H ALT 199 H Alkaline Phosphatase 138 H Total Protein 6.2 L Albumin 3.9 Lipase 1778 H Urine Color Dark Yellow Urine Appearance Clear Urine pH 5.5 Ur Specific [place] 1.025 Urine Protein Trace Urine Glucose (UA) Negative Urine Ketones Negative Urine Blood Negative Urine Nitrite Positive H Ur Leukocyte Esterase Small (1+) H Urine RBC 0-2 Urine WBC 0-5 Ur Squamous Epith Cells 0-2 Calcium Oxalate Crystal Present Urine Bacteria None Seen Hyaline Casts 0-2 COVID-19 ([facility]) COVID-19 Clin Com 06/13/22 06/13/22 06/13/22 04:24 04:24 05:41 WBC 4.1 L RBC 4.61 Hgb 14.0 Hct 40.4 L MCV 87.6 MCH 30.4 MCHC 34.7 RDW 12.0 Plt Count 228 MPV 10.7 Immature Gran % (Auto) 0.5 H Neut % (Auto) 62.6 Lymph % (Auto) 26.2 [place] % (Auto) 8.7 Eos % (Auto) 1.5 Baso % (Auto) 0.5 Lymph # (Auto) 1.1 L [place] # (Auto) 0.4 Eos # (Auto) 0.1 Baso # (Auto) 0.0 Abs Immat Gran (auto) 0.02 Absolute Neuts (auto) 2.6 Absolute Nucleated RBC 0.000 Nucleated RBC % (auto) 0.0 Sodium 143 Potassium 4.0 Chloride 107 Carbon Dioxide 28 Anion Gap 12 BUN 5 L Creatinine 0.69 Estim Creat Clear Calc 161.1 Estimated GFR > 60 Random Glucose 101 Calcium 8.3 L Total Bilirubin 1.4 H Direct Bilirubin 0.5 AST 147 H ALT 214 H Alkaline Phosphatase 144 H Total Protein 5.8 L Albumin 3.7 Lipase Urine Color Urine Appearance Urine pH Ur Specific [place] Urine Protein Urine Glucose (UA) Urine Ketones Urine Blood Urine Nitrite Ur Leukocyte Esterase Urine RBC Urine WBC Ur Squamous Epith Cells Calcium Oxalate Crystal Urine Bacteria Hyaline Casts COVID-19 ([facility]) Negative COVID-19 Clin Com See Note 06/14/22 06/14/22 06/17/22 05:46 05:46 05:20 WBC 3.9 L RBC 4.34 L Hgb 13.0 L Hct 37.3 L MCV 85.9 MCH 30.0 MCHC 34.9 RDW 11.7 Plt Count 211 MPV 10.5 Immature Gran % (Auto) Neut % (Auto) Lymph % (Auto) [place] % (Auto) Eos % (Auto) Baso % (Auto) Lymph # (Auto) [place] # (Auto) Eos # (Auto) Baso # (Auto) Abs Immat Gran (auto) Absolute Neuts (auto) Absolute Nucleated RBC 0.000 Nucleated RBC % (auto) 0.0 Sodium 143 Potassium 4.4 Chloride 105 Carbon Dioxide 31 H Anion Gap 11 L BUN 4 L Creatinine 0.73 Estim Creat Clear Calc 152.3 Estimated GFR > 60 Random Glucose 84 Calcium 9.2 D Total Bilirubin 0.8 1.0 Direct Bilirubin 0.3 AST 39 H 14 ALT 133 H 50 H Alkaline Phosphatase 122 H 114 Total Protein 5.1 L 5.9 L Albumin 3.3 L 3.9 Lipase 118 H Urine Color Urine Appearance Urine pH Ur Specific [place] Urine Protein Urine Glucose (UA) Urine Ketones Urine Blood Urine Nitrite Ur Leukocyte Esterase Urine RBC Urine WBC Ur Squamous Epith Cells Calcium Oxalate Crystal Urine Bacteria Hyaline Casts COVID-19 ([facility]) COVID-19 Clin Com 06/17/22 05:20 WBC RBC Hgb Hct MCV MCH MCHC RDW Plt Count MPV Immature Gran % (Auto) Neut % (Auto) Lymph % (Auto) [place] % (Auto) Eos % (Auto) Baso % (Auto) Lymph # (Auto) [place] # (Auto) Eos # (Auto) Baso # (Auto) Abs Immat Gran (auto) Absolute Neuts (auto) Absolute Nucleated RBC Nucleated RBC % (auto) Sodium Potassium Chloride Carbon Dioxide Anion Gap BUN Creatinine Estim Creat Clear Calc Estimated GFR Random Glucose Calcium Total Bilirubin Direct Bilirubin AST ALT Alkaline Phosphatase Total Protein Albumin Lipase 17 Urine Color Urine Appearance Urine pH Ur Specific [place] Urine Protein Urine Glucose (UA) Urine Ketones Urine Blood Urine Nitrite Ur Leukocyte Esterase Urine RBC Urine WBC Ur Squamous Epith Cells Calcium Oxalate Crystal Urine Bacteria Hyaline Casts COVID-19 ([facility]) COVID-19 Clin Com Airway Mallampati Class: II TM Dist: >3cm Neck ROM: Full Heart: rr Lungs: cta Assessment and Plan Final Anesthetic Review Patient Risk: Low Procedure Risk: Intermediate Anesthetic Plan Anesthetic Plan: GA Disposition: Standard PACU
--- NOTE | 2022-06-17 10:37 | MHC.SHP ---
Pre-Procedural Eval Section A Date of Service: 06/17/22 The patient is an INPATIENT: Yes Section B Chief Complaint: Gallstone Pancreatitis Allergies: Allergies Allergy/AdvReac Type Severity Reaction Status Date / Time No Known Allergies Allergy Verified 06/12/22 20:37 [No Known Allergies*] Plan Diagnosis/Plan: Unchanged I have reviewed the history and physical and performed a pertinent physical examination on my patient. No changes have occurred unless specified. Time Spent With Patient Time: Total time managing care of this patient today ____ minutes.
--- NOTE | 2022-06-17 12:26 | P.OP_ITS ---
Operative Note Operative Note Date of Service: 06/17/22 Narrative: Preoperative diagnosis: gallstone pancreatitis Postoperative diagnosis: Same Procedure: Laparoscopic cholecystectomy Surgeon: Eber Daigle MD Deputy Prosecuting Attorney: SAMIR Soni Anesthesia: General endotracheal Indications for procedure: 31-year-old male patient presenting with complaints of epigastric abdominal pain found to have gallstone pancreatitis by chemistries and CT. This is the 2nd episode of chest on pancreatitis. He presents now for laparoscopic or possible open cholecystectomy. Operative findings: Normal appearing gallbladder with some minor adhesions. No evidence of acute cholecystitis. Specimen: gallbladder Estimated blood loss: 5 mL Complications: non Procedure details: Patient was brought to the OR and placed in a supine position. After administering general anesthesia the patient's abdomen was prepped with ChloraPrep and draped in a sterile fashion. Local anesthesia consisting of 0.5% Sensorcaine without epinephrine was infiltrated in a periumbilical region. A 5 mm incision was made above the umbilicus in a transverse fashion. The Veress needle was then inserted while elevating abdominal cavity with towel clips. After positive drop test the abdomen was in sufflated to a pressure of 15 mm of mercury. The Veress needle was then removed and a 5 mm trocar inserted. The camera was inserted in the abdomen explored. A 12 mm trocar was then placed in the epigastrium. Two 5 mm trocars placed in the right upper quadrant by the physician assistant certified. The patient was placed in reverse Trendelenburg positioning and rotated to the left. The gallbladder was grasped with the fundus and retracted cephalad by the physician assistant certified. The infundibulum was then grasped and retracted away from the liver bed, also by the physician assistant certified. The Dolphin dissected was then used by the surgeon to dissect the peritoneum off the infundibulum to reveal the junction with the cystic duct. Cystic artery was noted slightly medial and posterior to the cystic duct. After obtaining a critical view the cystic duct was doubly clipped and divided. The cystic artery was then doubly clipped and divided. The gallbladder was then dissected off the liver bed using electrocautery with an L hook. Hemostasis was assured all times using the electrocautery. When the gallbladder is completely dissected off the liver bed was placed in an Endo-Catch bag and brought out through the epigastric incision. The gallbladder was sent to pathology for further examination. The abdomen was then re-examined. The liver bed was irrigated and suctioned dry. No bleeding or bile leak could be identified. CO2 was then evacuated and all trocars removed. Fascia was closed at the epigastric incision using a [id number] 0 Polysorb suture. Skin was closed in all incisions using a subcuticular 4 0 Polysorb suture by both the surgeon and physician assistant certified. Sterile dressings consisting of Steri-Strips, 2 x 2 gauze, and Tegaderm were then applied. The patient tolerated the procedure well. Sponge instrument and needle counts reported as correct. The patient was transferred to PACU in stable condition.
[2022-06-17] MEDS: HYDROmorphone HCl 1 MG/ML SYRINGE IVPUSH (15:42)
[2022-06-17] MEDS: ondansetron HCL 4 MG/2 ML VIAL IVPUSH (18:35)
[2022-06-17] MEDS: Zolpidem Tartrate 5 MG TABLET PO (21:51)
[2022-06-18] MEDS: HYDROmorphone HCl 0.5 MG/0.5 ML SYRINGE IVPUSH ×4 (01:05→14:27)
[2022-06-18 03:28] VITALS: BP 150/91; PULSE 58; RESP 17; TEMP 36.8; O2SAT 94
[2022-06-18] MEDS: HYDROmorphone HCl 1 MG/ML SYRINGE IVPUSH (03:43)
--- NOTE | 2022-06-18 07:59 | PM.PNGS ---
Subjective Subjective Date of Service: 06/18/22 Interval history: C/o r shoulder pain last night and incisional pain. Shoulder pain resolved with walking. Still has the incisional pain, mostly in RUQ and is painful to get up. Denies nausea, tolerating diet. Physical Exam Vital Signs: Vital Signs: Last Vital Signs Temp 98.2 F 06/18/22 03:28 Pulse 58 06/18/22 03:28 Resp 17 06/18/22 03:28 BP 150/91 H 06/18/22 03:28 Pulse Ox 94 06/18/22 03:28 O2 Del Method 06/18/22 03:28 O2 Flow Rate 3 06/17/22 14:19 BMI result Body Mass Index 29.7 Const: General: comfortable, no acute distress and alert Orientation/consciousness: patient oriented x3 Resp: Effort & Inspection: normal respiratory effort GI: Inspection: No distended and Yes incision (clean, dressings intact) Palpation (GI): Soft to palpation, Tenderness to palpation present (GI) (mild, incisional), no guarding and not rigid Percussion: Yes normal to percussion Skin: General skin exam: no rashes or lesions noted Neuro: General: patient oriented x3 Objective Data Active Medications Acetaminophen (Acetaminophen 325 Mg Tablet) 650 mg PO Q6H PRN PRN Reason: Pain, Mild (Pain Scale 1-3) Last Admin: 06/16/22 21:01 Dose: 650 mg Documented By: KRISTIAN Famotidine (Famotidine 20 Mg Tablet) 20 mg PO BID [facility] Last Admin: 06/17/22 19:46 Dose: 20 mg Documented By: THU Hydromorphone HCl (Hydromorphone Hcl 1 Mg/Ml Syringe) 1 mg IVPUSH Q2H PRN; Protocol PRN Reason: Pain, Moderate (Pain Scale 4-6 Last Admin: 06/18/22 03:43 Dose: 1 mg Documented By: JOSHUA Hydromorphone HCl (Hydromorphone Hcl 0.5 Mg/0.5 Ml Syringe) 0.5 mg IVPUSH Q3H PRN; Protocol PRN Reason: Pain, Severe (Pain Scale 7-10) Last Admin: 06/18/22 06:21 Dose: 0.5 mg Documented By: JOSHUA Lactated Ringer's (Lr) 1,000 mls @ 80 mls/hr IVCONT .[id number] [facility] Last Admin: 06/17/22 19:47 Dose: 80 mls/hr Documented By: THU Methadone HCl (Methadone Hcl 20 Mg/2 Ml Oral.Conc) 45 mg PO DAILY [facility] Last Admin: 06/17/22 08:45 Dose: 45 mg Documented By: SANDRA Ondansetron HCl (Ondansetron Hcl 4 Mg/2 Ml Vial) 4 mg IVPUSH Q8H PRN PRN Reason: Nausea Last Admin: 06/17/22 18:35 Dose: 4 mg Documented By: ASHWINI Oxycodone HCl (Oxycodone Hcl Immed Release 5 Mg Tablet) 5 mg PO Q6H PRN PRN Reason: Pain, Moderate (Pain Scale 4-6 Last Admin: 06/13/22 17:43 Dose: 5 mg Documented By: BRANDIE Sodium Chloride (0.9 % Sodium Chloride Flush 3 Ml Syringe) 3 ml IVFLUSH QSHIFT [facility] Last Admin: 06/17/22 23:53 Dose: Not Given Documented By: JOSHUA Non-Admin Reason: IV Running Zolpidem Tartrate (Zolpidem Tartrate 5 Mg Tablet) 5 mg PO BEDTIME PRN PRN Reason: Insomnia Last Admin: 06/17/22 21:51 Dose: 5 mg Documented By: THU Labs 06/14/22 05:46 06/17/22 05:20 Procedures Date of Service Date of Service: 06/18/22 Progress Note: A&P Assessment and plan (1) Acute gallstone pancreatitis: Status: Acute (2) S/P laparoscopic cholecystectomy: Status: Acute Plan 31 year old male admitted with gallstone pancreatitis now POD #1 s/p lap CCY. Doing fairly well post op overall but reporting incisional pain. VSS. Abd exam benign with appropriate post op tenderness, dressings c/d/i. Will reassess later today for possible dc to home if comfortable on PO analgesics. Dc IVF. Patient comfortable with plan. Time Spent With Patient Time: Total time managing care of this patient today ____ minutes. Quality Stroke Does the patient have a stroke diagnosis?: No VTE Prior VTE?: No VTE Risk Level:: Surgical - low VTE Device Contraindication: N/A - Device Ordered VTE Drug Contraindication: Treatment Not Indicated
[2022-06-18 08:00] VITALS: BP 162/100; PULSE 56; RESP 18; TEMP 36.8; O2SAT 97
[2022-06-18] MEDS: Acetaminophen 325 MG TABLET 650 MG PO ×2 (09:10→14:28)
[2022-06-18] MEDS: Famotidine 20 MG TABLET PO (09:10)
[2022-06-18] MEDS: methADONE HCl 20 MG/2 ML ORAL.CONC 45 MG PO (09:10)
[2022-06-18] MEDS: 0.9 % Sodium Chloride Flush 3 ML SYRINGE IVFLUSH (09:11)
[2022-06-18 10:17] VITALS: BP 156/91; PULSE 7; RESP 18
[2022-06-18 11:20] VITALS: BP 153/95; PULSE 67; RESP 18; TEMP 36.4; O2SAT 96
--- NOTE | 2022-06-18 12:05 | HO.POSTANES ---
Post Anesthesia Evaluation Post Anesthesia Evaluation Vital Signs: Vital Signs Temp Pulse Resp BP Pulse Ox O2 Del Method 06/18/22 11:20 97.6 F 67 18 153/95 H 96 Room Air 06/18/22 10:17 7 L 18 156/91 H 06/18/22 08:00 98.3 F 56 18 162/100 H 97 Room Air 06/18/22 03:28 98.2 F 58 17 150/91 H 94 Room Air Anesthesia: General Endotracheal-GETA Mental Status: Awake Pain Control: Satisfactory (incisional pain and RUQ oain) Nausea/Vomiting: None Hydration: Adequate Anesthesia-Related Issues: No Anes. Related Issues
--- NOTE | 2022-06-24 13:25 | P.DS_ITS ---
DS: Providers Provider Date of Service: 06/18/22 Date of admission: 06/12/22 23:55 Primary care physician: Ayleen Us NP Attending physician on admission: Eber Daigle Attending physician on discharge: Eber Daigle DS: Diagnosis Discharge Diagnosis (1) Acute gallstone pancreatitis: Status: Acute (2) S/P laparoscopic cholecystectomy: Status: Acute DS: Summary Hospital Course Hospital Course: HPI AT ADMISSION: Justin Shay is a 31 year old male Presenting with complaints of abdominal pain in the epigastrium and right upper quadrant beginning yesterday. The pain was associated with nausea, fever and chills. He had a previous episode of similar pain in February 2021 and was determined to have gallstone pancreatitis. Initially the plan was to proceed with a la paroscopic cholecystectomy however as symptoms improved he decided to avoid surgery at that time. He now returns with tenderness in the right upper quadrant and epigastrium. Laboratories revealed elevated bilirubin, transaminases, alkaline phosphatase and lipase levels. Findings are consistent with a gallstone pancreatitis. HOSPITAL COURSE: He was admitted to the surgical service for further treatment of the gallstone pancreatitis. Repeat studies revealed a decrease in the liver function tests suggestive of a passed stone. It was recommended to proceed with laparoscopic cholecystectomy once the pancreatitis has resolved possibly early next week. He was kept NPO, IVF with PRN analgesics. His LFTs were trended and had gradual improvement and normalization of bilirubin and lipase. On 06/17/22, a laparoscopic cholecystectomy was performed by Dr. Daigle without complication. The patient tolerated the procedure well. He had an uncomplicated recovery course. On POD #1, he felt well but was having referred right shoulder pain and incisional pain. He was tolerating a solid diet without nausea or vomiting. His abdomen was benign with appropriate post op tenderness and clean dressings. He was reassessed later in the day and felt improved and ready for discharge to home. He was discharged on 06/18/22 in stable condition. Time Spent with Patient Time attestation: Total time managing care of this patient today ____ minutes. Discharge coordination time: Less than 30 minutes Quality: Safe Use of Opioids Does Pt have an Active Cancer Diagnosis on the Problem List?: No Quality: Stroke Does the patient have a stroke diagnosis?: No Physical Exam Vital Signs: Vital Signs: Last Vital Signs Temp 97.6 F 06/18/22 11:20 Pulse 67 06/18/22 11:20 Resp 18 06/18/22 11:20 BP 153/95 H 06/18/22 11:20 Pulse Ox 96 06/18/22 11:20 O2 Del Method 06/18/22 11:20 O2 Flow Rate 3 06/17/22 14:19 BMI result Body Mass Index 29.7 Const: General: comfortable, no acute distress and alert [place] ation/consciousness: patient oriented x3 Resp: Effort & Inspection: normal respiratory effort GI: Inspection: No distended and Yes incision (dressings c/d/i) Palpation (GI): Soft to palpation, Tenderness to palpation present (GI) (mild, incisional), no guarding and not rigid Percussion: Yes normal to percussion Skin: General skin exam: no rashes or lesions noted Neuro: General: patient oriented x3 DS: Data Data Completed and Pending Completed studies during hospitalization [Text1]: 06/17/22 12:15 Surgical [PTH] Routine Gallbladder, cholecystectomy:? Chronic cholecystitis; cholelithiasis. Procedures Resection of Gallbladder, Percutaneous Endoscopic Approach (06/12/22) Discharge Plan Discharge Anticipated Discharge Date/Time: 06/18/22 14:39 Patient Disposition: Home, Self-Care Discharge Diagnosis: gallstone pancreatitis, s/p laparoscopic cholecystectomy Referrals: Eber Daigle MD [Physician] - 1 Week Physician,Baljeet Hendrix [Physician] - 1 Week Discharge Medications: New acetaminophen 500 mg capsule 1,000 mg PO Q6H PRN (Reason: abdominal pain) Qty: 30 0RF ibuprofen 600 mg tablet 600 mg PO TID PRN (Reason: abdominal pain) Qty: 30 0RF Continued gabapentin 600 mg tablet 600 mg PO TID methadone [Methadone Intensol] 10 mg/mL Concentrate 45 mg PO DAILY lisinopril 10 mg Tablet 10 mg PO DAILY Discharge Orders: Discharge Order (Routine); Ordered 06/18/22 Ordered By: Mel Pizarro Diet: Low fat, low cholesterol Activity on Discharge: No heavy lifting Stand Alone Forms: Patient Portal Discharge page, Work/School Release Activity Restrictions/Additional Instructions: If the incision area is tender, you may apply an ice pack for short intervals (No more than 20 minutes on, followed by at least 20 minutes off). Do not apply heat. Do not use creams, lotions, or topical antibiotics unless instructed to do so by your surgeon. These can cause infection or allergic reaction. Ok to shower. Remove clear dressings 3 days following your procedure. You have steri strips (small white cloth strips) covering your incision- these will fall off ~1 week. No heavy lifting (>10lbs) or strenuous activity! Follow up in office with Dr. Daigle in 1 week. ([phone]) Call Your Doctor If: -Your temperature exceeds 101.5? F -You experience excessive pain or swelling -You have an unexpected reaction to medication -You have excessive bleeding -You experience continued vomiting/nausea -Your incision begins to separate -Your incision shows signs of infection such as increased redness, swelling, excessive pain, drainage (light blood or clear fluid is normal) or heat Care Plan Goals: Return to baseline health and gradual return to activity following recovery period. Health Concerns: gallstone pancreatitis Plan of Treatment: s/p laparoscopic cholecystectomy F/u in office in 1 week Assessment: Doing well post op Discharge Date/Time: 06/18/22 15:30
== END 2022-06-18 15:30 | disposition home or self-care (01) | DRG 263 ==
LOC: HO.ED 23:55 → HO.EDOVER 06-13 00:04 → HO.S3 06-14 11:56
PROVIDERS: Surgery; Admitting Provider Surgery; Emergency Provider Emergency Medicine Emergency Medical Services; PCP Nurse Practitioner Family; Visit Provider Surgery
PROC: 0FT44ZZ Resection of Gallbladder, Percutaneous Endoscopic Approach (ICD-10-PCS; CPT 47562; principal; 2022-06-17 10:50)
DX: K85.10 Biliary acute pancreatitis without necrosis or infection (principal); F11.20 Opioid dependence, uncomplicated; F17.290 Nicotine dependence, other tobacco product, uncomplicated; I10 Essential (primary) hypertension; Z71.6 Tobacco abuse counseling; Z20.822 Contact with and (suspected) exposure to COVID-19; Z79.899 Other long term (current) drug therapy
CPT/HCPCS: 36415; 74177; 76705; 80048; 80053; 80076; 81001; 83690; 85025; 85027; 87086; 87635; 88304; 96361; 96374; 96375; 99285; J0330; J1170; J1885; J2250; J2405; J3010; Q9967

== ENCOUNTER → 2022-06-28 08:55 | Outpatient (BNVA) | payer OTHER, SELFPAY | PROVIDERS: PCP Nurse Practitioner Family; Visit Provider Surgery | DX: Z90.49 Acquired absence of other specified parts of digestive tract (principal); K85.90 Acute pancreatitis without necrosis or infection, unspecified | CPT/HCPCS: 99212 ==

== ENCOUNTER 2024-07-03 17:18 | Emergency (ER) | payer OTHER, SELFPAY ==
--- NOTE | ~2024-07-03 | CT_ITS ---
CLINICAL HISTORY: hypoxia CT chest without contrast Comparison: Chest x-ray from 07/03/2024 Findings: Combination of the bibasilar atelectasis and consolidation, with mild bronchiectasis including left lower lobe. Mild emphysematous changes and scarring also present. Trace right pleural fluid. No pneumothorax. Nonenlarged mediastinal lymphadenopathy in this noncontrast study. Borderline cardiomegaly with trace pericardial effusion. Mild fat deposition of the imaged liver. Gallbladder is surgically absent. Mild and/or borderline splenomegaly. Mild T8 vertebral height loss appears old/chronic and accentuated by upper endplate Schmorl's nodes. Additional Schmorl's nodes are multifocal. Fusion of the sternum and manubrium. IMPRESSION: 1. Combination bibasilar atelectasis and consolidation, concerning for pneumonia in both lower lobes. Recommend attention on follow-up to ensure resolution. 2. Borderline splenomegaly. This document has been electronically signed by: Bobby Vega MD on 07/03/2024 21:38:27
--- NOTE | ~2024-07-03 | XR_ITS ---
CLINICAL HISTORY: chest pain 1 view chest x-ray Comparison: None Findings: The lungs are clear. Heart size is normal. No acute fracture. IMPRESSION: 1. No acute findings. This document has been electronically signed by: Jewels Lees MD on 07/03/2024 18:55:44
[2024-07-03 17:29] VITALS: BP 161/89; PULSE 110; O2SAT 94
--- NOTE | 2024-07-03 17:50 | ECG_ITS ---
Test Reason : PAIN Blood Pressure : */* mmHG Vent. Rate : 91 BPM Atrial Rate : 91 BPM P-R Int : 184 ms QRS Dur : 90 ms QT Int : 368 ms P-R-T Axes : 36 29 37 degrees QTcB Int : 452 ms Normal sinus rhythm Cannot rule out Anterior infarct , age undetermined Abnormal ECG No previous ECGs available Referred By: Kike Herrera Electronically Signed By: HANNAH LARSON MD
--- NOTE | 2024-07-03 18:15 | ED.GENADULT ---
HPI - General Adult General Chief complaint: Overdose Stated complaint: overdose narcanned 2x, A&Ox4 Time Seen by Provider: 07/03/24 17:31 Source: patient, RN notes reviewed and old records reviewed Mode of arrival: EMS Limitations: no limitations History of Present Illness ED Provider: Javier RUBY narrative: 34-year-old male presents for evaluation of an overdose. Patient was found unresponsive by family at home. His girlfriend was apparently performing CPR for an unknown period of time. They administered 2 mg of intranasal Narcan without effect. When EMS arrived, they administered 0.5 mg Narcan IV with good effect. The patient admits to using opiates. He reports he had been clean for over a year before using today He denies any chest pain or any other complaints or concerns. The patient explicitly denies that this was an intentional overdose. He is adamant he was using recreationally and accidentally overdosed The patient is not interested in detox Related Data Home Medications ?Medication ?Instructions ?Recorded ?Confirmed gabapentin 600 mg tablet 600 mg PO TID 06/13/22 06/13/22 methadone 10 mg/mL oral 45 mg PO DAILY 06/13/22 06/13/22 concentrate (Methadone Intensol) lisinopril 10 mg tablet 10 mg PO DAILY 06/18/22 06/18/22 Previous Rx's ?Medication ?Instructions ?Recorded acetaminophen 500 mg capsule 1,000 mg (2 x 500 mg) PO Q6H PRN 06/18/22 abdominal pain #30 caps ibuprofen 600 mg tablet 600 mg PO TID PRN abdominal pain 06/18/22 #30 tabs amoxicillin 875 mg-potassium 1 tab PO Q12H #14 tabs 07/03/24 clavulanate 125 mg tablet azithromycin 250 mg tablet See Rx Instructions PO .COMPLEX #6 07/03/24 tabs Allergies Allergy/AdvReac Type Severity Reaction Status Date / Time No Known Allergies Allergy Verified 07/03/24 18:25 [No Known Allergies*] Review of Systems Constitutional: Constitutional: Denies body ache(s), Denies chills, Denies fever(s), Denies frequent falls and Denies headache(s) Eyes: Eyes: Denies blind spots and Denies blurry vision ENT: Denies vertigo, Denies dizziness and Denies headache(s) Cardiovascular: Cardiovascular: Denies chest pain and Denies dyspnea Respiratory: Respiratory: Denies cough and Denies dyspnea Gastrointestinal: Gastrointestinal: Denies abdominal pain, Denies nausea and Denies vomiting Musculoskeletal: Musculoskeletal: Denies back pain Neurologic: Denies vertigo, Denies dizziness, Denies frequent falls and Denies headache(s) Psychiatric: Psychiatric: Denies anxiety, Denies depression, Denies panic attacks, Denies homicidal ideation and Denies suicidal ideation [facility] Past Medical History Medical History Acute pancreatitis HTN (hypertension) Surgical History History of ankle surgery Hx laparoscopic cholecystectomy (06/17/22) Social History Social History Household Members: Family Housing: Apartment Do you presently have visiting nurse or other home services: No Alcohol intake: never Comment: soreness Patient Tobacco Use Status: Current everyday Tobacco user Tobacco use type: Smokeless Tobacco Smoked in Last 30 Days: No e-Cigarette/Vaping Use: Currently Using Second Hand Smoke Exposure: No Use of substances other than those prescribed or required for medical reasons: Yes Substance Use Type: Opiates Advance Directives: No Advance Directives Information Provided: No service: No Current occupational status: employed Physical Exam ED Vital Signs: Vital Signs - 24 hr 07/03/24 18:20 07/03/24 19:54 Temperature 97.5 F 97.2 F Pulse Rate 99 100 Respiratory Rate 12 17 Blood Pressure 136/92 H 131/84 Pulse Oximetry 92 95 Oxygen Delivery Method Nasal Cannula Nasal Cannula Oxygen Flow Rate 6 BMI result Body Mass Index 28.2 Const General: healthy appearing, comfortable, no acute distress, alert and awake Nutritional Appearance: well nourished Orientation/consciousness: patient oriented x3 HENMT Head: Yes normocephalic and Yes atraumatic Eyes Eyelids: Yes eyelids normal Conjunctivae: conjunctivae normal Sclerae: sclerae normal Corneas: corneas normal Pupils: Equal, round and reactive pupils present EOM: EOMs intact bilaterally Neck Neck: Yes full ROM Chest Other: Erythema with small petechiae to the center of the sternum. No crepitus Resp Effort & Inspection: normal respiratory effort, able to speak in complete sentences, no audible wheezes and not labored Auscultation: clear to auscultation bilaterally GI Inspection: No distended Palpation (GI): Soft to palpation, not firm, nontender, no guarding and not rigid Skin General skin exam: elasticity normal Neuro General: patient oriented x3 Cranial nerves: Yes CN's II-XII intact bilaterally, Yes Equal, round and reactive pupils present and Yes Bilaterally intact EOM present Cognition (Neuro): normal cognition Extrem Other: Moving all extremities well without any obvious deformities Course Reevaluation(s) Reevaluation #1: Patient remained on 6 L throughout his ER stay. When attempting to wean him down to 4 L he became hypoxic again to 89%. I ordered a CT scan of the chest at this time. Sharp the after the test was performed, the patient wanted to go to the bathroom, after walking back from the bathroom his oxygen saturation was 90% on room air. He then improved to 96% on room air. He was awake, talking to family and has remained at 96% on room air Time: 21:15 Reevaluation #2: Patient's CT chest shows bilateral lower lobe pneumonia. Difficult to tell if this is truly pneumonia, aspiration pneumonia or aspiration pneumonitis. He does have a significant leukocytosis with a left shift. His oxygen saturation now 96% on room air, he was awake, alert and oriented. I discussed these findings with the patient, he is comfortable with discharge. He will fill his prescription at the 24 hour [facility]. Time: 22:06 Medications Administered Discontinued Medications Generic Name Dose Route Start Last Admin Trade Name Anatoliyq PRN Reason Stop Dose Admin Ondansetron HCl 4 mg 07/03/24 19:39 07/03/24 19:46 Ondansetron Hcl 4 Mg/2 Ml Vial IVPUSH 07/03/24 19:40 4 mg ONCE ONE Administration Medical Decision Making Medical Decision Making MDM Narrative: 34-year-old male presents for evaluation of an opioid overdose. The patient admits to snorting opioids. He reports that he has been clean for over a year. He denies any intent to self-harm. I offered detox resources which he declines. We will check basic labs, chest x-ray and EKG. The patient's oxygen saturation is 91% on 6 L via nasal cannula. He was afebrile, he is not coughing. Plan for x-ray to rule out traumatic pneumothorax versus pneumonitis Differential Diagnosis Differential Diagnoses: The differential diagnosis associated with the presentation includes Drug overdose Opiate overdose Aspiration pneumonia Pneumothorax Substance abuse Admission/Observation Consideration of admission/observation: Escalation of care including admission/observation considered Lab Data MDM Lab Attestation statement: I reviewed the patient's lab results. Leukocytosis to 19.9, this may be related to his drug overdose versus aspiration pneumonia. No significant anemia. Normal platelet count. No significant electrolyte abnormalities warranting intervention. Renal function within normal limits. 07/03/24 18:55 07/03/24 18:55 Labs: Lab Results 07/03/24 Range/Units 18:55 WBC 19.9 H (4.8-10.8) X10*3/uL RBC 5.04 (4.60-5.80) X10*6/uL Hgb 16.2 D (14.0-18.0) g/dl Hct 43.2 (42.0-52.0) % MCV 85.7 (80.0-98.0) fL MCH 32.1 (27.0-33.0) pg MCHC 37.5 H (31.0-36.0) g/dl RDW 11.6 (11.0-16.0) % Plt Count 323 D (160-400) X10*3/uL MPV 10.9 (9.4-12.4) fL Immature Gran % (Auto) 1.0 H (0.0-0.4) % Neut % (Auto) 80.9 H (45-73) % Lymph % (Auto) 9.8 L (20-40) % [place] % (Auto) 7.3 (2-11) % Eos % (Auto) 0.6 (0-4) % Baso % (Auto) 0.4 (0-2) % Lymph # (Auto) 2.0 (1.2-4.9) X10*3/uL [place] # (Auto) 1.5 H (0.1-1.2) X10*3/uL Eos # (Auto) 0.1 (0.0-0.4) X10*3/uL Baso # (Auto) 0.1 (0.0-0.2) X10*3/uL Abs Immat Gran (auto) 0.19 H (0.00-0.03) X10*3/uL Absolute Neuts (auto) 16.1 H (2.0-8.3) x10*3/uL Absolute Nucleated RBC 0.000 (0.0-0.012) X10*3/uL Nucleated RBC % (auto) 0.0 (0.0-0.2) /100WBC Sodium 139 (135-145) mmol/L Potassium 3.3 (3.3-5.1) mmol/L Chloride 107 (96-108) mmol/L Carbon Dioxide 23 (22-29) mmol/L Anion Gap 12 (12-20) BUN 10 (9-16) mg/dL Creatinine 0.77 (0.5-1.4) mg/dL Estim Creat Clear Calc 136.9 Estimated GFR > 60 Random Glucose 157 H (60-115) mg/dL Calcium 8.5 D (8.4-10.2) mg/dL Total Bilirubin 0.4 (0.0-1.0) mg/dL AST 41 H (5-37) U/L ALT 68 H (0-40) U/L Alkaline Phosphatase 72 (39-117) U/L Total Protein 7.3 (6.5-8.0) g/dL Albumin 4.5 (3.5-5.0) g/dL Lipase 20 (8-78) U/L Ethyl Alcohol < 10 mg/dL Independent Interpretation I performed an independent interpretation of an: CT Scan Interpretation: Agree with Radiology interpretation Radiology Impression Discussion of test interpretation with radiology: I have reviewed the radiologist's reading. Radiologist Impression: Findings: Combination of the bibasilar atelectasis and consolidation, with mild bronchiectasis including left lower lobe. Mild emphysematous changes and scarring also present. Trace right pleural fluid. No pneumothorax. Nonenlarged mediastinal lymphadenopathy in this noncontrast study. Borderline cardiomegaly with trace pericardial effusion. Mild fat deposition of the imaged liver. Gallbladder is surgically absent. Mild and/or borderline splenomegaly. Mild T8 vertebral height loss appears old/chronic and accentuated by upper endplate Schmorl's nodes. Additional Schmorl's nodes are multifocal. Fusion of the sternum and manubrium. IMPRESSION: 1. Combination bibasilar atelectasis and consolidation, concerning for pneumonia in both lower lobes. Recommend attention on follow-up to ensure resolution. 2. Borderline splenomegaly. This document has been electronically signed by: Bobby Vega MD on 07/03/2024 21:38:27 Discharge Plan Discharge Clinical Impression: Accidental overdose, Pneumonia Patient Disposition: Home, Self-Care Instructions: Community Acquired Pneumonia (ED), Adult Overdose (ED) Additional Instructions: Your CT scan showed findings consistent with pneumonia. Take both antibiotics as prescribed Take these medications with food You should avoid illicit substance abuse. Follow-up with your primary doctor, return for new or worsening symptoms Prescriptions: New azithromycin 250 mg tablet See Rx Instructions .ROUTE .COMPLEX Qty: 6 0RF Rx Instructions: For 250 mg dose pack: take 500 mg today (day 1), then 250 mg for 4 days (days 2-5) amoxicillin-pot clavulanate 875-125 mg tablet 1 tab PO Q12H Qty: 14 0RF No Action gabapentin 600 mg tablet 600 mg PO TID methadone [Methadone Intensol] 10 mg/mL Concentrate 45 mg PO DAILY lisinopril 10 mg Tablet 10 mg PO DAILY acetaminophen 500 mg capsule 1,000 mg PO Q6H PRN (Reason: abdominal pain) Qty: 30 0RF ibuprofen 600 mg tablet 600 mg PO TID PRN (Reason: abdominal pain) Qty: 30 0RF Print Language: Togolese
[2024-07-03 18:20] VITALS: BP 136/92; PULSE 99; RESP 12; TEMP 36.4; O2SAT 92; BMI 28.2
[2024-07-03 18:58] LABS: MANUAL DIFF FLAG NO
[2024-07-03 19:19] LABS: Alanine Aminotransferase 68 U/L (0-40); Albumin Level 4.5 g/dL (3.5-5.0); Alkaline Phosphatase 72 U/L (39-117); Anion Gap 12 (12-20); Aspartate Amino Transferase 41 U/L (5-37); Bilirubin Total 0.4 mg/dL (0.0-1.0); Blood Urea Nitrogen 10 mg/dL (9-16); Calcium 8.5 mg/dL (8.4-10.2); Carbon Dioxide 23 mmol/L (22-29); Chloride 107 mmol/L (96-108); Creatinine Clr Calc Pharmacy 136.9; Estimated Glomerular Filt Rate > 60; Ethanol < 10 mg/dL; Glucose Random 157 mg/dL (60-115); Lipase 20 U/L (8-78); Potassium 3.3 mmol/L (3.3-5.1); Sodium 139 mmol/L (135-145); Total Protein 7.3 g/dL (6.5-8.0)
[2024-07-03 19:33] LABS: Basophils Absolute Auto 0.1 X10*3/uL (0.0-0.2); Basophils Percent Auto 0.4 % (0-2); Eosinophils Absolute Auto 0.1 X10*3/uL (0.0-0.4); Eosinophils Percent Auto 0.6 % (0-4); Hematocrit 43.2 % (42.0-52.0); Hemoglobin 16.2 g/dl (14.0-18.0); Imm Gran Abs Auto 0.19 X10*3/uL (0.00-0.03); Lymphocytes Percent Auto 9.8 % (20-40); Mean Corpuscular HGB Conc 37.5 g/dl (31.0-36.0); Mean Corpuscular Hemoglobin 32.1 pg (27.0-33.0); Mean Corpuscular Volume 85.7 fL (80.0-98.0); Mean Platelet Volume 10.9 fL (9.4-12.4); Monocytes Absolute Auto 1.5 X10*3/uL (0.1-1.2); Monocytes Percent Auto 7.3 % (2-11); Neutrophils Absolute Auto 16.1 x10*3/uL (2.0-8.3); Neutrophils Percent Auto 80.9 % (45-73); Platelet Count 323 X10*3/uL (160-400); Red Blood Count 5.04 X10*6/uL (4.60-5.80); Red Cell Distribution Width 11.6 % (11.0-16.0); White Blood Count 19.9 X10*3/uL (4.8-10.8)
[2024-07-03] MEDS: ondansetron HCL 4 MG/2 ML VIAL IVPUSH (19:46)
[2024-07-03 19:54] VITALS: BP 131/84; PULSE 100; RESP 17; TEMP 36.2; O2SAT 95
--- NOTE | 2024-07-03 20:03 | MHC.EDTECH ---
@ 2002 this tech removed cellphone fom belongings in [facility] and gave phone to patient. RN aware
[2024-07-03 23:05] VITALS: BP 133/84; PULSE 91; RESP 14; TEMP 36.9; O2SAT 92
[2024-07-03] MEDS: Naloxone HCl Nasal TAKE HOME 4 MG SPRAY 8 MG NOSTRILALT (23:24)
== END 2024-07-03 23:33 | disposition home or self-care (01) ==
PROVIDERS: Physician Assistant; Emergency Provider Emergency Medicine
DX: T40.1X1A Poisoning by heroin, accidental (unintentional), initial encounter (principal); R40.4 Transient alteration of awareness; Y92.9 Unspecified place or not applicable; J18.9 Pneumonia, unspecified organism; D72.829 Elevated white blood cell count, unspecified; F11.20 Opioid dependence, uncomplicated; I10 Essential (primary) hypertension; F17.200 Nicotine dependence, unspecified, uncomplicated; Z79.899 Other long term (current) drug therapy
CPT/HCPCS: 36415; 71045; 71250; 80053; 80307; 83690; 85025; 93005; 96374; 99284; 99285; J2405

== ENCOUNTER → 2024-07-03 17:49 | Outpatient (BNV) | payer OTHER, SELFPAY | PROVIDERS: Emergency Provider Emergency Medicine; Visit Provider Radiology Diagnostic Radiology | DX: J18.9 Pneumonia, unspecified organism (principal); J98.11 Atelectasis; R07.9 Chest pain, unspecified | CPT/HCPCS: 71045; 71250 ==

== ENCOUNTER → 2024-07-03 17:50 | Outpatient (BNV) | payer OTHER, SELFPAY | PROVIDERS: Emergency Provider Emergency Medicine; Visit Provider Internal Medicine Cardiovascular Disease | DX: R94.31 Abnormal electrocardiogram [ECG] [EKG] (principal); R07.9 Chest pain, unspecified | CPT/HCPCS: 93010 ==